=== PATIENT | male | born 1965 | race Caucasian/White ===

== ENCOUNTER 2018-02-21 21:13 | Emergency (ER) | payer MEDICAID ==
[~2018-02-21] VITALS: Ht 177.8 cm; Wt 100.0 kg
[~2018-02-21 21:13] MED LIST: ASPI-1130 PO; ATOR40TA72 PO; FOLI1TAB16 PO; HYDR-3973 PO; INSU100C10 SQ; LANTUS SQ; LISI-600 PO; MULT-1179 PO; POTA20TA19 PO; SYRI-641; THI100T PO; WEL625T PO
[2018-02-21 21:23] VITALS: BP 174/88
== END 2018-02-21 22:12 | disposition home or self-care (01) ==
LOC: ER 21:14
DX: E11.42 Type 2 diabetes mellitus with diabetic polyneuropathy (principal); I10 Essential (primary) hypertension; E78.00 Pure hypercholesterolemia, unspecified; Z86.73 Personal history of transient ischemic attack (TIA), and cerebral infarction without residual deficits; Z90.49 Acquired absence of other specified parts of digestive tract; Z98.890 Other specified postprocedural states; Z79.82 Long term (current) use of aspirin; Z79.4 Long term (current) use of insulin; Z79.899 Other long term (current) drug therapy; Z56.0 Unemployment, unspecified
CPT/HCPCS: 99283

== ENCOUNTER 2018-04-03 13:08 | Emergency (ER) | payer MEDICAID ==
[~2018-04-03] VITALS: Ht 167.6 cm; Wt 90.0 kg
[~2018-04-03 13:08] MED LIST changes: -POTA20TA19 PO
[2018-04-03 15:47] VITALS: BP 155/85
== END 2018-04-03 15:48 | disposition home or self-care (01) ==
LOC: ER 13:09
DX: S00.81XA Abrasion of other part of head, initial encounter (principal); R09.89 Other specified symptoms and signs involving the circulatory and respiratory systems; E78.00 Pure hypercholesterolemia, unspecified; I10 Essential (primary) hypertension; E11.9 Type 2 diabetes mellitus without complications; Z86.73 Personal history of transient ischemic attack (TIA), and cerebral infarction without residual deficits; Z90.49 Acquired absence of other specified parts of digestive tract; Z98.890 Other specified postprocedural states; Z59.0 Homelessness; Z56.0 Unemployment, unspecified; Z79.82 Long term (current) use of aspirin; Z79.899 Other long term (current) drug therapy; Z79.4 Long term (current) use of insulin; W01.198A Fall on same level from slipping, tripping and stumbling with subsequent striking against other object, initial encounter; Y93.89 Activity, other specified; Y92.89 Other specified places as the place of occurrence of the external cause; Y99.9 Unspecified external cause status
CPT/HCPCS: 71045; 99284

== ENCOUNTER 2018-04-19 19:44 | Emergency (ER) | payer MEDICAID ==
[~2018-04-19] VITALS: Ht 180.3 cm; Wt 100.0 kg
[2018-04-19 19:45] VITALS: BP 164/92
[2018-04-19] MEDS ORDERED: LISI-600 PO (20:52)
== END 2018-04-19 20:59 | disposition home or self-care (01) ==
LOC: ER 20:02
DX: S02.2XXA Fracture of nasal bones, initial encounter for closed fracture (principal); I10 Essential (primary) hypertension; E11.9 Type 2 diabetes mellitus without complications; E78.00 Pure hypercholesterolemia, unspecified; Z90.49 Acquired absence of other specified parts of digestive tract; Z59.0 Homelessness; Z56.0 Unemployment, unspecified; Z79.82 Long term (current) use of aspirin; Z76.0 Encounter for issue of repeat prescription; Z79.899 Other long term (current) drug therapy; Z86.73 Personal history of transient ischemic attack (TIA), and cerebral infarction without residual deficits; Y04.0XXA Assault by unarmed brawl or fight, initial encounter; Y93.89 Activity, other specified; Y99.8 Other external cause status; Y92.89 Other specified places as the place of occurrence of the external cause
CPT/HCPCS: 99283

== ENCOUNTER 2018-06-03 11:20 | Emergency (ER) | payer MEDICAID ==
[~2018-06-03] VITALS: Ht 180.3 cm; Wt 81.8 kg
[2018-06-03 11:39] VITALS: BP 153/110
[2018-06-03] MEDS ORDERED: AZIT-63 PO (15:02)
== END 2018-06-03 15:11 | disposition home or self-care (01) ==
LOC: ER 11:20
DX: J06.9 Acute upper respiratory infection, unspecified (principal); E78.00 Pure hypercholesterolemia, unspecified; I10 Essential (primary) hypertension; E11.9 Type 2 diabetes mellitus without complications; Z86.73 Personal history of transient ischemic attack (TIA), and cerebral infarction without residual deficits; Z90.49 Acquired absence of other specified parts of digestive tract; Z98.890 Other specified postprocedural states; Z79.82 Long term (current) use of aspirin; Z79.4 Long term (current) use of insulin; Z79.899 Other long term (current) drug therapy; Z59.0 Homelessness; Z56.0 Unemployment, unspecified
CPT/HCPCS: 99283

== ENCOUNTER 2018-06-20 10:39 | Inpatient (IN) | payer MEDICAID ==
[~2018-06-20] VITALS: Ht 180.3 cm; Wt 86.4 kg
[~2018-06-20 10:39] MED LIST changes: +AZIT-63 PO
[2018-06-20] MEDS ORDERED: acetaminophen 325mg tablet PO ONE (11:35)
--- NOTE | 2018-06-20 11:50 | NUR ---
CALLED AND SPOKE WITH HERIBERTO MORFIN TO COME AND EVALUATE AND ASSIST WITH DISCHARGE
--- NOTE | 2018-06-20 13:19 | NUR ---
PT IS SLEEPING LAYTING ON HIS RIGHT SIDE, RESPIRATIONS EVEN AND UNLABORED, NO DISTRESS NOTED AT THIS TIME
--- NOTE | 2018-06-20 13:20 | NUR ---
HERIBERTO CASE MANAGEMENT SAID THAT SHE DOES NOT KNOW WHAT SHE CAN DO FOR THE PT AT THIS TIME.
--- NOTE | 2018-06-20 14:19 | NUR ---
PT HAS STOOL CAKED TO HIS BACK AND RECTUM. STOOL HAS BEEN CLEANED UP AND NEW CLOTHES GIVEN TO PT. PT CALLED ME A "BITCH" AND I TOLD HIM THAT HE SHOULD BE NICER TO THE PEOPLE THAT ARE HELPING TO TAKE CARE OF HIM.
--- NOTE | 2018-06-20 15:34 | NUR ---
PT SITUATION REVIEWED WITH CHARGE NURSE NAOMI MAYEN. PT IS UN ABLE TO WALK, AND PT'S ELECTRIC WHEELCHAIR IS AT THE CT.
--- NOTE | 2018-06-20 15:35 | NUR ---
NO NEW ORDERS AT THIS TIME.
--- NOTE | 2018-06-20 15:57 | NUR ---
PT SLEEPING LAYING SUPINE, RESPIRATIONS EVEN AND UNLABORED. NO DISTRESS NOTED AT THIS TIME
[2018-06-20] MEDS ORDERED: acetaminophen 325mg tablet PO PRN (17:10)
[2018-06-20] MEDS ORDERED: mag hydrox/Alum hydrox/simeth 30ml oral suspension PO PRN (17:10)
[2018-06-20 17:23] LABS: BASOPHILS # (AUTO) 0.1 X10'3 (0-0.2); BASOPHILS % (AUTO) 0.9 % (0-1); EOSINOPHILS # (AUTO) 0.4 X10'3 (0-0.9); EOSINOPHILS % (AUTO) 3.2 % (0-6); HEMATOCRIT 38.6 % (42.0-52.0); HEMOGLOBIN 12.7 g/dl (14.0-17.9); LYMPHOCYTES # (AUTO) 2.4 X10'3 (1.1-4.8); LYMPHOCYTES % (AUTO) 19.2 % (21-51); MEAN CORPUSCULAR HEMOGLOBIN 27.2 PG (27.0-31.0); MEAN CORPUSCULAR VOLUME 82.5 FL (78-98); MEAN PLATELET VOLUME 8.4 FL (7.4-10.4); MONOCYTES # (AUTO) 0.7 X10'3 (0-0.9); MONOCYTES % (AUTO) 5.9 % (2-12); NEUTROPHILS % (AUTO) 70.8 % (42-75); PLATELET COUNT 500 X10'3 (140-440); RED BLOOD COUNT 4.68 X10'6 (4.70-6.10); RED CELL DISTRIBUTION WIDTH 13.5 % (11.5-14.5); WHITE BLOOD COUNT 12.7 X10'3 (4.5-11.0)
[2018-06-20 17:38] LABS: ALANINE AMINOTRANSFERASE 18 U/L (12-78); ALBUMIN/GLOBULIN RATIO 0.5 (1.1-1.5); ALKALINE PHOSPHATASE 152 IU/L (46-116); ANION GAP 9 (8-16); ASPARTATE AMINO TRANSFERASE 26 U/L (10-37); BILIRUBIN,TOTAL 0.3 MG/DL (0.1-1.0); BLOOD UREA NITROGEN 13 MG/DL (7-18); BUN/CREATININE RATIO 11.2 (5.4-32.0); CALCIUM 8.5 MG/DL (8.5-10.1); CHLORIDE 105 MMOL/L (99-107); CREATININE 1.16 MG/DL (0.60-1.10); GLUCOSE 139 MG/DL (70-104); POTASSIUM 3.5 MMOL/L (3.5-5.1); SODIUM 142 MMOL/L (135-145); TOTAL CARBON DIOXIDE 28.1 MMOL/L (24-32); TOTAL PROTEIN 6.3 G/DL (6.4-8.2); eGFR 66 ML/MIN
--- NOTE | 2018-06-20 17:52 | NUR ---
I PAGED DR KRISTEN THOMPSON . THE PT NEED DO BE ADMITED FOR OBSERVATIONS STATUS.
[2018-06-20] MEDS: normal saline 1000ml 1,000 ML IV SCH (19:13)
[2018-06-20] MEDS: heparin, porcine 5000 units/ml vial SQ SCH (21:14)
[2018-06-20 23:35] LABS: URINE AMPHETAMINE SCREEN NEGATIVE (Neg); URINE BARBITUATE SCREEN NEGATIVE (Neg); URINE BENZODIAZEPINES SCREEN NEGATIVE (Neg); URINE CANNABINOID SCREEN POSITIVE (Neg); URINE COCAINE SCREEN NEGATIVE (Neg); URINE METHADONE SCREEN NEGATIVE (Neg); URINE OPIATE SCREEN NEGATIVE (Neg); URINE PHENCYCLIDINE SCREEN NEGATIVE (Neg)
[2018-06-21] MEDS: normal saline 1000ml 1,000 ML IV SCH ×3 (04:01→23:59)
--- NOTE | 2018-06-21 07:06 | NUR ---
Called to give report to floor RN, charge states patient no longer has room. phlebotomy program coordinator, alistair Godwin.
[2018-06-21] MEDS ORDERED: NO HOME MEDS (07:07)
--- NOTE | 2018-06-21 08:28 | NUR ---
Patient's bedding and gown changed due to patient urinated and had BM on self. Patient mumbling and agressive toward staff.
--- NOTE | 2018-06-21 08:33 | NUR ---
Ashley GILES paged and aware of patient, will review case shortly.
[2018-06-21] MEDS: heparin, porcine 5000 units/ml vial SQ SCH ×2 (09:00→19:17)
[2018-06-21 12:13] LABS: ALBUMIN 1.6 G/DL (3.4-5.0); ANION GAP 7 (8-16); BLOOD UREA NITROGEN 9 MG/DL (7-18); BUN/CREATININE RATIO 7.7 (5.4-32.0); CHLORIDE 107 MMOL/L (99-107); CREATININE 1.17 MG/DL (0.60-1.10); GLUCOSE 130 MG/DL (70-104); POTASSIUM 3.1 MMOL/L (3.5-5.1); SODIUM 142 MMOL/L (135-145); TOTAL CARBON DIOXIDE 27.7 MMOL/L (24-32); eGFR 65 ML/MIN
--- NOTE | 2018-06-21 13:30 | NUR ---
PATIENT SITTING UP AT BEDSIDE, EATING LUNCH.
[2018-06-21] MEDS ORDERED: potassium Cl 20 mEq SR tablet PO STA (13:52)
--- NOTE | 2018-06-21 14:08 | NUR ---
DR. TANG AT BEDSIDE.
--- NOTE | 2018-06-21 15:16 | NUR ---
DIESEL TRACTOR OPERATOR CNADIDO AT BEDSIDE.
--- NOTE | 2018-06-21 17:37 | NUR ---
PT CAME TO FLOOR AT 1730
--- NOTE | 2018-06-21 18:55 | NUR ---
pt. refused to have an iv put in.
[2018-06-21] MEDS: HYDROcodone/acetaminophen 10/325mg tab PO PRN ×2 (19:24→23:16)
[2018-06-21 20:00] VITALS: BP 171/75
--- NOTE | 2018-06-21 20:39 | NUR ---
Patient in room [facility] 344. I have received report from FAHEEM Franco and had the opportunity to ask questions and assume patient care. Addendum: 06/21/18 at 2039 by Florecita Diego RN Amended: Links added.
--- NOTE | 2018-06-21 20:43 | NUR ---
pt. states he will refuse straight cath and states "don't bother me about peeing, I will pee when I'm ready". Addendum: 06/21/18 at 2043 by Florecita Diego RN Amended: Links added.
[2018-06-22 00:06] VITALS: BP 125/53
[2018-06-22] MEDS: HYDROcodone/acetaminophen 10/325mg tab PO PRN ×4 (04:23→22:13)
--- NOTE | 2018-06-22 06:28 | NUR ---
Problems reprioritized. Patient report given, questions answered & plan of care reviewed with FAHEEM Stapleton. Addendum: 06/22/18 at 0629 by Florecita Diego RN Amended: Links added.
--- NOTE | 2018-06-22 06:30 | NUR ---
Patient in room [facility]A 344. I have received report from FAHEEM CESAR and had the opportunity to ask questions and assume patient care.
[2018-06-22] MEDS ORDERED: potassium Cl 20 mEq SR tablet PO PRN (06:40)
[2018-06-22] MEDS ORDERED: potassium Cl 40MEQ/NS 500ml 500 ML IV PRN ×2 (06:40)
[2018-06-22] MEDS ORDERED: magnesium Cl slow-release 64mg tablet PO PRN (06:40)
[2018-06-22 07:00] VITALS: BP 111/65
[2018-06-22] MEDS: potassium Cl 20 mEq SR tablet PO PRN ×3 (07:39→17:49)
[2018-06-22] MEDS: heparin, porcine 5000 units/ml vial SQ SCH ×2 (07:42→19:50)
[2018-06-22 09:31] LABS: BASOPHILS # (AUTO) 0.1 X10'3 (0-0.2); BASOPHILS % (AUTO) 0.5 % (0-1); EOSINOPHILS # (AUTO) 0.3 X10'3 (0-0.9); EOSINOPHILS % (AUTO) 3.1 % (0-6); HEMATOCRIT 32.6 % (42.0-52.0); HEMOGLOBIN 10.8 g/dl (14.0-17.9); LYMPHOCYTES # (AUTO) 1.9 X10'3 (1.1-4.8); LYMPHOCYTES % (AUTO) 18.1 % (21-51); MEAN CORPUSCULAR HEMOGLOBIN 27.4 PG (27.0-31.0); MEAN CORPUSCULAR HGB CONC 33.1 % (33.0-36.5); MEAN CORPUSCULAR VOLUME 82.8 FL (78-98); MEAN PLATELET VOLUME 8.6 FL (7.4-10.4); MONOCYTES # (AUTO) 0.5 X10'3 (0-0.9); MONOCYTES % (AUTO) 5.2 % (2-12); NEUTROPHILS # (AUTO) 7.5 X10'3 (1.8-7.7); NEUTROPHILS % (AUTO) 73.1 % (42-75); PLATELET COUNT 349 X10'3 (140-440); RED BLOOD COUNT 3.93 X10'6 (4.70-6.10); RED CELL DISTRIBUTION WIDTH 13.5 % (11.5-14.5); WHITE BLOOD COUNT 10.2 X10'3 (4.5-11.0)
[2018-06-22 09:47] LABS: ALBUMIN 1.4 G/DL (3.4-5.0); ANION GAP 9 (8-16); BLOOD UREA NITROGEN 10 MG/DL (7-18); BUN/CREATININE RATIO 7.1 (5.4-32.0); CALCIUM 7.9 MG/DL (8.5-10.1); CHLORIDE 106 MMOL/L (99-107); GLUCOSE 211 MG/DL (70-104); POTASSIUM 3.4 MMOL/L (3.5-5.1); SODIUM 141 MMOL/L (135-145); TOTAL CARBON DIOXIDE 26.1 MMOL/L (24-32); eGFR 53 ML/MIN
[2018-06-22] MEDS: normal saline 1000ml 1,000 ML IV SCH ×3 (09:59→20:51)
--- NOTE | 2018-06-22 18:34 | NUR ---
Problems reprioritized. Patient report given, questions answered & plan of care reviewed with FAHEEM LEMOS.
[2018-06-22 20:00] VITALS: BP 153/64
--- NOTE | 2018-06-22 20:44 | NUR ---
Patient in room [facility]A 344. I have received report from FAHEEM Stapleton and had the opportunity to ask questions and assume patient care. Addendum: 06/22/18 at 2046 by Florecita Diego RN Amended: Links added.
[2018-06-23] VITALS: BP 139/70
[2018-06-23] MEDS: HYDROcodone/acetaminophen 10/325mg tab PO PRN ×5 (02:34→20:45)
[2018-06-23 04:45] LABS: MAGNESIUM 1.8 MG/DL (1.5-2.4)
--- NOTE | 2018-06-23 06:26 | NUR ---
Problems reprioritized. Patient report given, questions answered & plan of care reviewed with FAHEEM Cano. Addendum: 06/23/18 at 0627 by Florecita Diego RN Amended: Links added.
[2018-06-23 08:00] VITALS: BP 152/77
[2018-06-23] MEDS: heparin, porcine 5000 units/ml vial SQ SCH ×2 (08:22→20:48)
[2018-06-23] MEDS ORDERED: DOXY100C2 PO (10:18)
[2018-06-23] MEDS ORDERED: levoFLOXACIN 500mg tablet PO ONE (10:20)
[2018-06-23 12:00] VITALS: BP 156/83
--- NOTE | 2018-06-23 15:10 | NUR ---
Initial: Pt admit w/ cold s/p fall from wheelchair. Hx homeless. PO 100% regular diet meeting needs. LBM 06/22. No nutrition concerns at this time. Addendum: 06/23/18 at [address] Amended: Links added.
[2018-06-23] MEDS: normal saline 1000ml 1,000 ML IV SCH (15:59)
--- NOTE | 2018-06-23 17:09 | NUR ---
POWER CHAIR NOT FULLY CHARGED YET PER ENGINEERING. THEY WILL INSPECT IT AND IF I DO NOT HEAR FROM THEM ABOUT ANY PROBLEMS, RJ FROM ENGINEERING SAYS IT WILL BE APPROPRIATE FOR HIM TO TAKE AT THE TIME OF DISCHARGE.
--- NOTE | 2018-06-23 17:20 | NUR ---
PAGE SENT TO DR TANG REGARDING PATIENT NOT BEING ABLE TO LEAVE TONIGHT DUE TO WHEELCHAIR
--- NOTE | 2018-06-23 17:28 | NUR ---
ENGINEERING STATES POWER WHEEL CHAIR IS NOT RUNNING, LIGHT ORANGE (NOT GREEN YET). RJ FROM [employer] WILL BE HER THROUGH EVENING AND WILL TRY AGAIN TO GET IT TO RUN AFTER IT HAS CHARGED MORE.
--- NOTE | 2018-06-23 19:01 | NUR ---
Problems reprioritized. Patient report given, questions answered & plan of care reviewed with MIKIE DELUNA RN.
--- NOTE | 2018-06-23 19:02 | NUR ---
Patient in room [facility] 344. I have received report from GUSTAVO AMYEN and had the opportunity to ask questions and assume patient care.
[2018-06-23 20:00] VITALS: BP 109/74
[2018-06-24] VITALS: BP 102/68
[2018-06-24] MEDS: HYDROcodone/acetaminophen 10/325mg tab PO PRN ×6 (01:00→22:32)
[2018-06-24] MEDS: normal saline 1000ml 1,000 ML IV SCH (01:59)
[2018-06-24 04:55] LABS: MAGNESIUM 1.8 MG/DL (1.5-2.4); POTASSIUM 3.7 MMOL/L (3.5-5.1)
--- NOTE | 2018-06-24 06:31 | NUR ---
Problems reprioritized. Patient report given, questions answered & plan of care reviewed with GUSTAVO MAYEN.
[2018-06-24 07:10] VITALS: BP 159/87
[2018-06-24] MEDS: heparin, porcine 5000 units/ml vial SQ SCH ×2 (08:39→20:51)
[2018-06-24 11:17] VITALS: BP 171/84
[2018-06-24 11:25] VITALS: BP 168/98
[2018-06-24] MEDS ORDERED: cloNIDine 0.1 mg tablet PO ONE (11:40)
[2018-06-24] MEDS: levoFLOXACIN 500mg tablet PO SCH (11:47)
--- NOTE | 2018-06-24 12:12 | NUR ---
pt refuses to sign discharge, aide went down to get power chair and the chair would not work/ possibly plug issue. Aide fixed plug. will will see if it charges and still plan discharge for later today.
--- NOTE | 2018-06-24 12:15 | NUR ---
Patient also appears to be med seeking. Has asked multiple times for norco for discharge, Dr Szymanski has told him he will NOT write him a prescription for norco. Pt says he will come back to [facility] after discharged. Asks for norco often.
--- NOTE | 2018-06-24 12:16 | NUR ---
Gave pt information for [facility] to follow up for chronic pain issues and other medical issues.
[2018-06-24 14:20] VITALS: BP 133/73
--- NOTE | 2018-06-24 18:07 | NUR ---
issues with wheelchair, still not charging. Ashley, social worker aide will look into it tomorrow to see what else we can do. Unable to discharge.
--- NOTE | 2018-06-24 18:07 | NUR ---
Problems reprioritized. Patient report given, questions answered & plan of care reviewed with Kassie Fernando RN.
--- NOTE | 2018-06-24 18:30 | NUR ---
Patient in room [facility]A 344. I have received report from GUSTAVO MAYEN and had the opportunity to ask questions and assume patient care.
[2018-06-24 20:00] VITALS: BP 130/76
[2018-06-24] MEDS: lactobacillus rhamnosus 10,000 MMU CELLS/CAPSULE PO SCH (20:50)
[2018-06-25] VITALS: BP 122/74
[2018-06-25] MEDS: HYDROcodone/acetaminophen 10/325mg tab PO PRN ×4 (04:03→20:31)
[2018-06-25 05:15] LABS: MAGNESIUM 1.9 MG/DL (1.5-2.4); POTASSIUM 3.8 MMOL/L (3.5-5.1)
--- NOTE | 2018-06-25 06:30 | NUR ---
Problems reprioritized. Patient report given, questions answered & plan of care reviewed with IRMA MAYEN.
--- NOTE | 2018-06-25 06:35 | NUR ---
Patient in room [facility]A 344. I have received report from FAHEEM Yousif and had the opportunity to ask questions and assume patient care.
[2018-06-25] MEDS: lactobacillus rhamnosus 10,000 MMU CELLS/CAPSULE PO SCH ×2 (07:20→19:31)
[2018-06-25] MEDS: heparin, porcine 5000 units/ml vial SQ SCH ×2 (07:20→19:32)
[2018-06-25 08:00] VITALS: BP 144/70
[2018-06-25] MEDS: levoFLOXACIN 500mg tablet PO SCH (09:59)
[2018-06-25 11:00] VITALS: BP 140/77
[2018-06-25 18:00] VITALS: BP_SYST 115; BP_SYST 152; BP_DIAS 64; BP_DIAS 83
--- NOTE | 2018-06-25 18:30 | NUR ---
Patient in room [facility]A 344. I have received report from Peyton MAYEN and had the opportunity to ask questions and assume patient care. Pt is in room, resting on back. no s/s of distress
--- NOTE | 2018-06-25 18:32 | NUR ---
Problems reprioritized. Patient report given, questions answered & plan of care reviewed with FAHEEM Anglin.
[2018-06-25] MEDS: acetaminophen 325mg tablet PO PRN (19:31)
[2018-06-26] VITALS: BP 145/68
[2018-06-26] MEDS: HYDROcodone/acetaminophen 10/325mg tab PO PRN ×5 (03:45→22:54)
--- NOTE | 2018-06-26 06:22 | NUR ---
Patient in room [facility]A 344. I have received report from FAHEEM Anglin and had the opportunity to ask questions and assume patient care.
--- NOTE | 2018-06-26 06:38 | NUR ---
Problems reprioritized. Patient report given, questions answered & plan of care reviewed with Peyton MAYEN.
[2018-06-26 07:00] VITALS: BP 149/79
[2018-06-26] MEDS: lactobacillus rhamnosus 10,000 MMU CELLS/CAPSULE PO SCH ×2 (08:12→19:58)
[2018-06-26] MEDS: heparin, porcine 5000 units/ml vial SQ SCH ×2 (08:12→19:59)
[2018-06-26 11:27] LABS: ALANINE AMINOTRANSFERASE 15 U/L (12-78); ALBUMIN 1.7 G/DL (3.4-5.0); ALBUMIN/GLOBULIN RATIO 0.4 (1.1-1.5); ALKALINE PHOSPHATASE 110 IU/L (46-116); ANION GAP 6 (8-16); ASPARTATE AMINO TRANSFERASE 18 U/L (10-37); BILIRUBIN,TOTAL 0.1 MG/DL (0.1-1.0); BLOOD UREA NITROGEN 12 MG/DL (7-18); BUN/CREATININE RATIO 8.6 (5.4-32.0); CALCIUM 8.7 MG/DL (8.5-10.1); CHLORIDE 102 MMOL/L (99-107); CREATININE 1.39 MG/DL (0.60-1.10); GLUCOSE 193 MG/DL (70-104); POTASSIUM 4.1 MMOL/L (3.5-5.1); SODIUM 137 MMOL/L (135-145); TOTAL CARBON DIOXIDE 29.1 MMOL/L (24-32); TOTAL PROTEIN 6.4 G/DL (6.4-8.2); eGFR 53 ML/MIN
[2018-06-26] MEDS: levoFLOXACIN 500mg tablet PO SCH (11:28)
[2018-06-26 12:08] VITALS: BP 154/76
[2018-06-26] MEDS: acetaminophen 325mg tablet PO PRN (16:15)
[2018-06-26 18:00] VITALS: BP 167/92
--- NOTE | 2018-06-26 18:30 | NUR ---
Patient in room EVA 344. I have received report from Peyton MAYEN and had the opportunity to ask questions and assume patient care. Pt is in bed, no s/s of distress.
--- NOTE | 2018-06-26 18:41 | NUR ---
Problems reprioritized. Patient report given, questions answered & plan of care reviewed with FAHEEM Anglin.
[2018-06-26] MEDS: cloNIDine 0.1 mg tablet PO SCH (22:54)
[2018-06-27] VITALS: BP 157/90
[2018-06-27] MEDS: HYDROcodone/acetaminophen 10/325mg tab PO PRN ×5 (04:01→23:24)
--- NOTE | 2018-06-27 06:22 | NUR ---
Problems reprioritized. Patient report given, questions answered & plan of care reviewed with Katie MAYEN. Pt asleep in bed. No s/s of distress.
--- NOTE | 2018-06-27 06:36 | NUR ---
Patient in room [facility]A 344. I have received report from Derrek MAYEN and had the opportunity to ask questions and assume patient care. Patient in bed sleeping, appears comfortable
[2018-06-27 07:30] VITALS: BP 135/58
[2018-06-27] MEDS: heparin, porcine 5000 units/ml vial SQ SCH ×2 (08:20→19:11)
[2018-06-27] MEDS: cloNIDine 0.1 mg tablet PO SCH ×2 (08:20→19:12)
[2018-06-27] MEDS: lactobacillus rhamnosus 10,000 MMU CELLS/CAPSULE PO SCH ×2 (08:20→19:12)
[2018-06-27] MEDS: levoFLOXACIN 500mg tablet PO SCH (11:25)
[2018-06-27 12:02] VITALS: BP 143/63
--- NOTE | 2018-06-27 16:30 | NUR ---
Reassessment: Documented PO intake 75-100% on regular diet meeting nutrient needs. [facility] 06/25. Pt stable and waiting for d/c per MD notes. Will continue to follow. Recommendations: 1) Continue with regular diet 2) Wt per rx Addendum: 06/27/18 at [address] Amended: Links added.
--- NOTE | 2018-06-27 18:00 | NUR ---
PATIENT FOUND BY AID CHOKING. HE WAS ASSISTED AND COUGHED OUT THE MEAT, SUCTION STAFF AT BEDSIDE. PATIENT IS STABLE. NOC NURSE, CHARGE AWARE. WILL CONTINUE TO MONITOR
--- NOTE | 2018-06-27 18:20 | NUR ---
Problems reprioritized. Patient report given, BRI MAYEN questions answered & plan of care reviewed with . PATIENT IN BEED WATCHING TV
--- NOTE | 2018-06-27 18:24 | NUR ---
Received report from FAHEEM Wilson. Patient is awake and alert on room air, in no apparent distress. Laying supine, watching TV. Call light and items of frequent use within reach. Will continue to monitor.
[2018-06-27 20:00] VITALS: BP 143/86
[2018-06-27 23:30] VITALS: BP 123/73
[2018-06-28] MEDS: HYDROcodone/acetaminophen 10/325mg tab PO PRN ×5 (04:21→23:26)
[2018-06-28 05:13] LABS: BASOPHILS # (AUTO) 0.1 X10'3 (0-0.2); BASOPHILS % (AUTO) 1.3 % (0-1); EOSINOPHILS # (AUTO) 0.6 X10'3 (0-0.9); HEMATOCRIT 34.2 % (42.0-52.0); HEMOGLOBIN 11.3 g/dl (14.0-17.9); LYMPHOCYTES # (AUTO) 2.3 X10'3 (1.1-4.8); LYMPHOCYTES % (AUTO) 25.3 % (21-51); MEAN CORPUSCULAR HEMOGLOBIN 27.4 PG (27.0-31.0); MEAN CORPUSCULAR VOLUME 83.1 FL (78-98); MEAN PLATELET VOLUME 8.6 FL (7.4-10.4); MONOCYTES # (AUTO) 0.6 X10'3 (0-0.9); MONOCYTES % (AUTO) 6.5 % (2-12); NEUTROPHILS # (AUTO) 5.6 X10'3 (1.8-7.7); NEUTROPHILS % (AUTO) 60.9 % (42-75); PLATELET COUNT 443 X10'3 (140-440); RED BLOOD COUNT 4.11 X10'6 (4.70-6.10); WHITE BLOOD COUNT 9.3 X10'3 (4.5-11.0)
[2018-06-28 05:22] LABS: ALANINE AMINOTRANSFERASE 15 U/L (12-78); ALBUMIN 1.7 G/DL (3.4-5.0); ALBUMIN/GLOBULIN RATIO 0.4 (1.1-1.5); ALKALINE PHOSPHATASE 98 IU/L (46-116); ANION GAP 10 (8-16); ASPARTATE AMINO TRANSFERASE 19 U/L (10-37); BILIRUBIN,TOTAL 0.1 MG/DL (0.1-1.0); BLOOD UREA NITROGEN 13 MG/DL (7-18); BUN/CREATININE RATIO 8.7 (5.4-32.0); CALCIUM 8.4 MG/DL (8.5-10.1); CHLORIDE 103 MMOL/L (99-107); CREATININE 1.49 MG/DL (0.60-1.10); GLUCOSE 165 MG/DL (70-104); POTASSIUM 3.8 MMOL/L (3.5-5.1); SODIUM 138 MMOL/L (135-145); TOTAL CARBON DIOXIDE 25.1 MMOL/L (24-32); TOTAL PROTEIN 5.9 G/DL (6.4-8.2); eGFR 49 ML/MIN
--- NOTE | 2018-06-28 06:08 | NUR ---
Problems reprioritized. Patient report given, questions answered & plan of care reviewed with FAHEEM Wilson. Patient resting comfortably.
--- NOTE | 2018-06-28 06:15 | NUR ---
Patient in room [facility]A 344. I have received report from Trina MAYEN and had the opportunity to ask questions and assume patient care. Patient in bed sleeping, bed alarm on
[2018-06-28 08:08] VITALS: BP 130/58
[2018-06-28] MEDS: lactobacillus rhamnosus 10,000 MMU CELLS/CAPSULE PO SCH ×2 (09:06→19:31)
[2018-06-28] MEDS: cloNIDine 0.1 mg tablet PO SCH ×2 (09:07→19:31)
[2018-06-28] MEDS: heparin, porcine 5000 units/ml vial SQ SCH ×2 (09:07→19:32)
[2018-06-28] MEDS: levoFLOXACIN 500mg tablet PO SCH (11:13)
[2018-06-28 11:25] VITALS: BP 123/66
--- NOTE | 2018-06-28 15:28 | NUR ---
Patient request a norco 10. The RN covering my patients while I was at lunch noticed his last dose given was 9:07. I gave him a norco 10 at 1325 and it was not saved in the emar. I corrected it in the EMAR. Dose was given for a pain level of 8 but not saved in emar.
--- NOTE | 2018-06-28 18:10 | NUR ---
Problems reprioritized. Patient report given, Trina MAYEN questions answered & plan of care reviewed with . Patient in bed resting
[2018-06-28 19:00] VITALS: BP 148/73
[2018-06-28 23:30] VITALS: BP 131/71
[2018-06-29] MEDS: HYDROcodone/acetaminophen 10/325mg tab PO PRN ×4 (03:37→19:17)
--- NOTE | 2018-06-29 06:55 | NUR ---
Patient in room EVA 344. I have received report from Trina MAYEN and had the opportunity to ask questions and assume patient care.
[2018-06-29 07:14] VITALS: BP 138/82
[2018-06-29] MEDS: lactobacillus rhamnosus 10,000 MMU CELLS/CAPSULE PO SCH ×2 (08:20→19:15)
[2018-06-29] MEDS: cloNIDine 0.1 mg tablet PO SCH ×2 (08:20→19:15)
[2018-06-29] MEDS: heparin, porcine 5000 units/ml vial SQ SCH ×2 (08:22→19:16)
[2018-06-29 11:24] VITALS: BP 128/71
[2018-06-29] MEDS: levoFLOXACIN 500mg tablet PO SCH (11:38)
--- NOTE | 2018-06-29 18:05 | NUR ---
Patient in room EVA 344. I have received report from Rasheed MAYEN and had the opportunity to ask questions and assume patient care.
--- NOTE | 2018-06-29 18:49 | NUR ---
Problems reprioritized. Patient report given, questions answered & plan of care reviewed with Hiwot MAYEN.
[2018-06-29 20:00] VITALS: BP 135/77
[2018-06-29 23:00] VITALS: BP 139/74
[2018-06-30] MEDS: HYDROcodone/acetaminophen 10/325mg tab PO PRN ×6 (00:39→22:09)
[2018-06-30 05:53] LABS: ALBUMIN 1.9 G/DL (3.4-5.0); ANION GAP 9 (8-16); BLOOD UREA NITROGEN 14 MG/DL (7-18); BUN/CREATININE RATIO 9.8 (5.4-32.0); CALCIUM 8.4 MG/DL (8.5-10.1); CHLORIDE 102 MMOL/L (99-107); CREATININE 1.43 MG/DL (0.60-1.10); GLUCOSE 156 MG/DL (70-104); POTASSIUM 3.9 MMOL/L (3.5-5.1); SODIUM 137 MMOL/L (135-145); TOTAL CARBON DIOXIDE 25.8 MMOL/L (24-32); eGFR 52 ML/MIN
--- NOTE | 2018-06-30 06:14 | NUR ---
Problems reprioritized. Patient report given, questions answered & plan of care reviewed with Rasheed RN.
[2018-06-30 07:43] VITALS: BP 138/91
[2018-06-30] MEDS: lactobacillus rhamnosus 10,000 MMU CELLS/CAPSULE PO SCH ×2 (07:55→20:22)
[2018-06-30] MEDS: cloNIDine 0.1 mg tablet PO SCH ×2 (07:55→20:22)
[2018-06-30] MEDS: heparin, porcine 5000 units/ml vial SQ SCH ×2 (07:57→20:22)
[2018-06-30] MEDS: levoFLOXACIN 500mg tablet PO SCH (11:29)
[2018-06-30 12:05] VITALS: BP 110/83
--- NOTE | 2018-06-30 19:02 | NUR ---
Problems reprioritized. Patient report given, questions answered & plan of care reviewed with ARSENIO MAYEN.
[2018-06-30 20:00] VITALS: BP 132/71
[2018-07-01 00:30] VITALS: BP 159/81
[2018-07-01] MEDS: HYDROcodone/acetaminophen 10/325mg tab PO PRN ×2 (02:22→08:01)
--- NOTE | 2018-07-01 06:14 | NUR ---
Problems reprioritized. Patient report given, questions answered & plan of care reviewed with FAHEEM Iqbal. Addendum: 07/01/18 at 0614 by Florecita Diego RN Amended: Links added.
--- NOTE | 2018-07-01 06:52 | NUR ---
Patient in room EVA 360. I have received report from Florecita MAYEN and had the opportunity to ask questions and assume patient care.
[2018-07-01] MEDS: lactobacillus rhamnosus 10,000 MMU CELLS/CAPSULE PO SCH ×2 (08:00→19:28)
[2018-07-01] MEDS: cloNIDine 0.1 mg tablet PO SCH ×2 (08:00→19:28)
[2018-07-01] MEDS: heparin, porcine 5000 units/ml vial SQ SCH ×2 (08:02→19:29)
[2018-07-01 09:17] VITALS: BP 145/79
[2018-07-01] MEDS: magnesium hydroxide 30ml (MOM) UD suspension PO PRN (09:21)
[2018-07-01 11:00] VITALS: BP 126/81
[2018-07-01] MEDS: levoFLOXACIN 500mg tablet PO SCH (11:50)
[2018-07-01 18:00] VITALS: BP 135/70
--- NOTE | 2018-07-01 18:30 | NUR ---
Problems reprioritized. Patient report given, questions answered & plan of care reviewed with KOSTAS MAYEN.
--- NOTE | 2018-07-01 18:53 | NUR ---
Patient in room [facility]A 360. I have received report from Rasheed MAYEN and had the opportunity to ask questions and assume patient care. Pt laying comfortably in bed with no signs of distress. Will continue to monitor.
[2018-07-02] VITALS: BP 165/90
--- NOTE | 2018-07-02 06:36 | NUR ---
Problems reprioritized. Patient report given, questions answered & plan of care reviewed with Ariadna MAYEN.
--- NOTE | 2018-07-02 06:40 | NUR ---
Patient in room [facility]A 360. I have received report from Latasha MAYEN and had the opportunity to ask questions and assume patient care.
[2018-07-02 07:47] VITALS: BP 136/84
[2018-07-02] MEDS: lactobacillus rhamnosus 10,000 MMU CELLS/CAPSULE PO SCH ×2 (08:12→20:38)
[2018-07-02] MEDS: heparin, porcine 5000 units/ml vial SQ SCH ×2 (08:12→20:39)
[2018-07-02] MEDS: cloNIDine 0.1 mg tablet PO SCH ×2 (08:12→20:38)
[2018-07-02] MEDS: HYDROcodone/acetaminophen 10/325mg tab PO PRN ×4 (08:12→23:36)
[2018-07-02 11:29] VITALS: BP 141/77
[2018-07-02 18:00] VITALS: BP 137/71
--- NOTE | 2018-07-02 18:14 | NUR ---
Problems reprioritized. Patient report given, questions answered & plan of care reviewed with Latasha MAYEN.
--- NOTE | 2018-07-02 19:08 | NUR ---
Patient in room EVA 360. I have received report from Ariadna MAYEN and had the opportunity to ask questions and assume patient care.
[2018-07-03] VITALS: BP 165/77
[2018-07-03] MEDS: HYDROcodone/acetaminophen 10/325mg tab PO PRN ×2 (03:59→19:40)
--- NOTE | 2018-07-03 06:00 | NUR ---
Patient in room [facility]A 360. I have received report from Latasha MAYEN and had the opportunity to ask questions and assume patient care.
--- NOTE | 2018-07-03 06:14 | NUR ---
Problems reprioritized. Patient report given, questions answered & plan of care reviewed with Ariadna MAYEN. Pt was awake in bed watching tv and drinking coffee with no signs of distress.
[2018-07-03 07:08] VITALS: BP 165/82
[2018-07-03] MEDS: lactobacillus rhamnosus 10,000 MMU CELLS/CAPSULE PO SCH ×2 (08:59→21:29)
[2018-07-03] MEDS: cloNIDine 0.1 mg tablet PO SCH ×2 (08:59→21:29)
[2018-07-03] MEDS: heparin, porcine 5000 units/ml vial SQ SCH ×2 (08:59→21:30)
[2018-07-03 11:43] VITALS: BP 130/71
--- NOTE | 2018-07-03 18:07 | NUR ---
Problems reprioritized. Patient report given, questions answered & plan of care reviewed with Janette MAYEN.
--- NOTE | 2018-07-03 18:30 | NUR ---
Patient in room [facility]A 360. I have received report from SHERRON and had the opportunity to ask questions and assume patient care.
[2018-07-03 19:00] VITALS: BP 145/76
[2018-07-04] VITALS: BP 125/80
--- NOTE | 2018-07-04 | NUR ---
Patient in room EVA 360. I have received report from Janette MAYEN and had the opportunity to ask questions and assume patient care. I agree with physical assessment. Pt resting comfortably, breathing even and unlabored.
--- NOTE | 2018-07-04 00:12 | NUR ---
Problems reprioritized. Patient report given, questions answered & plan of care reviewed with EZIO.
[2018-07-04] MEDS: HYDROcodone/acetaminophen 10/325mg tab PO PRN ×3 (04:37→19:26)
--- NOTE | 2018-07-04 06:26 | NUR ---
Problems reprioritized. Patient report given, questions answered & plan of care reviewed with Antoinette MAYEN.
--- NOTE | 2018-07-04 06:53 | NUR ---
I have received report from Ana Rosa MAYEN and had the opportunity to ask questions and assume patient care.
[2018-07-04 07:11] VITALS: BP 148/74
[2018-07-04] MEDS: lactobacillus rhamnosus 10,000 MMU CELLS/CAPSULE PO SCH ×2 (09:16→19:26)
[2018-07-04] MEDS: cloNIDine 0.1 mg tablet PO SCH ×2 (09:16→19:26)
[2018-07-04] MEDS: heparin, porcine 5000 units/ml vial SQ SCH ×2 (09:17→19:26)
[2018-07-04 12:00] VITALS: BP 122/71
--- NOTE | 2018-07-04 13:22 | NUR ---
Reassessment: Documented PO intake 75-100% on regular diet meeting nutrient needs. [facility] 07/03. Pt stable and waiting for d/c per MD notes. Will continue to follow. Addendum: 07/04/18 at [address] Amended: Links added.
[2018-07-04 18:00] VITALS: BP 138/76
--- NOTE | 2018-07-04 18:17 | NUR ---
Problems reprioritized. Patient report given, questions answered & plan of care reviewed with Ana Rosa MAYEN.
--- NOTE | 2018-07-04 18:30 | NUR ---
Patient in room [facility]A 360. I have received report from Antoinette MAYEN and had the opportunity to ask questions and assume patient care.
[2018-07-05 00:28] VITALS: BP 160/80
[2018-07-05] MEDS: HYDROcodone/acetaminophen 10/325mg tab PO PRN ×5 (01:53→23:36)
--- NOTE | 2018-07-05 06:16 | NUR ---
Patient in room [facility]A 360. I have received report from FAHEEM HOLGUIN and had the opportunity to ask questions and assume patient care.
--- NOTE | 2018-07-05 06:34 | NUR ---
Problems reprioritized. Patient report given, questions answered & plan of care reviewed with Marilyn MAYEN.
[2018-07-05 07:00] VITALS: BP 160/79
--- NOTE | 2018-07-05 08:00 | NUR ---
No insulin given this am. NPO and accucheck 82.
[2018-07-05] MEDS: cloNIDine 0.1 mg tablet PO SCH ×2 (08:57→19:23)
[2018-07-05] MEDS: heparin, porcine 5000 units/ml vial SQ SCH ×2 (08:57→19:23)
[2018-07-05] MEDS: lactobacillus rhamnosus 10,000 MMU CELLS/CAPSULE PO SCH ×2 (08:57→19:23)
--- NOTE | 2018-07-05 10:30 | NUR ---
To angio for dialysis catheter change. Addendum: 07/05/18 at 1816 by Daya Huizar RN WRONG PATIENT - PLEASE DISREGARD
[2018-07-05 11:21] VITALS: BP 145/70
--- NOTE | 2018-07-05 18:16 | NUR ---
Problems reprioritized. Patient report given, questions answered & plan of care reviewed with MIKIE DELUNA RN.
--- NOTE | 2018-07-05 18:30 | NUR ---
Patient in room [facility]A 360. I have received report from LAKSHMI MAYEN and had the opportunity to ask questions and assume patient care.
[2018-07-05 20:00] VITALS: BP 152/79
[2018-07-06] VITALS: BP 161/76
[2018-07-06] MEDS: HYDROcodone/acetaminophen 10/325mg tab PO PRN ×4 (03:45→21:54)
--- NOTE | 2018-07-06 06:35 | NUR ---
Problems reprioritized. Patient report given, questions answered & plan of care reviewed with GARY MAYEN.
--- NOTE | 2018-07-06 06:40 | NUR ---
Patient in room [facility]A 360. I have received report from FAHEEM Davis and had the opportunity to ask questions and assume patient care.
[2018-07-06 07:00] VITALS: BP 155/78
[2018-07-06] MEDS: heparin, porcine 5000 units/ml vial SQ SCH ×2 (08:00→21:55)
[2018-07-06] MEDS: lactobacillus rhamnosus 10,000 MMU CELLS/CAPSULE PO SCH ×2 (08:41→21:53)
[2018-07-06] MEDS: cloNIDine 0.1 mg tablet PO SCH (08:41)
[2018-07-06 11:12] VITALS: BP 125/72
--- NOTE | 2018-07-06 11:30 | NUR ---
Patients mom came by to visit. She said that the patient had lived with her previously but not recently. She said that she can't take him home for another 2 weeks because she has to prepare. She said that she has a brain tumor and can't take him right now. I explained that we most likely can't keep him for another two weeks. Hopefully she will be back to visit when case management and social worker assistant are here.
[2018-07-06 12:16] LABS: BASOPHILS # (AUTO) 0.1 X10'3 (0-0.2); BASOPHILS % (AUTO) 0.7 % (0-1); EOSINOPHILS # (AUTO) 0.6 X10'3 (0-0.9); EOSINOPHILS % (AUTO) 5.2 % (0-6); HEMATOCRIT 36.9 % (42.0-52.0); HEMOGLOBIN 12.2 g/dl (14.0-17.9); LYMPHOCYTES # (AUTO) 2.1 X10'3 (1.1-4.8); LYMPHOCYTES % (AUTO) 18.4 % (21-51); MEAN CORPUSCULAR HEMOGLOBIN 27.4 PG (27.0-31.0); MEAN CORPUSCULAR HGB CONC 33.2 % (33.0-36.5); MEAN CORPUSCULAR VOLUME 82.7 FL (78-98); MEAN PLATELET VOLUME 8.1 FL (7.4-10.4); MONOCYTES # (AUTO) 0.6 X10'3 (0-0.9); MONOCYTES % (AUTO) 4.8 % (2-12); NEUTROPHILS # (AUTO) 8.1 X10'3 (1.8-7.7); NEUTROPHILS % (AUTO) 70.9 % (42-75); PLATELET COUNT 493 X10'3 (140-440); RED BLOOD COUNT 4.46 X10'6 (4.70-6.10); RED CELL DISTRIBUTION WIDTH 12.4 % (11.5-14.5); WHITE BLOOD COUNT 11.5 X10'3 (4.5-11.0)
[2018-07-06 12:29] LABS: ALANINE AMINOTRANSFERASE 14 U/L (12-78); ALBUMIN/GLOBULIN RATIO 0.5 (1.1-1.5); ALKALINE PHOSPHATASE 101 IU/L (46-116); ANION GAP 7 (8-16); ASPARTATE AMINO TRANSFERASE 16 U/L (10-37); BILIRUBIN,TOTAL 0.2 MG/DL (0.1-1.0); BLOOD UREA NITROGEN 15 MG/DL (7-18); BUN/CREATININE RATIO 10.8 (5.4-32.0); CALCIUM 8.1 MG/DL (8.5-10.1); CHLORIDE 101 MMOL/L (99-107); CREATININE 1.39 MG/DL (0.60-1.10); GLUCOSE 176 MG/DL (70-104); POTASSIUM 3.9 MMOL/L (3.5-5.1); SODIUM 136 MMOL/L (135-145); TOTAL CARBON DIOXIDE 28.3 MMOL/L (24-32); TOTAL PROTEIN 6.2 G/DL (6.4-8.2); eGFR 53 ML/MIN
[2018-07-06] MEDS ORDERED: amLODIPine 5mg tablet PO ONE (15:10)
--- NOTE | 2018-07-06 15:27 | NUR ---
Spoke to Dr. Clifford regarding the one time norvasc because patient had a BP of 125/72 and a HR of 58 at 1100. He said that it wasn't needed and that he could just start it tomorrow.
--- NOTE | 2018-07-06 18:14 | NUR ---
Problems reprioritized. Patient report given, questions answered & plan of care reviewed with FAHEEM Davis.
--- NOTE | 2018-07-06 18:30 | NUR ---
Patient in room [facility]A 360. I have received report from GARY MAYEN and had the opportunity to ask questions and assume patient care.
[2018-07-06 20:00] VITALS: BP 143/80
[2018-07-06] MEDS: magnesium hydroxide 30ml (MOM) UD suspension PO PRN (22:38)
--- NOTE | 2018-07-07 06:30 | NUR ---
Problems reprioritized. Patient report given, questions answered & plan of care reviewed with KERMIT MAYEN.
--- NOTE | 2018-07-07 06:55 | NUR ---
Patient in room [facility]A 360. I have received report from Kassie Fernando RN and had the opportunity to ask questions and assume patient care.
[2018-07-07 07:09] VITALS: BP 129/64
[2018-07-07] MEDS: heparin, porcine 5000 units/ml vial SQ SCH ×2 (08:00→20:21)
[2018-07-07] MEDS: lactobacillus rhamnosus 10,000 MMU CELLS/CAPSULE PO SCH ×2 (08:00→20:20)
[2018-07-07] MEDS: amLODIPine 5mg tablet PO SCH (08:00)
--- NOTE | 2018-07-07 09:50 | NUR ---
Pt. refused all of his medications this morning. Pt. stated, "I don't want any medication". Pt was educated about importance of taking each medication but pt. stated, " I don't care, I don't want them" Will continue to monitor pt.
[2018-07-07 11:00] VITALS: BP 137/69
--- NOTE | 2018-07-07 18:24 | NUR ---
Problems reprioritized. Patient report given, questions answered & plan of care reviewed with Kassie Fernando RN.
--- NOTE | 2018-07-07 18:30 | NUR ---
Patient in room [facility]A 360. I have received report from KERMIT MAYEN and had the opportunity to ask questions and assume patient care.
[2018-07-07 20:00] VITALS: BP 152/80
[2018-07-07] MEDS: HYDROcodone/acetaminophen 10/325mg tab PO PRN (20:20)
[2018-07-08] VITALS: BP 160/90
--- NOTE | 2018-07-08 06:30 | NUR ---
Patient in room [facility]A 360. I have received report from Nica MAYEN and had the opportunity to ask questions and assume patient care.
--- NOTE | 2018-07-08 06:30 | NUR ---
Problems reprioritized. Patient report given, questions answered & plan of care reviewed with COREY RN.
[2018-07-08 07:31] VITALS: BP 137/77
[2018-07-08] MEDS: lactobacillus rhamnosus 10,000 MMU CELLS/CAPSULE PO SCH ×2 (08:36→19:42)
[2018-07-08] MEDS: amLODIPine 5mg tablet PO SCH (08:37)
[2018-07-08] MEDS: heparin, porcine 5000 units/ml vial SQ SCH ×2 (08:41→19:42)
[2018-07-08 11:41] VITALS: BP 148/75
[2018-07-08] MEDS: HYDROcodone/acetaminophen 10/325mg tab PO PRN (11:46)
[2018-07-08 18:00] VITALS: BP 126/72
--- NOTE | 2018-07-08 18:30 | NUR ---
Received report from FAHEEM Iqbal. Patient is awake and alert on room air, in no apparent distress. Visitor at bedside. Call light and items of frequent use within reach. Will continue to monitor.
--- NOTE | 2018-07-08 18:55 | NUR ---
Problems reprioritized. Patient report given, questions answered & plan of care reviewed with Trina MAYEN.
[2018-07-09] VITALS: BP 171/85
--- NOTE | 2018-07-09 06:32 | NUR ---
Patient resting comfortably. Problems reprioritized. Patient report given, questions answered & plan of care reviewed with FAHEEM Iqbal.
[2018-07-09 08:00] VITALS: BP 115/95
[2018-07-09] MEDS: lactobacillus rhamnosus 10,000 MMU CELLS/CAPSULE PO SCH ×2 (08:29→19:16)
[2018-07-09] MEDS: amLODIPine 5mg tablet PO SCH (08:30)
[2018-07-09] MEDS: heparin, porcine 5000 units/ml vial SQ SCH ×2 (08:30→19:17)
[2018-07-09 11:00] VITALS: BP 153/78
[2018-07-09 18:00] VITALS: BP 164/66
--- NOTE | 2018-07-09 18:30 | NUR ---
Problems reprioritized. Patient report given, questions answered & plan of care reviewed with TIERRA MAYEN. PATIENT REQUESTED ICE CREAM AT THIS TIME.
--- NOTE | 2018-07-09 18:31 | NUR ---
Patient in room [facility]A 360. I have received report from FAHEEM Iqbal and had the opportunity to ask questions and assume patient care.
[2018-07-09] MEDS: HYDROcodone/acetaminophen 10/325mg tab PO PRN (19:17)
--- NOTE | 2018-07-09 23:00 | NUR ---
Patient asking for pain meds. He was not due until 2316, and when he heard he had to wait 20 minutes, he cursed and yelled, "then don't give me any!" He was informed again that he could get some in 20 minutes, but he insisted on not having any.
--- NOTE | 2018-07-10 | NUR ---
Patient refused midnight vitals.
--- NOTE | 2018-07-10 06:23 | NUR ---
Problems reprioritized. Patient report given, questions answered & plan of care reviewed with FAHEEM Rosenthal.
--- NOTE | 2018-07-10 06:53 | NUR ---
Patient in room [facility]A 360. I have received report from Sergei MAYEN and had the opportunity to ask questions and assume patient care.
[2018-07-10 07:29] VITALS: BP 155/77
[2018-07-10] MEDS: lactobacillus rhamnosus 10,000 MMU CELLS/CAPSULE PO SCH ×2 (08:56→19:22)
[2018-07-10] MEDS: amLODIPine 5mg tablet PO SCH (08:56)
[2018-07-10] MEDS: HYDROcodone/acetaminophen 10/325mg tab PO PRN ×2 (08:57→19:22)
[2018-07-10] MEDS: heparin, porcine 5000 units/ml vial SQ SCH ×2 (08:57→19:21)
[2018-07-10 11:29] VITALS: BP 166/88
--- NOTE | 2018-07-10 12:59 | NUR ---
DM consult: Pt with hx T2DM. Last A1c 7.8 taken 01/14/18. D/w RN to obtain new A1c. LBM 07/09. Documented PO intake continues at 100% meeting nutrient needs. Will f/u and monitor need for DM ed pending new A1c. Addendum: 07/10/18 at [address] Amended: Links added.
[2018-07-10 18:00] VITALS: BP 154/76
--- NOTE | 2018-07-10 18:32 | NUR ---
Problems reprioritized. Patient report given, questions answered & plan of care reviewed with Sergei MAYEN.
--- NOTE | 2018-07-10 18:33 | NUR ---
Patient in room [facility]A 360. I have received report from FAHEEM Rosenthal and had the opportunity to ask questions and assume patient care.
[2018-07-11 00:15] VITALS: BP 152/83
--- NOTE | 2018-07-11 06:23 | NUR ---
Problems reprioritized. Patient report given, questions answered & plan of care reviewed with FAHEEM Rosenthal.
--- NOTE | 2018-07-11 06:30 | NUR ---
Patient in room [facility]A 360. I have received report from Sergei MAYEN and had the opportunity to ask questions and assume patient care.
[2018-07-11 07:07] VITALS: BP 148/86
[2018-07-11] MEDS: lactobacillus rhamnosus 10,000 MMU CELLS/CAPSULE PO SCH ×2 (07:58→19:35)
[2018-07-11] MEDS: amLODIPine 5mg tablet PO SCH (07:58)
[2018-07-11] MEDS: heparin, porcine 5000 units/ml vial SQ SCH ×2 (07:59→19:37)
[2018-07-11 11:06] VITALS: BP 158/75
--- NOTE | 2018-07-11 18:29 | NUR ---
Problems reprioritized. Patient report given, questions answered & plan of care reviewed with Anisa MAYEN.
[2018-07-11] MEDS: HYDROcodone/acetaminophen 10/325mg tab PO PRN ×2 (19:35→23:48)
[2018-07-11 20:00] VITALS: BP 165/84
[2018-07-12] VITALS: BP 153/93
--- NOTE | 2018-07-12 06:20 | NUR ---
Patient in room [facility]A 360. I have received report from FAHEEM Lange and had the opportunity to ask questions and assume patient care.
--- NOTE | 2018-07-12 06:33 | NUR ---
Problems reprioritized. Patient report given, questions answered & plan of care reviewed with Silvia MAYEN.
[2018-07-12 07:12] VITALS: BP 145/77
[2018-07-12] MEDS: lactobacillus rhamnosus 10,000 MMU CELLS/CAPSULE PO SCH ×2 (09:01→19:44)
[2018-07-12] MEDS: amLODIPine 5mg tablet PO SCH (09:02)
[2018-07-12] MEDS: heparin, porcine 5000 units/ml vial SQ SCH ×2 (09:03→19:45)
[2018-07-12 11:12] VITALS: BP 149/88
--- NOTE | 2018-07-12 12:10 | NUR ---
DM Consult: new A1C 7.4. NURA provided pt w/ written DM ed and RD contact information; passive for additional reinforcement. Addendum: 07/12/18 at [address] Amended: Links added.
[2018-07-12] MEDS: HYDROcodone/acetaminophen 10/325mg tab PO PRN ×2 (13:05→19:26)
--- NOTE | 2018-07-12 18:22 | NUR ---
Problems reprioritized. Patient report given, questions answered & plan of care reviewed with FAHEEM Boland.
[2018-07-12 21:53] VITALS: BP 129/74
[2018-07-13] VITALS: BP 179/95
--- NOTE | 2018-07-13 06:43 | NUR ---
Problems reprioritized. Patient report given, questions answered & plan of care reviewed with KYE. Addendum: 07/13/18 at 0644 by Robert Lea RN Amended: Links added.
[2018-07-13 07:17] VITALS: BP 164/95
[2018-07-13] MEDS: heparin, porcine 5000 units/ml vial SQ SCH ×2 (08:15→21:38)
[2018-07-13] MEDS: lactobacillus rhamnosus 10,000 MMU CELLS/CAPSULE PO SCH ×2 (08:16→21:37)
[2018-07-13] MEDS: amLODIPine 5mg tablet PO SCH (08:16)
[2018-07-13] MEDS: HYDROcodone/acetaminophen 10/325mg tab PO PRN ×2 (08:18→21:43)
--- NOTE | 2018-07-13 18:13 | NUR ---
Problems reprioritized. Patient report given, questions answered & plan of care reviewed with Krystian MAYEN.
[2018-07-13 20:00] VITALS: BP 146/76
[2018-07-14] VITALS: BP 152/80
--- NOTE | 2018-07-14 06:30 | NUR ---
Rec'd report w/ chance to ask and answer questions w/ FAHEEM Boland.
--- NOTE | 2018-07-14 06:51 | NUR ---
Problems reprioritized. Patient report given, questions answered & plan of care reviewed with LYNDON. Addendum: 07/14/18 at 0652 by Robert Lea RN Amended: Links added.
--- NOTE | 2018-07-14 06:53 | NUR ---
Problems reprioritized. Patient report given, questions answered & plan of care reviewed with OLY HANEY. Addendum: 07/14/18 at 0654 by Robert Lea RN Amended: Links added.
[2018-07-14] MEDS: heparin, porcine 5000 units/ml vial SQ SCH ×2 (07:48→20:29)
[2018-07-14] MEDS: lactobacillus rhamnosus 10,000 MMU CELLS/CAPSULE PO SCH ×2 (07:48→20:29)
[2018-07-14] MEDS: amLODIPine 5mg tablet PO SCH (07:53)
[2018-07-14 08:00] VITALS: BP 149/86
--- NOTE | 2018-07-14 10:09 | NUR ---
Patient in room [facility]A 360. I have received report from Jessica MAYEN and had the opportunity to ask questions and assume patient care.
[2018-07-14 11:00] VITALS: BP 150/89
--- NOTE | 2018-07-14 18:30 | NUR ---
Received report from FAHEEM Espinosa. Patient is awake and alert on room air, in no apparent distress. Call light and items of frequent use within reach. Will continue to monitor.
--- NOTE | 2018-07-14 18:34 | NUR ---
Problems reprioritized. Patient report given, questions answered & plan of care reviewed with vikram tian.
[2018-07-14 20:00] VITALS: BP 134/77
[2018-07-14] MEDS: HYDROcodone/acetaminophen 10/325mg tab PO PRN (20:30)
[2018-07-14 23:30] VITALS: BP 133/76
[2018-07-15] MEDS: HYDROcodone/acetaminophen 10/325mg tab PO PRN ×4 (02:11→20:50)
--- NOTE | 2018-07-15 06:30 | NUR ---
Patient in room EVA 360B. I have received report from FAHEEM Mena and had the opportunity to ask questions and assume patient care.
--- NOTE | 2018-07-15 06:46 | NUR ---
Problems reprioritized. Patient report given, questions answered & plan of care reviewed with FAHEEM Lopez.
[2018-07-15 08:08] VITALS: BP 163/91
[2018-07-15] MEDS: lactobacillus rhamnosus 10,000 MMU CELLS/CAPSULE PO SCH ×2 (08:08→20:50)
[2018-07-15] MEDS: heparin, porcine 5000 units/ml vial SQ SCH ×2 (08:08→20:50)
[2018-07-15] MEDS: amLODIPine 5mg tablet PO SCH (08:08)
--- NOTE | 2018-07-15 10:16 | NUR ---
Reassessment: Pt continues with PO intake 100% on the [facility] soft CHO controlled diet meeting nutrient needs. [facility] 07/13. Will continue to follow. Recommendations: 1) Continue with the [facility] soft CHO controlled diet 2) Wt per rx Addendum: 07/15/18 at [address] Amended: Links added.
[2018-07-15 18:00] VITALS: BP 137/76
--- NOTE | 2018-07-15 18:16 | NUR ---
Patient report given, questions answered & plan of care reviewed with FAHEEM Mai.
--- NOTE | 2018-07-15 18:17 | NUR ---
Patient in room [facility]A 360. I have received report from FAHEEM Lopez and had the opportunity to ask questions and assume patient care.
--- NOTE | 2018-07-16 | NUR ---
Patient refused midnight vitals.
--- NOTE | 2018-07-16 06:34 | NUR ---
Problems reprioritized. Patient report given, questions answered & plan of care reviewed with FAHEEM Talbert.
[2018-07-16 07:00] VITALS: BP 159/89
[2018-07-16] MEDS: heparin, porcine 5000 units/ml vial SQ SCH (08:00)
[2018-07-16] MEDS: lactobacillus rhamnosus 10,000 MMU CELLS/CAPSULE PO SCH (08:23)
[2018-07-16] MEDS: amLODIPine 5mg tablet PO SCH (08:23)
[2018-07-16 12:50] VITALS: BP 144/77
[2018-07-16] MEDS ORDERED: NOR5T PO (15:14)
[2018-07-16] MEDS ORDERED: HYDR-3972 PO (15:26)
--- NOTE | 2018-07-16 16:14 | NUR ---
PT HAD ELECTRIC WHEELCHAIR DELIVERED. LEFT WITH TRANSPORT PERSONNEL. ALL BELONGINGS IN HAND. RX FOR NORCO TO BE FILLED BY [facility] WHERE PT OR SOMEONE CAN PICK IT UP. Addendum: 07/16/18 at 1635 by Kathy Ramirez RN Amended: Links added.
== END 2018-07-16 15:45 | disposition home or self-care (01) | DRG 469 ==
LOC: ER 10:39 → ED HOLD 17:08 → SUR 3N 06-21 17:17
PROVIDERS: ADMIT Hospitalist; ATTEND Internal Medicine
DX: N17.9 Acute kidney failure, unspecified (principal); E43 Unspecified severe protein-calorie malnutrition; E11.22 Type 2 diabetes mellitus with diabetic chronic kidney disease; J20.9 Acute bronchitis, unspecified; N18.3 Chronic kidney disease, stage 3 (moderate); E78.00 Pure hypercholesterolemia, unspecified; R29.6 Repeated falls; E86.0 Dehydration; E87.6 Hypokalemia; I12.9 Hypertensive chronic kidney disease with stage 1 through stage 4 chronic kidney disease, or unspecified chronic kidney disease; V00.811A Fall from moving wheelchair (powered), initial encounter; Z59.0 Homelessness; Z79.899 Other long term (current) drug therapy; Z82.49 Family history of ischemic heart disease and other diseases of the circulatory system; Z86.73 Personal history of transient ischemic attack (TIA), and cerebral infarction without residual deficits; Z99.3 Dependence on wheelchair; Z90.49 Acquired absence of other specified parts of digestive tract; Z79.82 Long term (current) use of aspirin; Z79.4 Long term (current) use of insulin; Z68.26 Body mass index [BMI] 26.0-26.9, adult; Y93.89 Activity, other specified; Y92.89 Other specified places as the place of occurrence of the external cause; Y99.8 Other external cause status
CPT/HCPCS: 36415; 71045; 80048; 80053; 80305; 82948; 83036; 83735; 84132; 85025; 87070; 97110; 97116; 97161; 97530; 97535; 97542; 99285; G0378; J1644; J7030

== ENCOUNTER 2018-07-17 20:57 | Emergency (ER) | payer MEDICAID ==
[~2018-07-17] VITALS: Ht 180.3 cm; Wt 80.0 kg
[~2018-07-17 20:57] MED LIST changes: -ASPI-1130 PO; -ATOR40TA72 PO; -AZIT-63 PO; -FOLI1TAB16 PO; +HYDR-3972 PO; -HYDR-3973 PO; -INSU100C10 SQ; -LANTUS SQ; -LISI-600 PO; -MULT-1179 PO; +NOR5T PO; -SYRI-641; -THI100T PO; -WEL625T PO
[2018-07-17 21:32] VITALS: BP 143/110
--- NOTE | 2018-07-18 01:30 | NUR ---
NO RESPONSE FROM LOBBY AFTER 3 ATTEMPTS TO ROOM PT. CALL PLACED TO NUMBER ON FILE, AUTOMATED MESSAGE RECIEVED STATING THAT THE MAIL BOX IS FULL. DR. GUERRA INFORMED.
== END 2018-07-18 01:30 | disposition left against medical advice (07) ==
LOC: ER 20:57
DX: R50.9 Fever, unspecified (principal); Z76.0 Encounter for issue of repeat prescription; Z53.21 Procedure and treatment not carried out due to patient leaving prior to being seen by health care provider
CPT/HCPCS: 82948

== ENCOUNTER 2018-09-14 08:18 | Inpatient (IN) | payer MEDICAID ==
[~2018-09-14] VITALS: Ht 180.3 cm; Wt 100.4 kg
[2018-09-14] VITALS (18 sets, daily range): BP systolic 114–142; BP diastolic 55–71
[2018-09-14] MEDS ORDERED: potassium Cl 40MEQ/NS 500ml 500 ML IV PRN (09:55)
[2018-09-14] MEDS ORDERED: magnesium 4gm in 100ml NS 100 ML IV PRN ×2 (09:55→12:05)
[2018-09-14] MEDS ORDERED: bisacodyl 10mg suppository rectal RC PRN (09:55)
[2018-09-14] MEDS ORDERED: ondansetron/PF 4mg/2ml inj IV PRN (09:55)
[2018-09-14] MEDS ORDERED: sodium phosphate inj. 30 MMOL in dextrose 5%-water 250 ML IV PRN (09:55)
[2018-09-14] MEDS ORDERED: acetaminophen 325mg tablet PO PRN ×2 (09:55)
[2018-09-14] MEDS ORDERED: magnesium 2GM in 50ml NS 50 ML IV PRN (09:55)
[2018-09-14] MEDS ORDERED: potassium Cl 20 mEq SR tablet PO PRN ×2 (09:55)
[2018-09-14] MEDS ORDERED: ipratropium/albuterol 3ml nebule NEB PRN (09:55)
[2018-09-14] MEDS ORDERED: magnesium Cl slow-release 64mg tablet PO PRN (09:55)
[2018-09-14] MEDS ORDERED: sodium phosphate inj. 15 MMOL in dextrose 5%-water 150 ML IV PRN (09:55)
[2018-09-14] MEDS ORDERED: CISatracurium besylate inj. 200 MG in dextrose 5%-water 180 ML IV SCH (10:25)
[2018-09-14] MEDS ORDERED: ATOR40TA3 PO (10:30)
[2018-09-14] MEDS ORDERED: CARV-50 PO (10:30)
[2018-09-14] MEDS ORDERED: CISatracurium **Bolus** 2 mg/ml inj IV ONE (10:31)
[2018-09-14] MEDS ORDERED: HEPARIN IV (10:33)
[2018-09-14] MEDS ORDERED: FAMO-128 PO (10:33)
[2018-09-14] MEDS ORDERED: furosemide 40mg/4ml inj IV STA (10:39)
[2018-09-14] MEDS ORDERED: furosemide 40mg/4ml inj ONE (10:41)
[2018-09-14] MEDS ORDERED: CISatracurium besylate inj. 200 MG in dextrose 5%-water 180 ML IV PRN (10:45)
[2018-09-14 11:00] LABS: BASOPHILS # (AUTO) 0.1 X10'3 (0-0.2); BASOPHILS % (AUTO) 0.7 % (0-1); EOSINOPHILS # (AUTO) 0.9 X10'3 (0-0.9); EOSINOPHILS % (AUTO) 7.7 % (0-6); MEAN CORPUSCULAR HEMOGLOBIN 28.2 PG (27.0-31.0); MEAN CORPUSCULAR HGB CONC 33.2 g/dL (33.0-36.5); MEAN PLATELET VOLUME 8.4 FL (7.4-10.4); MONOCYTES # (AUTO) 1.1 X10'3 (0-0.9); MONOCYTES % (AUTO) 9.5 % (2-12); NEUTROPHILS # (AUTO) 8.3 X10'3 (1.8-7.7); NEUTROPHILS % (AUTO) 73.1 % (42-75); PLATELET COUNT 210 X10'3 (140-440); RED BLOOD COUNT 2.15 X10'6 (4.70-6.10); RED CELL DISTRIBUTION WIDTH 17.5 % (11.5-14.5); WHITE BLOOD COUNT 11.4 X10'3 (4.5-11.0)
[2018-09-14 11:04] LABS: HEMOGLOBIN 6.1 g/dl (14.0-17.9)
[2018-09-14 11:05] LABS: HEMATOCRIT 18.3 % (42.0-52.0)
[2018-09-14 11:08] LABS: PLATELET COUNT 210 X10'3 (140-440)
[2018-09-14] MEDS ORDERED: dextrose ORAL solution 15 GM/59 ML bottle PO PRN ×2 (11:15)
[2018-09-14] MEDS ORDERED: dextrose 50%-water 50ml dispensing syringe IV PRN ×2 (11:15)
[2018-09-14] MEDS ORDERED: glucagon, human recombinant 1mg kit SUBCUT PRN (11:15)
[2018-09-14] MEDS ORDERED: MESSAGE TO PHARMACY PO ONE (11:15)
[2018-09-14] MEDS ORDERED: insulin Lispro (HumaLOG) vial - multi-dose SQ SCH (11:15)
[2018-09-14] MEDS: dexmedetomidine inj. 400 MCG in normal saline 100ml IV soln 100 ML IV PRN ×2 (11:16→18:51)
[2018-09-14] MEDS: DOBUTamine-DoBUTrex 500mg/D5W 250 ML IV SCH (11:17)
[2018-09-14 11:18] LABS: ANISOCYTOSIS 2+; LARGE PLATELETS FEW; MICROCYTOSIS 1+; PLATELET ESTIMATE NORMAL
[2018-09-14 11:19] LABS: HYPOCHROMASIA 1+; POLYCHROMASIA 1+
[2018-09-14 11:27] LABS: ALANINE AMINOTRANSFERASE 24 U/L (12-78); ALBUMIN 2.2 G/DL (3.4-5.0); ALBUMIN/GLOBULIN RATIO 0.5 (1.1-1.5); ALKALINE PHOSPHATASE 159 IU/L (46-116); AMYLASE 68 U/L (25-115); ANION GAP 8 (8-16); ASPARTATE AMINO TRANSFERASE 20 U/L (10-37); BILIRUBIN,TOTAL 0.2 MG/DL (0.1-1.0); BLOOD UREA NITROGEN 85 MG/DL (7-18); BUN/CREATININE RATIO 29.3 (5.4-32.0); CALCIUM 7.6 MG/DL (8.5-10.1); CHLORIDE 105 MMOL/L (99-107); GLUCOSE 160 MG/DL (70-104); LIPASE 396 U/L (73-393); MAGNESIUM 2.7 MG/DL (1.5-2.4); PHOSPHORUS 6.1 MG/DL (2.3-4.5); POTASSIUM 4.8 MMOL/L (3.5-5.1); SODIUM 140 MMOL/L (135-145); TOTAL CARBON DIOXIDE 27.3 MMOL/L (24-32); TOTAL PROTEIN 6.9 G/DL (6.4-8.2); eGFR 23 ML/MIN
[2018-09-14 11:51] LABS: ABG BASE EXCESS 2.1 mmol/L (-2.0-3.0); ABG HCO3 28.1 mmol/L (22.0-26.0); ABG OXYGEN SATURATION 90.2 % (95-98); ABG PCO2 (T) 51.2 mmHg (35.0-48.0); ABG PH (T) 7.355 (7.350-7.450); ABG PO2 (T) 54.7 mmHg (83-108); FCOHb 0.5 % (0.5-1.5); FMetHb 0.1 % (0.3-1.12); FO2Hb 89.7 % (94-100); PATIENT TEMPERATURE 36.6; PEEP 14 cm H2O; RESPIRATORY RATE 20 b/min; TOTAL HEMOGLOBIN 6.7 G/dl (14.0-18.0)
[2018-09-14] MEDS: FENTANYL-0.9 % NACL/PF 100 ML IV PRN (11:53)
[2018-09-14 12:02] LABS: D-DIMER 4.35 MG/L FEU (0-0.50); INR 1.2 INR; PARTIAL THROMBOPLASTIN TIME 34 SECONDS (22-32); PROTHROMBIN TIME 12.1 SECONDS (9.0-12.0)
[2018-09-14] MEDS ORDERED: heparin 10,000 units/1 ML INJ IV ONE (12:05)
[2018-09-14] MEDS ORDERED: calcium chloride inj. 1,000 MG in normal saline 100ml IV soln 100 ML IV PRN (12:05)
[2018-09-14] MEDS ORDERED: sodium phosphate inj. 30 MMOL in normal saline 250ml IV soln 250 ML IV PRN (12:05)
[2018-09-14] MEDS ORDERED: potassium Cl 20mEq/100mL bag 100 ML IV PRN (12:05)
[2018-09-14] MEDS ORDERED: NORepinephrine 8mg/ 250ml NS 250 ML IV ONE (13:33)
--- NOTE | 2018-09-14 13:38 | NUR ---
0930 - Pt arrives via EMS on [facility] accompanied by 2 access director, an RN, and an RT on portable ventilator and telemetry with no gtts infusing. Pt transferred to ICU bed and admission assessment begun. During the skin check the pt's SpO2 began to desaturate into the low 60's. Ambu-bagging begun and Nolan Wallis RN notified. Dr Souza on unit and also notified and comes to bs. Kiran, regional training manager at bs as well.
[2018-09-14] MEDS: Duosol 4K/3 Ca (w/calcium) 5,000 ML HE SCH ×3 (13:47→13:49)
--- NOTE | 2018-09-14 14:30 | NUR ---
Assumed care from FAHEEM Perry d/t pt going on CVVH. Pt unresponsive when assuming care, not moving extremities and had just started on CVVH. On blood pressure support with levo and dobutamine with precedex and fentanyl at low rates. BP's varying between 80's-100/50's-70 per femoral A line. Spoke with Dr. Avila about goals of fluid balance and verbal orders to take 50-100 mls/hour if SBP tolerates it, using levo as tolerated. Unable to lay pt flat and turn d/t desating into the low 80's and high 70's, will attempt to assess skin when pt more stable, previous RN stated sridevi still present in his back from a surgery at [facility].
[2018-09-14] MEDS: heparin 10,000 units/1 ML INJ IV PRN (14:39)
[2018-09-14] MEDS: heparin 25,000 UNIT/250ml bag 250 ML IV SCH (14:43)
[2018-09-14 16:51] LABS: BASOPHILS # (AUTO) 0.1 X10'3 (0-0.2); BASOPHILS % (AUTO) 0.7 % (0-1); EOSINOPHILS # (AUTO) 0.9 X10'3 (0-0.9); EOSINOPHILS % (AUTO) 6.8 % (0-6); HEMATOCRIT 23.4 % (42.0-52.0); HEMOGLOBIN 7.8 g/dl (14.0-17.9); LYMPHOCYTES % (AUTO) 7.9 % (21-51); MEAN CORPUSCULAR HEMOGLOBIN 28.3 PG (27.0-31.0); MEAN CORPUSCULAR HGB CONC 33.4 g/dL (33.0-36.5); MEAN CORPUSCULAR VOLUME 84.6 FL (78-98); MEAN PLATELET VOLUME 8.5 FL (7.4-10.4); MONOCYTES # (AUTO) 1.1 X10'3 (0-0.9); NEUTROPHILS # (AUTO) 9.6 X10'3 (1.8-7.7); NEUTROPHILS % (AUTO) 75.6 % (42-75); PLATELET COUNT 182 X10'3 (140-440); RED BLOOD COUNT 2.77 X10'6 (4.70-6.10); RED CELL DISTRIBUTION WIDTH 17.5 % (11.5-14.5); WHITE BLOOD COUNT 12.6 X10'3 (4.5-11.0)
[2018-09-14 17:08] LABS: ALBUMIN 2.1 G/DL (3.4-5.0); ANION GAP 8 (8-16); BLOOD UREA NITROGEN 74 MG/DL (7-18); BUN/CREATININE RATIO 28.8 (5.4-32.0); CALCIUM 7.8 MG/DL (8.5-10.1); CHLORIDE 106 MMOL/L (99-107); CREATININE 2.57 MG/DL (0.60-1.10); GLUCOSE 111 MG/DL (70-104); MAGNESIUM 2.5 MG/DL (1.5-2.4); PHOSPHORUS 4.5 MG/DL (2.3-4.5); POTASSIUM 4.5 MMOL/L (3.5-5.1); SODIUM 141 MMOL/L (135-145); TOTAL CARBON DIOXIDE 26.9 MMOL/L (24-32); eGFR 26 ML/MIN
[2018-09-14 17:16] LABS: PARTIAL THROMBOPLASTIN TIME 65 SECONDS (22-32)
[2018-09-14] MEDS: midazolam 100mg in NS 100ml 100 ML IV PRN (18:26)
--- NOTE | 2018-09-14 18:43 | NUR ---
Patient in room ICU 2041. I have received report from Micheline MAYEN and had the opportunity to ask questions and assume patient care. CVVH running, pt tolerating, Levophed off.
--- NOTE | 2018-09-14 18:48 | NUR ---
Problems reprioritized. Patient report given, questions answered & plan of care reviewed with FAHEEM Giraldo.
--- NOTE | 2018-09-14 19:48 | NUR ---
Suad here, updated on patient including current ABG results. Orders received. Pt tolerating CVVH, Levophed remains off. Titrating Dobutamine.
[2018-09-14 20:00] LABS: ABG BASE EXCESS 0.1 mmol/L (-2.0-3.0); ABG HCO3 25.6 mmol/L (22.0-26.0); ABG OXYGEN SATURATION 91.6 % (95-98); ABG PCO2 (T) 42.2 mmHg (35.0-48.0); ABG PH (T) 7.393 (7.350-7.450); ABG PO2 (T) 57.4 mmHg (83-108); FCOHb 0.3 % (0.5-1.5); FMetHb 0.2 % (0.3-1.12); FO2Hb 91.1 % (94-100); MINUTE VOLUME 11 L/min; PATIENT TEMPERATURE 35.3; PEEP 14 cm H2O; RESPIRATORY RATE 20 b/min; RESPIRATORY RATE (OBSERVED) 20 b/min; TOTAL HEMOGLOBIN 8.8 G/dl (14.0-18.0)
[2018-09-14] MEDS ORDERED: heparin, porcine 5000 units/ml vial SQ SCH (20:00)
[2018-09-14] MEDS: docusate sod 100mg capsule PO SCH (20:00)
--- NOTE | 2018-09-14 20:00 | NUR ---
Dialysis catheter and arterial line in Collette kailee. Reverse Trendelenberg Addendum: 09/15/18 at 0225 by Kristal Barba RN Amended: Links added.
[2018-09-14] MEDS: insulin glargine (Lantus) pen - multi-dose SQ SCH (20:42)
[2018-09-14 21:50] LABS: OXYGEN SATURATION (MIXED VEN) 65.5 % (60-80); PO2 MIXED VENOUS (TEMP COR) 27.4 mmHg (35-46)
[2018-09-14 22:33] LABS: ANION GAP 6 (8-16); BLOOD UREA NITROGEN 65 MG/DL (7-18); BUN/CREATININE RATIO 29.1 (5.4-32.0); CALCIUM 8.2 MG/DL (8.5-10.1); CHLORIDE 105 MMOL/L (99-107); CREATININE 2.23 MG/DL (0.60-1.10); GLUCOSE 103 MG/DL (70-104); PHOSPHORUS 3.5 MG/DL (2.3-4.5); POTASSIUM 4.4 MMOL/L (3.5-5.1); SODIUM 139 MMOL/L (135-145); eGFR 31 ML/MIN
[2018-09-14 22:34] LABS: ALBUMIN 2.1 G/DL (3.4-5.0); MAGNESIUM 2.3 MG/DL (1.5-2.4)
[2018-09-14 22:36] LABS: PARTIAL THROMBOPLASTIN TIME 48 SECONDS (22-32)
[2018-09-14 22:53] LABS: BASOPHILS # (AUTO) 0.1 X10'3 (0-0.2); BASOPHILS % (AUTO) 0.6 % (0-1); EOSINOPHILS # (AUTO) 0.9 X10'3 (0-0.9); EOSINOPHILS % (AUTO) 7.9 % (0-6); HEMATOCRIT 23.2 % (42.0-52.0); HEMOGLOBIN 7.8 g/dl (14.0-17.9); LYMPHOCYTES # (AUTO) 0.9 X10'3 (1.1-4.8); MEAN CORPUSCULAR HEMOGLOBIN 28.5 PG (27.0-31.0); MEAN CORPUSCULAR HGB CONC 33.8 g/dL (33.0-36.5); MEAN CORPUSCULAR VOLUME 84.4 FL (78-98); MEAN PLATELET VOLUME 8.4 FL (7.4-10.4); MONOCYTES # (AUTO) 0.8 X10'3 (0-0.9); MONOCYTES % (AUTO) 7.3 % (2-12); NEUTROPHILS # (AUTO) 8.4 X10'3 (1.8-7.7); NEUTROPHILS % (AUTO) 76.2 % (42-75); PLATELET COUNT 158 X10'3 (140-440); RED BLOOD COUNT 2.75 X10'6 (4.70-6.10)
[2018-09-15] VITALS (24 sets, daily range): BP systolic 104–148; BP diastolic 44–69
[2018-09-15] MEDS: FENTANYL-0.9 % NACL/PF 100 ML IV PRN ×2 (00:43→12:57)
[2018-09-15] MEDS: Duosol 4K/3 Ca (w/calcium) 5,000 ML HE SCH ×2 (00:44→22:54)
[2018-09-15] MEDS: DOBUTamine-DoBUTrex 500mg/D5W 250 ML IV SCH ×2 (01:59→16:04)
--- NOTE | 2018-09-15 03:22 | NUR ---
Current ABG result called to Suad. Orders received to follow ARDS protocol. Pt hypothermic, victoria gallardo in use. CVVH running.
[2018-09-15 03:25] LABS: ABG OXYGEN SATURATION 88.5 % (95-98); ABG PH (T) 7.457 (7.350-7.450); ABG PO2 (T) 46.2 mmHg (83-108); FCOHb 0.4 % (0.5-1.5); FMetHb 0.2 % (0.3-1.12); MINUTE VOLUME 11 L/min; PATIENT TEMPERATURE 34.5; PEEP 14 cm H2O; RESPIRATORY RATE 20 b/min; RESPIRATORY RATE (OBSERVED) 20 b/min; TOTAL HEMOGLOBIN 8.4 G/dl (14.0-18.0)
[2018-09-15 04:31] LABS: BASOPHILS # (AUTO) 0.1 X10'3 (0-0.2); BASOPHILS % (AUTO) 0.7 % (0-1); EOSINOPHILS # (AUTO) 0.9 X10'3 (0-0.9); EOSINOPHILS % (AUTO) 10.4 % (0-6); HEMATOCRIT 22.6 % (42.0-52.0); HEMOGLOBIN 7.5 g/dl (14.0-17.9); LYMPHOCYTES # (AUTO) 0.9 X10'3 (1.1-4.8); LYMPHOCYTES % (AUTO) 9.9 % (21-51); MEAN CORPUSCULAR HEMOGLOBIN 28.2 PG (27.0-31.0); MEAN CORPUSCULAR HGB CONC 33.3 g/dL (33.0-36.5); MEAN CORPUSCULAR VOLUME 84.6 FL (78-98); MEAN PLATELET VOLUME 8.4 FL (7.4-10.4); MONOCYTES # (AUTO) 0.7 X10'3 (0-0.9); MONOCYTES % (AUTO) 7.3 % (2-12); NEUTROPHILS # (AUTO) 6.5 X10'3 (1.8-7.7); NEUTROPHILS % (AUTO) 71.7 % (42-75); PLATELET COUNT 154 X10'3 (140-440); RED BLOOD COUNT 2.67 X10'6 (4.70-6.10); RED CELL DISTRIBUTION WIDTH 16.9 % (11.5-14.5); WHITE BLOOD COUNT 9.1 X10'3 (4.5-11.0)
[2018-09-15 04:32] LABS: PARTIAL THROMBOPLASTIN TIME 49 SECONDS (22-32)
[2018-09-15 04:41] LABS: ABG BASE EXCESS 1.6 mmol/L (-2.0-3.0); ABG HCO3 27.5 mmol/L (22.0-26.0); ABG OXYGEN SATURATION 93.7 % (95-98); ABG PCO2 (T) 45.3 mmHg (35.0-48.0); ABG PO2 (T) 63.4 mmHg (83-108); FCOHb 0.3 % (0.5-1.5); FO2Hb 93.4 % (94-100); MINUTE VOLUME 9 L/min; PATIENT TEMPERATURE 34.7; PEEP 18 cm H2O; RESPIRATORY RATE 24 b/min; RESPIRATORY RATE (OBSERVED) 24 b/min; TOTAL HEMOGLOBIN 8.4 G/dl (14.0-18.0)
[2018-09-15 04:43] LABS: ALANINE AMINOTRANSFERASE 23 U/L (12-78); ALBUMIN/GLOBULIN RATIO 0.5 (1.1-1.5); ALKALINE PHOSPHATASE 150 IU/L (46-116); ANION GAP 6 (8-16); ASPARTATE AMINO TRANSFERASE 24 U/L (10-37); BILIRUBIN,TOTAL 0.5 MG/DL (0.1-1.0); BLOOD UREA NITROGEN 54 MG/DL (7-18); BUN/CREATININE RATIO 27.8 (5.4-32.0); CALCIUM 8.1 MG/DL (8.5-10.1); CHLORIDE 106 MMOL/L (99-107); CREATININE 1.94 MG/DL (0.60-1.10); GLUCOSE 80 MG/DL (70-104); MAGNESIUM 2.2 MG/DL (1.5-2.4); PHOSPHORUS 2.9 MG/DL (2.3-4.5); POTASSIUM 4.2 MMOL/L (3.5-5.1); SODIUM 140 MMOL/L (135-145); TOTAL CARBON DIOXIDE 27.8 MMOL/L (24-32); TOTAL PROTEIN 6.2 G/DL (6.4-8.2); eGFR 36 ML/MIN
[2018-09-15 05:38] LABS: CLARITY,URINE CLOUDY (Clear); COLOR,URINE YELLOW (Yellow); GLUCOSE, URINE NEGATIVE (Neg); KETONES,URINE TRACE mg/dl (Neg); LEUKOCYTE ESTERASE ,URINE TRACE (Neg); NITRITES, URINE NEGATIVE (Neg); OCCULT BLOOD,URINE LARGE (Neg); PROTEIN,URINE >=300 mg/dl (Neg); UROBILINOGEN,URINE 0.2 E.U/dL (0.2-1.0)
[2018-09-15 05:44] LABS: UA COLLECTION TYPE FOLEY CATH
[2018-09-15 05:45] LABS: WBC,URINE 0-4 /HPF (0-4)
[2018-09-15 05:46] LABS: AMORPHOUS URATES 1+; BACTERIA,URINE 1+ /HPF (Neg); HYALINE CASTS 0-3 /LPF (NEGATIVE); SQUAMOUS EPITHELIAL CELL,UR FEW /LPF (FEW)
[2018-09-15] MEDS ORDERED: epiNEPHrine 0.1mg/ml 10ml syringe ONE (06:00)
--- NOTE | 2018-09-15 06:30 | NUR ---
Patient in room ICU 2041. I have received report from FAHEEM Giraldo and had the opportunity to ask questions and assume patient care.
--- NOTE | 2018-09-15 06:31 | NUR ---
Problems reprioritized. Patient report given, questions answered & plan of care reviewed with Virginia MAYEN.
--- NOTE | 2018-09-15 07:55 | NUR ---
Dr Souza at bedside requesting update, discussed the changes over night to increase pt to PEEP of 18 under the ARDs protocol. Discussed worsening appearance to x-ray, possible need for steroids, and that no antibiotics are ordered plus patient's med rec needs to be addressed. He gave orders for ABX, SM and reconciled meds.
[2018-09-15] MEDS: pantoprazole 40 MG vial IV SCH (07:59)
[2018-09-15] MEDS ORDERED: piperacillin/tazo 3.375gm/50ml 50 ML IV SCH (08:00)
[2018-09-15] MEDS: docusate sod 100mg capsule PO SCH ×2 (08:00→20:00)
[2018-09-15] MEDS: linezolid 600mg/300ml PREMIX 300 ML IV SCH ×3 (08:45→20:28)
[2018-09-15] MEDS: methylPREDNISolone sod succ/PF 40mg inj. IV SCH ×3 (08:45→20:27)
[2018-09-15 10:15] LABS: OXYGEN SATURATION (MIXED VEN) 75.7 % (60-80); PO2 MIXED VENOUS (TEMP COR) 41.8 mmHg (35-46)
--- NOTE | 2018-09-15 10:15 | NUR ---
Critical care rounds: discussed patient status, talked about start patient on nutritional feeds, updated on respiratory status, made MD aware that there's an incision on back with multiple sridevi that need to be removed but pt cannot tolerate being all the way on his side for long enough to deal with wound. He states okay to just monitor for now. We discussed doing mixed VBG q6hr in conjunction with dobutamine drip.
[2018-09-15 10:56] LABS: BASOPHILS # (AUTO) 0.1 X10'3 (0-0.2); BASOPHILS % (AUTO) 0.7 % (0-1); EOSINOPHILS # (AUTO) 0.9 X10'3 (0-0.9); HEMATOCRIT 22.7 % (42.0-52.0); HEMOGLOBIN 7.6 g/dl (14.0-17.9); LYMPHOCYTES # (AUTO) 0.7 X10'3 (1.1-4.8); LYMPHOCYTES % (AUTO) 7.5 % (21-51); MEAN CORPUSCULAR HEMOGLOBIN 28.2 PG (27.0-31.0); MEAN CORPUSCULAR HGB CONC 33.5 g/dL (33.0-36.5); MEAN CORPUSCULAR VOLUME 84.3 FL (78-98); MEAN PLATELET VOLUME 8.3 FL (7.4-10.4); MONOCYTES # (AUTO) 0.7 X10'3 (0-0.9); MONOCYTES % (AUTO) 7.4 % (2-12); NEUTROPHILS # (AUTO) 7.1 X10'3 (1.8-7.7); NEUTROPHILS % (AUTO) 74.4 % (42-75); PLATELET COUNT 144 X10'3 (140-440); RED CELL DISTRIBUTION WIDTH 17.3 % (11.5-14.5); WHITE BLOOD COUNT 9.5 X10'3 (4.5-11.0)
[2018-09-15 11:14] LABS: ALBUMIN 1.9 G/DL (3.4-5.0); ANION GAP 2 (8-16); BLOOD UREA NITROGEN 45 MG/DL (7-18); BUN/CREATININE RATIO 26.5 (5.4-32.0); CALCIUM 8.1 MG/DL (8.5-10.1); CHLORIDE 105 MMOL/L (99-107); GLUCOSE 112 MG/DL (70-104); PHOSPHORUS 2.8 MG/DL (2.3-4.5); POTASSIUM 4.5 MMOL/L (3.5-5.1); SODIUM 137 MMOL/L (135-145); TOTAL CARBON DIOXIDE 29.6 MMOL/L (24-32); eGFR 42 ML/MIN
[2018-09-15 11:17] LABS: PARTIAL THROMBOPLASTIN TIME 46 SECONDS (22-32)
--- NOTE | 2018-09-15 12:10 | NUR ---
Tube consult. Patient is intubated and sedated, on ARDS protocol and receiving CVVH. He is s/p trach and PEG. Has increased protein needs related to intubation, ARDS, and CVVH. Pt also presents with fluid overload, will provide water flushes per MD. Recommend: 1. Continuous tube feedings using Vital High Protein starting at 20 ml/hr and advance by 20 ml q 8 hours to goal rate of 85 ml/hr will provide total volume of 2040 ml, 2040 cals, 179 gm protein, and 1705 ml water. 2. Any additional water flush per MD 3. Prealbumin q / Addendum: 09/15/18 at [address] Amended: Links added.
[2018-09-15] MEDS: NORepinephrine 8mg/ 250ml NS 250 ML IV SCH (12:27)
[2018-09-15] MEDS: heparin 25,000 UNIT/250ml bag 250 ML IV SCH ×2 (13:04→15:01)
[2018-09-15] MEDS: midazolam 100mg in NS 100ml 100 ML IV PRN (13:11)
[2018-09-15] MEDS: mineral oil/petrolatum ophthal oint EACHEYE SCH ×2 (14:48→21:03)
[2018-09-15 16:06] LABS: BASOPHILS % (AUTO) 0.5 % (0-1); EOSINOPHILS # (AUTO) 0.2 X10'3 (0-0.9); EOSINOPHILS % (AUTO) 1.8 % (0-6); LYMPHOCYTES # (AUTO) 0.5 X10'3 (1.1-4.8); LYMPHOCYTES % (AUTO) 5.4 % (21-51); MEAN CORPUSCULAR HEMOGLOBIN 28.2 PG (27.0-31.0); MEAN CORPUSCULAR HGB CONC 33.2 g/dL (33.0-36.5); MEAN CORPUSCULAR VOLUME 85.2 FL (78-98); MEAN PLATELET VOLUME 8.5 FL (7.4-10.4); MONOCYTES # (AUTO) 0.2 X10'3 (0-0.9); MONOCYTES % (AUTO) 2.1 % (2-12); NEUTROPHILS % (AUTO) 90.2 % (42-75); PLATELET COUNT 148 X10'3 (140-440); RED BLOOD COUNT 2.82 X10'6 (4.70-6.10); RED CELL DISTRIBUTION WIDTH 17.4 % (11.5-14.5); WHITE BLOOD COUNT 9.9 X10'3 (4.5-11.0)
[2018-09-15] MEDS: piperacillin/tazo 3.375gm/50ml 50 ML IV SCH (16:15)
[2018-09-15 16:17] LABS: ANION GAP 8 (8-16); BLOOD UREA NITROGEN 40 MG/DL (7-18); BUN/CREATININE RATIO 24.7 (5.4-32.0); CALCIUM 8.2 MG/DL (8.5-10.1); CHLORIDE 103 MMOL/L (99-107); CREATININE 1.62 MG/DL (0.60-1.10); GLUCOSE 139 MG/DL (70-104); MAGNESIUM 2.1 MG/DL (1.5-2.4); PHOSPHORUS 3.5 MG/DL (2.3-4.5); POTASSIUM 5.3 MMOL/L (3.5-5.1); SODIUM 138 MMOL/L (135-145); TOTAL CARBON DIOXIDE 27.2 MMOL/L (24-32); eGFR 45 ML/MIN
[2018-09-15 16:25] LABS: OXYGEN SATURATION (MIXED VEN) 80.7 % (60-80); PO2 MIXED VENOUS (TEMP COR) 42.6 mmHg (35-46)
--- NOTE | 2018-09-15 16:34 | NUR ---
Dr Souza was shown the the most recent VBG and states not necessary to continue based on the trends.
[2018-09-15 17:00] LABS: PARTIAL THROMBOPLASTIN TIME 46 SECONDS (22-32)
--- NOTE | 2018-09-15 17:14 | NUR ---
Informed Dr freeman that BP is rising, SBP in 140s and MAP 80s to 90s, the levophed has been off for many hours. He states okay to continue taking off fluid at the same rates but not to go too fast despite the BP improving.
--- NOTE | 2018-09-15 18:27 | NUR ---
Problems reprioritized. Patient report given, questions answered & plan of care reviewed with FAHEEM Giraldo.
--- NOTE | 2018-09-15 18:30 | NUR ---
Patient in room ICU 2041. I have received report from Virginia MAYEN and had the opportunity to ask questions and assume patient care.
[2018-09-15] MEDS ORDERED: HYDROmorphone/NS 1 mg/ml CADD 50 ML IV SCH (19:55)
--- NOTE | 2018-09-15 20:00 | NUR ---
Dialysis catheter and arterial line in keith Aparicio. CVVH running. Addendum: 09/15/18 at 2124 by Kristal Barba RN Amended: Links added.
[2018-09-15] MEDS: atorvastatin 20mg tablet PO SCH (20:28)
[2018-09-15] MEDS: insulin glargine (Lantus) pen - multi-dose SQ SCH (21:00)
[2018-09-15 21:59] LABS: BASOPHILS # (AUTO) 0.1 X10'3 (0-0.2); BASOPHILS % (AUTO) 0.5 % (0-1); EOSINOPHILS % (AUTO) 0.4 % (0-6); HEMATOCRIT 23.8 % (42.0-52.0); HEMOGLOBIN 7.8 g/dl (14.0-17.9); LYMPHOCYTES # (AUTO) 0.7 X10'3 (1.1-4.8); LYMPHOCYTES % (AUTO) 6.8 % (21-51); MEAN CORPUSCULAR HGB CONC 32.8 g/dL (33.0-36.5); MEAN CORPUSCULAR VOLUME 85.3 FL (78-98); MEAN PLATELET VOLUME 8.8 FL (7.4-10.4); MONOCYTES # (AUTO) 0.2 X10'3 (0-0.9); MONOCYTES % (AUTO) 1.6 % (2-12); NEUTROPHILS # (AUTO) 9.6 X10'3 (1.8-7.7); NEUTROPHILS % (AUTO) 90.7 % (42-75); PLATELET COUNT 151 X10'3 (140-440); RED BLOOD COUNT 2.79 X10'6 (4.70-6.10); RED CELL DISTRIBUTION WIDTH 17.3 % (11.5-14.5); WHITE BLOOD COUNT 10.6 X10'3 (4.5-11.0)
[2018-09-15 22:07] LABS: ANION GAP 4 (8-16); BLOOD UREA NITROGEN 38 MG/DL (7-18); BUN/CREATININE RATIO 23.3 (5.4-32.0); CALCIUM 8.1 MG/DL (8.5-10.1); CHLORIDE 103 MMOL/L (99-107); CREATININE 1.63 MG/DL (0.60-1.10); GLUCOSE 189 MG/DL (70-104); MAGNESIUM 1.9 MG/DL (1.5-2.4); PHOSPHORUS 3.6 MG/DL (2.3-4.5); POTASSIUM 5.4 MMOL/L (3.5-5.1); SODIUM 135 MMOL/L (135-145); TOTAL CARBON DIOXIDE 28.5 MMOL/L (24-32); eGFR 44 ML/MIN
[2018-09-15 22:16] LABS: PARTIAL THROMBOPLASTIN TIME 46 SECONDS (22-32)
[2018-09-16] VITALS (24 sets, daily range): BP systolic 104–155; BP diastolic 49–78
[2018-09-16] MEDS: piperacillin/tazo 3.375gm/50ml 50 ML IV SCH ×3 (00:22→16:01)
[2018-09-16] MEDS: methylPREDNISolone sod succ/PF 40mg inj. IV SCH ×4 (02:18→20:25)
[2018-09-16] MEDS: mineral oil/petrolatum ophthal oint EACHEYE SCH ×4 (02:18→20:21)
--- NOTE | 2018-09-16 03:25 | NUR ---
Transferred pt to [facility] with RT assist. Pt's sats recovering slowly w/ transfer. CVVH running.
[2018-09-16 04:20] LABS: ABG BASE EXCESS 2.5 mmol/L (-2.0-3.0); ABG HCO3 29.4 mmol/L (22.0-26.0); ABG OXYGEN SATURATION 95.6 % (95-98); ABG PCO2 (T) 54.1 mmHg (35.0-48.0); ABG PH (T) 7.342 (7.350-7.450); ABG PO2 (T) 72.5 mmHg (83-108); FCOHb 0.1 % (0.5-1.5); FMetHb 0.1 % (0.3-1.12); FO2Hb 95.4 % (94-100); MINUTE VOLUME 8 L/min; PATIENT TEMPERATURE 34.8; PEEP 18 cm H2O; RESPIRATORY RATE 12 b/min; RESPIRATORY RATE (OBSERVED) 24 b/min; TOTAL HEMOGLOBIN 8.8 G/dl (14.0-18.0)
[2018-09-16] MEDS ORDERED: insulin regular, human vial - multi-dose SQ SCH (05:00)
[2018-09-16 05:17] LABS: BASOPHILS % (AUTO) 0.4 % (0-1); EOSINOPHILS % (AUTO) 0.3 % (0-6); HEMATOCRIT 24.1 % (42.0-52.0); LYMPHOCYTES # (AUTO) 0.9 X10'3 (1.1-4.8); LYMPHOCYTES % (AUTO) 8.6 % (21-51); MEAN CORPUSCULAR HEMOGLOBIN 28.3 PG (27.0-31.0); MEAN CORPUSCULAR HGB CONC 33.1 g/dL (33.0-36.5); MEAN CORPUSCULAR VOLUME 85.6 FL (78-98); MEAN PLATELET VOLUME 9.4 FL (7.4-10.4); MONOCYTES # (AUTO) 0.3 X10'3 (0-0.9); MONOCYTES % (AUTO) 2.6 % (2-12); NEUTROPHILS # (AUTO) 8.9 X10'3 (1.8-7.7); NEUTROPHILS % (AUTO) 88.1 % (42-75); PLATELET COUNT 160 X10'3 (140-440); RED BLOOD COUNT 2.82 X10'6 (4.70-6.10); RED CELL DISTRIBUTION WIDTH 17.6 % (11.5-14.5); WHITE BLOOD COUNT 10.1 X10'3 (4.5-11.0)
[2018-09-16 05:23] LABS: ALANINE AMINOTRANSFERASE 27 U/L (12-78); ALBUMIN 2.1 G/DL (3.4-5.0); ALBUMIN/GLOBULIN RATIO 0.4 (1.1-1.5); ALKALINE PHOSPHATASE 168 IU/L (46-116); ANION GAP 6 (8-16); ASPARTATE AMINO TRANSFERASE 25 U/L (10-37); BILIRUBIN,TOTAL 0.3 MG/DL (0.1-1.0); BLOOD UREA NITROGEN 34 MG/DL (7-18); BUN/CREATININE RATIO 22.4 (5.4-32.0); CALCIUM 8.3 MG/DL (8.5-10.1); CHLORIDE 102 MMOL/L (99-107); CREATININE 1.52 MG/DL (0.60-1.10); GLUCOSE 173 MG/DL (70-104); PHOSPHORUS 3.3 MG/DL (2.3-4.5); POTASSIUM 5.2 MMOL/L (3.5-5.1); PREALBUMIN 11.6 MG/DL (19-36); SODIUM 136 MMOL/L (135-145); TOTAL CARBON DIOXIDE 27.9 MMOL/L (24-32); eGFR 48 ML/MIN
[2018-09-16] MEDS: Duosol 4K/3 Ca (w/calcium) 5,000 ML HE SCH ×4 (05:26→22:09)
[2018-09-16 05:44] LABS: PARTIAL THROMBOPLASTIN TIME 48 SECONDS (22-32)
--- NOTE | 2018-09-16 06:30 | NUR ---
Patient in room ICU 2041. I have received report from PARI and had the opportunity to ask questions and assume patient care.
[2018-09-16] MEDS: docusate sodium 100mg/10ml UD cup PO SCH ×2 (08:00→20:21)
[2018-09-16] MEDS: pantoprazole 40 MG vial IV SCH (08:00)
[2018-09-16] MEDS: linezolid 600mg/300ml PREMIX 300 ML IV SCH ×2 (09:00→21:43)
[2018-09-16] MEDS ORDERED: bisacodyl 10mg suppository rectal RC PRN (09:55)
--- NOTE | 2018-09-16 10:00 | NUR ---
update to dr millie alba to continue 150 to 200 cc/hr off cvvh as sbp 140's. fio2 to 90% and peep to 16- tolerating well.
[2018-09-16 11:14] LABS: BASOPHILS % (AUTO) 0.3 % (0-1); EOSINOPHILS % (AUTO) 0.3 % (0-6); HEMATOCRIT 23.9 % (42.0-52.0); HEMOGLOBIN 7.8 g/dl (14.0-17.9); LYMPHOCYTES # (AUTO) 0.9 X10'3 (1.1-4.8); LYMPHOCYTES % (AUTO) 8.9 % (21-51); MEAN CORPUSCULAR HGB CONC 32.6 g/dL (33.0-36.5); MEAN CORPUSCULAR VOLUME 85.9 FL (78-98); MEAN PLATELET VOLUME 9.1 FL (7.4-10.4); MONOCYTES # (AUTO) 0.3 X10'3 (0-0.9); MONOCYTES % (AUTO) 3.1 % (2-12); NEUTROPHILS % (AUTO) 87.4 % (42-75); PLATELET COUNT 172 X10'3 (140-440); RED BLOOD COUNT 2.79 X10'6 (4.70-6.10); RED CELL DISTRIBUTION WIDTH 17.3 % (11.5-14.5); WHITE BLOOD COUNT 10.3 X10'3 (4.5-11.0)
[2018-09-16 11:24] LABS: ALBUMIN 2.1 G/DL (3.4-5.0); ANION GAP 5 (8-16); BLOOD UREA NITROGEN 33 MG/DL (7-18); BUN/CREATININE RATIO 24.1 (5.4-32.0); CALCIUM 8.3 MG/DL (8.5-10.1); CHLORIDE 101 MMOL/L (99-107); CREATININE 1.37 MG/DL (0.60-1.10); GLUCOSE 227 MG/DL (70-104); MAGNESIUM 1.9 MG/DL (1.5-2.4); PHOSPHORUS 2.8 MG/DL (2.3-4.5); POTASSIUM 4.8 MMOL/L (3.5-5.1); SODIUM 135 MMOL/L (135-145); TOTAL CARBON DIOXIDE 28.7 MMOL/L (24-32); eGFR 54 ML/MIN
[2018-09-16 11:28] LABS: PARTIAL THROMBOPLASTIN TIME 46 SECONDS (22-32)
[2018-09-16] MEDS: midazolam 100mg in NS 100ml 100 ML IV PRN (11:48)
--- NOTE | 2018-09-16 14:00 | NUR ---
contact isolation dcd early in the day by id- no recent mrsa. now a call from [facility] with lab dated 09/13/18- sputum mrsa also our prlim sputum now back- gm pos cocci. abgs wnl- fio2 to 79%
--- NOTE | 2018-09-16 15:00 | NUR ---
decreasing dobutamine down- sbp to 120's, hr to 54- doputamine off then on- will observe. theo s/s here- call to niyoana- updated also by nursing. numbers taken. tolerated
[2018-09-16] MEDS: insulin regular, human vial - multi-dose SQ SCH ×2 (15:56→20:48)
[2018-09-16 16:13] LABS: BASOPHILS % (AUTO) 0.4 % (0-1); EOSINOPHILS % (AUTO) 0.2 % (0-6); HEMOGLOBIN 7.5 g/dl (14.0-17.9); LYMPHOCYTES # (AUTO) 0.8 X10'3 (1.1-4.8); MEAN CORPUSCULAR HEMOGLOBIN 27.9 PG (27.0-31.0); MEAN CORPUSCULAR HGB CONC 32.7 g/dL (33.0-36.5); MEAN CORPUSCULAR VOLUME 85.3 FL (78-98); MEAN PLATELET VOLUME 9.5 FL (7.4-10.4); MONOCYTES # (AUTO) 0.6 X10'3 (0-0.9); MONOCYTES % (AUTO) 5.6 % (2-12); NEUTROPHILS # (AUTO) 8.4 X10'3 (1.8-7.7); NEUTROPHILS % (AUTO) 85.8 % (42-75); PLATELET COUNT 173 X10'3 (140-440); RED BLOOD COUNT 2.69 X10'6 (4.70-6.10); RED CELL DISTRIBUTION WIDTH 17.6 % (11.5-14.5); WHITE BLOOD COUNT 9.8 X10'3 (4.5-11.0)
[2018-09-16 16:30] LABS: ALBUMIN 2.1 G/DL (3.4-5.0); ANION GAP 10 (8-16); BLOOD UREA NITROGEN 33 MG/DL (7-18); BUN/CREATININE RATIO 22.8 (5.4-32.0); CALCIUM 8.4 MG/DL (8.5-10.1); CHLORIDE 101 MMOL/L (99-107); CREATININE 1.45 MG/DL (0.60-1.10); GLUCOSE 220 MG/DL (70-104); PHOSPHORUS 2.6 MG/DL (2.3-4.5); POTASSIUM 5.1 MMOL/L (3.5-5.1); SODIUM 138 MMOL/L (135-145); TOTAL CARBON DIOXIDE 27.4 MMOL/L (24-32); eGFR 51 ML/MIN
[2018-09-16 16:33] LABS: PARTIAL THROMBOPLASTIN TIME 39 SECONDS (22-32)
[2018-09-16] MEDS: heparin 10,000 units/1 ML INJ IV PRN (17:02)
[2018-09-16] MEDS: heparin 25,000 UNIT/250ml bag 250 ML IV SCH ×2 (17:03→23:59)
[2018-09-16 17:11] LABS: ABG BASE EXCESS 3.3 mmol/L (-2.0-3.0); ABG HCO3 28.3 mmol/L (22.0-26.0); ABG OXYGEN SATURATION 99.1 % (95-98); ABG PCO2 (T) 45.5 mmHg (35.0-48.0); ABG PH (T) 7.411 (7.350-7.450); ABG PO2 (T) 151.1 mmHg (83-108); FCOHb 0.1 % (0.5-1.5); FLOW 40 L/min; FMetHb 0.3 % (0.3-1.12); FO2Hb 98.7 % (94-100); MINUTE VOLUME 10 L/min; PEEP 14 cm H2O; RESPIRATORY RATE 24 b/min; RESPIRATORY RATE (OBSERVED) 24 b/min; TOTAL HEMOGLOBIN 8.1 G/dl (14.0-18.0)
--- NOTE | 2018-09-16 18:25 | NUR ---
Patient in room ICU 2041. I have received report from FAHEEM Odell and had the opportunity to ask questions and assume patient care with preceptor FAHEEM Giraldo. Patient is on rotorest bed, with CVVH is currently on the ventilator with FiO2 70% and PEEP of 14.
--- NOTE | 2018-09-16 18:30 | NUR ---
Patient in room ICU 2041. I have received report from Cass MAYEN and had the opportunity to ask questions and assume patient care. Pt rotating on Rotorest. CVVH running via [employer]. Dobutamine off, pt bradycardic in the high 50's, all other vital signs stable.
[2018-09-16] MEDS: lactobacillus rhamnosus 10,000 MMU CELLS/CAPSULE PO SCH (20:21)
[2018-09-16] MEDS: atorvastatin 20mg tablet PO SCH (20:21)
--- NOTE | 2018-09-16 20:35 | NUR ---
Pt rotating on Rotorest bed. Addendum: 09/16/18 at 2036 by Kristal Barba RN Amended: Links added.
[2018-09-16] MEDS: insulin glargine (Lantus) pen - multi-dose SQ SCH (22:01)
[2018-09-16 22:28] LABS: BASOPHILS % (AUTO) 0.3 % (0-1); EOSINOPHILS % (AUTO) 0.2 % (0-6); HEMOGLOBIN 7.4 g/dl (14.0-17.9); LYMPHOCYTES # (AUTO) 0.8 X10'3 (1.1-4.8); LYMPHOCYTES % (AUTO) 8.4 % (21-51); MEAN CORPUSCULAR HGB CONC 32.4 g/dL (33.0-36.5); MEAN CORPUSCULAR VOLUME 86.6 FL (78-98); MEAN PLATELET VOLUME 9.5 FL (7.4-10.4); MONOCYTES # (AUTO) 0.4 X10'3 (0-0.9); MONOCYTES % (AUTO) 4.9 % (2-12); NEUTROPHILS # (AUTO) 7.8 X10'3 (1.8-7.7); NEUTROPHILS % (AUTO) 86.2 % (42-75); PLATELET COUNT 152 X10'3 (140-440); RED BLOOD COUNT 2.66 X10'6 (4.70-6.10); RED CELL DISTRIBUTION WIDTH 17.6 % (11.5-14.5); WHITE BLOOD COUNT 9.1 X10'3 (4.5-11.0)
[2018-09-16 22:36] LABS: ALBUMIN 2.1 G/DL (3.4-5.0); ANION GAP 9 (8-16); BLOOD UREA NITROGEN 33 MG/DL (7-18); BUN/CREATININE RATIO 23.9 (5.4-32.0); CALCIUM 8.4 MG/DL (8.5-10.1); CHLORIDE 102 MMOL/L (99-107); CREATININE 1.38 MG/DL (0.60-1.10); GLUCOSE 237 MG/DL (70-104); MAGNESIUM 1.9 MG/DL (1.5-2.4); PHOSPHORUS 1.9 MG/DL (2.3-4.5); POTASSIUM 4.7 MMOL/L (3.5-5.1); SODIUM 138 MMOL/L (135-145); TOTAL CARBON DIOXIDE 27.2 MMOL/L (24-32); eGFR 54 ML/MIN
[2018-09-16 23:41] LABS: PARTIAL THROMBOPLASTIN TIME 65 SECONDS (22-32)
[2018-09-17] VITALS (23 sets, daily range): BP systolic 125–160; BP diastolic 58–82
[2018-09-17] MEDS: NORepinephrine 8mg/ 250ml NS 250 ML IV SCH (00:01)
[2018-09-17] MEDS: piperacillin/tazo 3.375gm/50ml 50 ML IV SCH ×3 (00:15→16:10)
[2018-09-17] MEDS: mineral oil/petrolatum ophthal oint EACHEYE SCH ×4 (02:31→20:41)
[2018-09-17] MEDS: methylPREDNISolone sod succ/PF 40mg inj. IV SCH ×4 (02:32→20:39)
--- NOTE | 2018-09-17 02:33 | NUR ---
Pt opens eyes spontaneously occasionally with sedation reduced. Not following commands. CVVH running.
[2018-09-17] MEDS: insulin regular, human vial - multi-dose SQ SCH ×4 (02:46→21:51)
[2018-09-17 03:46] LABS: ABG BASE EXCESS 2.2 mmol/L (-2.0-3.0); ABG HCO3 26.8 mmol/L (22.0-26.0); ABG OXYGEN SATURATION 98.5 % (95-98); ABG PH (T) 7.449 (7.350-7.450); ABG PO2 (T) 114.4 mmHg (83-108); FCOHb 0.5 % (0.5-1.5); FMetHb 0.3 % (0.3-1.12); FO2Hb 97.7 % (94-100); MINUTE VOLUME 10 L/min; PATIENT TEMPERATURE 35.5; PEEP 14 cm H2O; RESPIRATORY RATE 24 b/min; RESPIRATORY RATE (OBSERVED) 24 b/min; TOTAL HEMOGLOBIN 8.4 G/dl (14.0-18.0)
[2018-09-17] MEDS: Duosol 4K/3 Ca (w/calcium) 5,000 ML HE SCH ×5 (04:32→18:16)
[2018-09-17 04:45] LABS: BASOPHILS % (AUTO) 0.3 % (0-1); EOSINOPHILS % (AUTO) 0.1 % (0-6); HEMATOCRIT 23.7 % (42.0-52.0); HEMOGLOBIN 7.7 g/dl (14.0-17.9); LYMPHOCYTES # (AUTO) 0.7 X10'3 (1.1-4.8); LYMPHOCYTES % (AUTO) 8.3 % (21-51); MEAN CORPUSCULAR HEMOGLOBIN 28.1 PG (27.0-31.0); MEAN CORPUSCULAR HGB CONC 32.4 g/dL (33.0-36.5); MEAN CORPUSCULAR VOLUME 86.7 FL (78-98); MEAN PLATELET VOLUME 9.7 FL (7.4-10.4); MONOCYTES # (AUTO) 0.5 X10'3 (0-0.9); MONOCYTES % (AUTO) 5.3 % (2-12); NEUTROPHILS # (AUTO) 7.7 X10'3 (1.8-7.7); PLATELET COUNT 162 X10'3 (140-440); RED BLOOD COUNT 2.74 X10'6 (4.70-6.10); RED CELL DISTRIBUTION WIDTH 17.5 % (11.5-14.5); WHITE BLOOD COUNT 8.9 X10'3 (4.5-11.0)
[2018-09-17 04:59] LABS: ALANINE AMINOTRANSFERASE 22 U/L (12-78); ALBUMIN 2.2 G/DL (3.4-5.0); ALBUMIN/GLOBULIN RATIO 0.5 (1.1-1.5); ALKALINE PHOSPHATASE 154 IU/L (46-116); ANION GAP 6 (8-16); ASPARTATE AMINO TRANSFERASE 17 U/L (10-37); BILIRUBIN,TOTAL 0.2 MG/DL (0.1-1.0); BLOOD UREA NITROGEN 33 MG/DL (7-18); BUN/CREATININE RATIO 23.4 (5.4-32.0); CALCIUM 8.3 MG/DL (8.5-10.1); CHLORIDE 102 MMOL/L (99-107); CREATININE 1.41 MG/DL (0.60-1.10); GLUCOSE 218 MG/DL (70-104); MAGNESIUM 1.8 MG/DL (1.5-2.4); PHOSPHORUS 1.5 MG/DL (2.3-4.5); POTASSIUM 4.6 MMOL/L (3.5-5.1); SODIUM 137 MMOL/L (135-145); TOTAL CARBON DIOXIDE 28.7 MMOL/L (24-32); eGFR 52 ML/MIN
[2018-09-17 05:02] LABS: PARTIAL THROMBOPLASTIN TIME 46 SECONDS (22-32)
--- NOTE | 2018-09-17 06:02 | NUR ---
Dionne notified of pt's AM Phos level:1.5. No new orders at this time, follow up with in the am.
--- NOTE | 2018-09-17 06:30 | NUR ---
Patient in room ICU 2041. I have received report from Kristal Lewis RN and had the opportunity to ask questions and assume patient care. Patient bradycardic 59beats per minute. On rotorest. 70% FiO2 with PEEP 12. Saturations 93%. Needs ABG after ventilator adjustment. CVVH goal to remove 150-200ml/hr. Neuro status is questionable.
--- NOTE | 2018-09-17 06:33 | NUR ---
Orientee documentation: I have reviewed and agree with all interventions, assessments performed and documented by Kaela MAYEN . [employer] Medication Administration: For this medication-pass time frame, all medication were reviewed, dispensed, administered and documented per hospital policy by Kaela MAYEN . Problems reprioritized. Patient report given, questions answered & plan of care reviewed with Ariadna MAYEN.
[2018-09-17] MEDS: docusate sodium 100mg/10ml UD cup PO SCH ×2 (07:45→20:39)
[2018-09-17] MEDS: DOBUTamine-DoBUTrex 500mg/D5W 250 ML IV SCH (07:45)
[2018-09-17] MEDS: lactobacillus rhamnosus 10,000 MMU CELLS/CAPSULE PO SCH ×2 (07:45→20:39)
[2018-09-17] MEDS: pantoprazole 40 MG vial IV SCH (07:45)
[2018-09-17] MEDS: linezolid 600mg/300ml PREMIX 300 ML IV SCH ×2 (08:16→20:40)
[2018-09-17 10:35] LABS: ABG HCO3 27.8 mmol/L (22.0-26.0); ABG OXYGEN SATURATION 93.3 % (95-98); ABG PCO2 (T) 50.5 mmHg (35.0-48.0); ABG PH (T) 7.359 (7.350-7.450); ABG PO2 (T) 68.1 mmHg (83-108); FCOHb 0.2 % (0.5-1.5); FO2Hb 93.1 % (94-100); MINUTE VOLUME 11 L/min; PEEP 12 cm H2O; RESPIRATORY RATE 20 b/min; RESPIRATORY RATE (OBSERVED) 20 b/min
--- NOTE | 2018-09-17 10:50 | NUR ---
ABG drawn after patient settings changed from rate 25, FIo2 70% and 14peep, to 20rate, 70% and 12peep. Muey RT adjusted rate to 22, due to CO2 rising to 50.5.
[2018-09-17 11:00] LABS: OXYGEN SATURATION (MIXED VEN) 72.6 % (60-80); PO2 MIXED VENOUS (TEMP COR) 38.7 mmHg (35-46)
[2018-09-17 11:06] LABS: BASOPHILS % (AUTO) 0.2 % (0-1); EOSINOPHILS % (AUTO) 0.1 % (0-6); HEMATOCRIT 23.4 % (42.0-52.0); HEMOGLOBIN 7.6 g/dl (14.0-17.9); LYMPHOCYTES # (AUTO) 0.8 X10'3 (1.1-4.8); LYMPHOCYTES % (AUTO) 8.4 % (21-51); MEAN CORPUSCULAR HEMOGLOBIN 28.2 PG (27.0-31.0); MEAN CORPUSCULAR HGB CONC 32.3 g/dL (33.0-36.5); MEAN CORPUSCULAR VOLUME 87.1 FL (78-98); MEAN PLATELET VOLUME 9.5 FL (7.4-10.4); MONOCYTES # (AUTO) 0.4 X10'3 (0-0.9); NEUTROPHILS # (AUTO) 8.1 X10'3 (1.8-7.7); NEUTROPHILS % (AUTO) 87.3 % (42-75); PLATELET COUNT 161 X10'3 (140-440); RED BLOOD COUNT 2.69 X10'6 (4.70-6.10); RED CELL DISTRIBUTION WIDTH 17.6 % (11.5-14.5); WHITE BLOOD COUNT 9.3 X10'3 (4.5-11.0)
[2018-09-17 11:15] LABS: ANION GAP 6 (8-16); BLOOD UREA NITROGEN 31 MG/DL (7-18); BUN/CREATININE RATIO 21.8 (5.4-32.0); CALCIUM 8.1 MG/DL (8.5-10.1); CHLORIDE 100 MMOL/L (99-107); CREATININE 1.42 MG/DL (0.60-1.10); GLUCOSE 311 MG/DL (70-104); MAGNESIUM 1.7 MG/DL (1.5-2.4); PHOSPHORUS 1.3 MG/DL (2.3-4.5); POTASSIUM 4.2 MMOL/L (3.5-5.1); SODIUM 135 MMOL/L (135-145); TOTAL CARBON DIOXIDE 29.1 MMOL/L (24-32); eGFR 52 ML/MIN
[2018-09-17] MEDS: methylnaltrexone br 12mg/0.6ml inj***SubQ only SQ SCH (11:48)
[2018-09-17] MEDS: heparin 10,000 units/1 ML INJ IV PRN (12:51)
[2018-09-17] MEDS: heparin 25,000 UNIT/250ml bag 250 ML IV SCH ×2 (13:06→18:45)
[2018-09-17] MEDS ORDERED: sodium phosphate inj. 15 MMOL in dextrose 5%-water 150 ML IV PRN (13:15)
[2018-09-17] MEDS ORDERED: sodium phosphate inj. 30 MMOL in dextrose 5%-water 250 ML IV PRN (13:15)
[2018-09-17] MEDS ORDERED: potassium phosphate inj 30 MMOL in normal saline 500ml IV soln 490 ML IV PRN (13:20)
[2018-09-17] MEDS: midazolam 100mg in NS 100ml 100 ML IV PRN (13:57)
--- NOTE | 2018-09-17 15:44 | NUR ---
Cony with PICC services is at bedside, will be placing a double lumen PICC in Left upper in order to replace PICC on right upper from July.
--- NOTE | 2018-09-17 16:23 | NUR ---
Extended PIV inserted to the right upper extremity cephalic vein x 1 attempt using ultrasound. Jyotsna well Addendum: 09/17/18 at 1625 by Lalita Villanueva RN Amended: Links added.
[2018-09-17 17:31] LABS: BASOPHILS % (AUTO) 0.1 % (0-1); EOSINOPHILS % (AUTO) 0 % (0-6); LYMPHOCYTES # (AUTO) 0.7 X10'3 (1.1-4.8); LYMPHOCYTES % (AUTO) 8.1 % (21-51); MEAN CORPUSCULAR HEMOGLOBIN 28.3 PG (27.0-31.0); MEAN CORPUSCULAR HGB CONC 32.7 g/dL (33.0-36.5); MEAN CORPUSCULAR VOLUME 86.3 FL (78-98); MEAN PLATELET VOLUME 8.9 FL (7.4-10.4); MONOCYTES # (AUTO) 0.5 X10'3 (0-0.9); MONOCYTES % (AUTO) 5.6 % (2-12); NEUTROPHILS # (AUTO) 7.4 X10'3 (1.8-7.7); NEUTROPHILS % (AUTO) 86.2 % (42-75); PLATELET COUNT 160 X10'3 (140-440); RED BLOOD COUNT 2.43 X10'6 (4.70-6.10); RED CELL DISTRIBUTION WIDTH 17.9 % (11.5-14.5); WHITE BLOOD COUNT 8.5 X10'3 (4.5-11.0)
[2018-09-17 17:34] LABS: HEMATOCRIT 20.9 % (42.0-52.0); HEMOGLOBIN 6.9 g/dl (14.0-17.9)
[2018-09-17 18:17] LABS: BASOPHILS % (AUTO) 0.2 % (0-1); EOSINOPHILS % (AUTO) 0.1 % (0-6); HEMATOCRIT 23.4 % (42.0-52.0); HEMOGLOBIN 7.8 g/dl (14.0-17.9); LYMPHOCYTES # (AUTO) 0.8 X10'3 (1.1-4.8); LYMPHOCYTES % (AUTO) 7.8 % (21-51); MEAN CORPUSCULAR HEMOGLOBIN 28.5 PG (27.0-31.0); MEAN CORPUSCULAR HGB CONC 33.3 g/dL (33.0-36.5); MEAN CORPUSCULAR VOLUME 85.6 FL (78-98); MEAN PLATELET VOLUME 9.2 FL (7.4-10.4); MONOCYTES # (AUTO) 0.6 X10'3 (0-0.9); MONOCYTES % (AUTO) 5.8 % (2-12); NEUTROPHILS # (AUTO) 8.4 X10'3 (1.8-7.7); NEUTROPHILS % (AUTO) 86.1 % (42-75); PLATELET COUNT 177 X10'3 (140-440); RED BLOOD COUNT 2.73 X10'6 (4.70-6.10); WHITE BLOOD COUNT 9.8 X10'3 (4.5-11.0)
[2018-09-17 18:27] LABS: ALBUMIN 2.1 G/DL (3.4-5.0); ANION GAP 5 (8-16); BLOOD UREA NITROGEN 33 MG/DL (7-18); BUN/CREATININE RATIO 25.8 (5.4-32.0); CALCIUM 8.2 MG/DL (8.5-10.1); CHLORIDE 104 MMOL/L (99-107); CREATININE 1.28 MG/DL (0.60-1.10); GLUCOSE 173 MG/DL (70-104); MAGNESIUM 1.6 MG/DL (1.5-2.4); PHOSPHORUS 1.8 MG/DL (2.3-4.5); POTASSIUM 4.6 MMOL/L (3.5-5.1); SODIUM 138 MMOL/L (135-145); TOTAL CARBON DIOXIDE 29.1 MMOL/L (24-32); eGFR 59 ML/MIN
--- NOTE | 2018-09-17 18:30 | NUR ---
Patient in room ICU 2041. I have received report from Ariadna Mathis RN, and had the opportunity to ask questions and assume patient care.
[2018-09-17 18:33] LABS: PARTIAL THROMBOPLASTIN TIME 53 SECONDS (22-32)
--- NOTE | 2018-09-17 18:45 | NUR ---
Problems reprioritized. Patient report given, questions answered & plan of care reviewed with Terrence Dowd RN. Patient needing new Dilaudid CADD.
--- NOTE | 2018-09-17 19:30 | NUR ---
PT on Rotorest bed, tolerating well. PT is trached and mechanically vented, tolerating vent settings well, O2 sat >95%. VSS. All lines are secured to bed and free from snags/pulling. Will continue to monitor.
[2018-09-17] MEDS: atorvastatin 20mg tablet PO SCH (20:40)
[2018-09-17] MEDS: insulin glargine (Lantus) pen - multi-dose SQ SCH (21:46)
[2018-09-17] MEDS: HYDROmorphone/NS 1 mg/ml CADD 50 ML IV SCH (23:00)
--- NOTE | 2018-09-17 23:00 | NUR ---
PT continues to tolerate Rotorest bed. No s/s of distress noted at this time. VSS. Will continue to monitor
[2018-09-18] VITALS (24 sets, daily range): BP systolic 110–175; BP diastolic 50–87
[2018-09-18] MEDS: piperacillin/tazo 3.375gm/50ml 50 ML IV SCH ×3 (00:30→16:25)
[2018-09-18 00:41] LABS: ANION GAP 7 (8-16); BLOOD UREA NITROGEN 33 MG/DL (7-18); CHLORIDE 103 MMOL/L (99-107); CREATININE 1.27 MG/DL (0.60-1.10); GLUCOSE 196 MG/DL (70-104); POTASSIUM 4.4 MMOL/L (3.5-5.1); SODIUM 138 MMOL/L (135-145); TOTAL CARBON DIOXIDE 28.3 MMOL/L (24-32); eGFR 59 ML/MIN
[2018-09-18 00:42] LABS: ALBUMIN 2.2 G/DL (3.4-5.0); MAGNESIUM 1.6 MG/DL (1.5-2.4); PHOSPHORUS 1.4 MG/DL (2.3-4.5)
[2018-09-18 00:46] LABS: PARTIAL THROMBOPLASTIN TIME 45 SECONDS (22-32)
[2018-09-18] MEDS: HYDROmorphone/NS 1 mg/ml CADD 50 ML IV SCH ×12 (01:00→23:00)
[2018-09-18] MEDS: mineral oil/petrolatum ophthal oint EACHEYE SCH ×4 (02:09→20:46)
[2018-09-18] MEDS: methylPREDNISolone sod succ/PF 40mg inj. IV SCH ×4 (02:09→20:46)
[2018-09-18] MEDS: Duosol 4K/3 Ca (w/calcium) 5,000 ML HE SCH ×10 (02:11→21:26)
[2018-09-18] MEDS: insulin regular, human vial - multi-dose SQ SCH ×4 (02:25→20:50)
[2018-09-18 02:54] LABS: BASOPHILS % (AUTO) 0.1 % (0-1); EOSINOPHILS % (AUTO) 0.1 % (0-6); HEMATOCRIT 23.7 % (42.0-52.0); HEMOGLOBIN 7.9 g/dl (14.0-17.9); LYMPHOCYTES # (AUTO) 0.9 X10'3 (1.1-4.8); LYMPHOCYTES % (AUTO) 9.3 % (21-51); MEAN CORPUSCULAR HEMOGLOBIN 28.3 PG (27.0-31.0); MEAN CORPUSCULAR HGB CONC 33.2 g/dL (33.0-36.5); MEAN CORPUSCULAR VOLUME 85.2 FL (78-98); MEAN PLATELET VOLUME 9.4 FL (7.4-10.4); MONOCYTES # (AUTO) 0.7 X10'3 (0-0.9); MONOCYTES % (AUTO) 6.9 % (2-12); NEUTROPHILS # (AUTO) 8.5 X10'3 (1.8-7.7); NEUTROPHILS % (AUTO) 83.6 % (42-75); PLATELET COUNT 182 X10'3 (140-440); RED BLOOD COUNT 2.78 X10'6 (4.70-6.10); RED CELL DISTRIBUTION WIDTH 17.9 % (11.5-14.5); WHITE BLOOD COUNT 10.1 X10'3 (4.5-11.0)
[2018-09-18 03:13] LABS: ALANINE AMINOTRANSFERASE 19 U/L (12-78); ALBUMIN 2.2 G/DL (3.4-5.0); ALBUMIN/GLOBULIN RATIO 0.5 (1.1-1.5); ALKALINE PHOSPHATASE 139 IU/L (46-116); ANION GAP 7 (8-16); ASPARTATE AMINO TRANSFERASE 15 U/L (10-37); BILIRUBIN,TOTAL 0.2 MG/DL (0.1-1.0); BLOOD UREA NITROGEN 33 MG/DL (7-18); CALCIUM 8.3 MG/DL (8.5-10.1); CHLORIDE 103 MMOL/L (99-107); CREATININE 1.22 MG/DL (0.60-1.10); GLUCOSE 171 MG/DL (70-104); MAGNESIUM 1.8 MG/DL (1.5-2.4); PHOSPHORUS 1.4 MG/DL (2.3-4.5); POTASSIUM 4.5 MMOL/L (3.5-5.1); SODIUM 138 MMOL/L (135-145); TOTAL CARBON DIOXIDE 27.8 MMOL/L (24-32); TOTAL PROTEIN 6.8 G/DL (6.4-8.2); eGFR 62 ML/MIN
[2018-09-18 04:16] LABS: ABG BASE EXCESS 0.8 mmol/L (-2.0-3.0); ABG HCO3 25.1 mmol/L (22.0-26.0); ABG OXYGEN SATURATION 98.2 % (95-98); ABG PCO2 (T) 38.5 mmHg (35.0-48.0); ABG PH (T) 7.431 (7.350-7.450); ABG PO2 (T) 115.9 mmHg (83-108); FCOHb 0.6 % (0.5-1.5); FMetHb 0.3 % (0.3-1.12); FO2Hb 97.3 % (94-100); PATIENT TEMPERATURE 36.9; PEEP 12 cm H2O; RESPIRATORY RATE 22 b/min; RESPIRATORY RATE (OBSERVED) 21 b/min; TOTAL HEMOGLOBIN 8.7 G/dl (14.0-18.0)
[2018-09-18] MEDS: CADD PCA waste documentation MC SCH (05:08)
--- NOTE | 2018-09-18 05:38 | NUR ---
Bed stopped and broken down. Personal hygiene and linen change performed. PT had large BM. PT tolerated turning. Bed put back together, PT strapped in and secure. PICC drsg changed using sterile technique d/t being soiled, blood was noted under drsg. Bed turned back on rotation. Observed for 2 full turns to assure no snags or pulling of lines. Will continue to monitor.
--- NOTE | 2018-09-18 06:40 | NUR ---
Patient in room ICU 2041. I have received report from Terrence Dowd RN and had the opportunity to ask questions and assume patient care. HR 60, 95% with FiO2 70% PEEP 10 rate 22. BP 159/66.
--- NOTE | 2018-09-18 06:43 | NUR ---
Problems reprioritized. Patient report given, questions answered & plan of care reviewed with Ariadna MAYEN.
[2018-09-18 07:11] LABS: ALBUMIN 2.2 G/DL (3.4-5.0); ANION GAP 6 (8-16); BLOOD UREA NITROGEN 35 MG/DL (7-18); BUN/CREATININE RATIO 28.2 (5.4-32.0); CHLORIDE 104 MMOL/L (99-107); CREATININE 1.24 MG/DL (0.60-1.10); GLUCOSE 139 MG/DL (70-104); MAGNESIUM 1.8 MG/DL (1.5-2.4); PHOSPHORUS 1.3 MG/DL (2.3-4.5); POTASSIUM 4.4 MMOL/L (3.5-5.1); SODIUM 138 MMOL/L (135-145); TOTAL CARBON DIOXIDE 28.4 MMOL/L (24-32); eGFR 61 ML/MIN
[2018-09-18 07:13] LABS: PARTIAL THROMBOPLASTIN TIME 42 SECONDS (22-32)
[2018-09-18] MEDS: pantoprazole 40 MG vial IV SCH (07:31)
[2018-09-18] MEDS: lactobacillus rhamnosus 10,000 MMU CELLS/CAPSULE PO SCH ×2 (07:31→20:47)
[2018-09-18] MEDS: docusate sodium 100mg/10ml UD cup PO SCH ×2 (07:31→20:47)
[2018-09-18] MEDS: Neutra Phos packet PO PRN ×3 (07:31→20:48)
[2018-09-18] MEDS: heparin 10,000 units/1 ML INJ IV PRN (07:35)
[2018-09-18] MEDS: heparin 25,000 UNIT/250ml bag 250 ML IV SCH ×4 (07:37→23:08)
--- NOTE | 2018-09-18 08:50 | NUR ---
Bed broken down, XLG bowel movement cleaned up, IV line dressings to left groin and right upper arm changed. New hydrophyllic and paste placed.
[2018-09-18] MEDS ORDERED: potassium phosphate inj 30 MMOL in normal saline 500ml IV soln 490 ML IV ONE (09:10)
--- NOTE | 2018-09-18 09:10 | NUR ---
CVVH machine filter due to be changed, Diane from Dialysis is at bedside.
[2018-09-18] MEDS: linezolid 600mg/300ml PREMIX 300 ML IV SCH ×2 (09:49→20:48)
[2018-09-18] MEDS ORDERED: hydrALAZINE 20mg/ml inj. IV PRN (10:10)
--- NOTE | 2018-09-18 10:27 | NUR ---
Reassessment: Pt continue with CVVH, ARDS protocol and rotorest bed per MD progress notes. Pt tolerating TF at goal with residuals 0-150 mL. Noted that patient's wt is down 13.2 kg since admit, likely r/t changes in fluid status as pt is being diuresed with negative fluid balance since admit. LBM 09/14, pt with routine Colace and started on routine Relistor 09/17. Will continue to follow. Recommend: 1. Continuous tube feedings using Vital High Protein starting at 20 ml/hr and advance by 20 ml q 8 hours to goal rate of 85 ml/hr will provide total volume of 2040 ml, 2040 cals, 179 gm protein, and 1705 ml water. 2. Any additional water flush per MD 3. Prealbumin q 4. Monitor need for additonal bowel care 5. Daily wt Addendum: 09/18/18 at [address] Amended: Links added.
--- NOTE | 2018-09-18 12:30 | NUR ---
Patient is having a difficult time maintaining saturations, sats as low as 84% on 70% FiO2. Patient breathing in 30's. Chest xray shows moderate to large pleural effusion to right. CVVH machine is not tolerating the patient being turned to his left on Rotorest bed. Decreased degrees for turn to left. Labs being sent. Will continue to monitor.
[2018-09-18] MEDS: midazolam 100mg in NS 100ml 100 ML IV PRN (12:37)
--- NOTE | 2018-09-18 13:18 | NUR ---
Patient saturations within range, 90% on 90FiO2 PEEP 10. RR 23. Bed turning, CVVH running. WIll continue to monitor.
[2018-09-18 13:28] LABS: ALBUMIN 2.2 G/DL (3.4-5.0); ANION GAP 11 (8-16); BLOOD UREA NITROGEN 36 MG/DL (7-18); BUN/CREATININE RATIO 27.5 (5.4-32.0); CHLORIDE 101 MMOL/L (99-107); CREATININE 1.31 MG/DL (0.60-1.10); GLUCOSE 199 MG/DL (70-104); MAGNESIUM 1.7 MG/DL (1.5-2.4); PHOSPHORUS 1.4 MG/DL (2.3-4.5); POTASSIUM 4.4 MMOL/L (3.5-5.1); SODIUM 138 MMOL/L (135-145); TOTAL CARBON DIOXIDE 26.2 MMOL/L (24-32); eGFR 57 ML/MIN
[2018-09-18 18:07] LABS: ALBUMIN 2.2 G/DL (3.4-5.0); ANION GAP 8 (8-16); BLOOD UREA NITROGEN 35 MG/DL (7-18); BUN/CREATININE RATIO 27.8 (5.4-32.0); CHLORIDE 103 MMOL/L (99-107); CREATININE 1.26 MG/DL (0.60-1.10); GLUCOSE 187 MG/DL (70-104); MAGNESIUM 1.6 MG/DL (1.5-2.4); PHOSPHORUS 2.7 MG/DL (2.3-4.5); POTASSIUM 4.8 MMOL/L (3.5-5.1); SODIUM 138 MMOL/L (135-145); eGFR 60 ML/MIN
--- NOTE | 2018-09-18 18:30 | NUR ---
Problems reprioritized. Patient report given, questions answered & plan of care reviewed with Madeline Kapadia RN. Needs another dose of phos oral.
--- NOTE | 2018-09-18 18:30 | NUR ---
Patient in room ICU 2041. I have received report from Ariadna Mata and had the opportunity to ask questions and assume patient care.
[2018-09-18] MEDS: atorvastatin 20mg tablet PO SCH (20:47)
[2018-09-18] MEDS: insulin glargine (Lantus) pen - multi-dose SQ SCH (20:51)
[2018-09-18 23:37] LABS: BASOPHILS % (AUTO) 0.2 % (0-1); EOSINOPHILS % (AUTO) 0.4 % (0-6); HEMATOCRIT 25.3 % (42.0-52.0); HEMOGLOBIN 8.2 g/dl (14.0-17.9); LYMPHOCYTES # (AUTO) 1.2 X10'3 (1.1-4.8); LYMPHOCYTES % (AUTO) 10.1 % (21-51); MEAN CORPUSCULAR HEMOGLOBIN 27.7 PG (27.0-31.0); MEAN CORPUSCULAR HGB CONC 32.2 g/dL (33.0-36.5); MEAN PLATELET VOLUME 9.1 FL (7.4-10.4); MONOCYTES # (AUTO) 0.8 X10'3 (0-0.9); MONOCYTES % (AUTO) 6.7 % (2-12); NEUTROPHILS # (AUTO) 9.6 X10'3 (1.8-7.7); NEUTROPHILS % (AUTO) 82.6 % (42-75); PLATELET COUNT 139 X10'3 (140-440); RED BLOOD COUNT 2.94 X10'6 (4.70-6.10); RED CELL DISTRIBUTION WIDTH 18.6 % (11.5-14.5); WHITE BLOOD COUNT 11.6 X10'3 (4.5-11.0)
[2018-09-18 23:47] LABS: ALBUMIN 2.2 G/DL (3.4-5.0); ANION GAP 8 (8-16); BLOOD UREA NITROGEN 36 MG/DL (7-18); BUN/CREATININE RATIO 30.3 (5.4-32.0); CHLORIDE 103 MMOL/L (99-107); CREATININE 1.19 MG/DL (0.60-1.10); GLUCOSE 208 MG/DL (70-104); MAGNESIUM 1.6 MG/DL (1.5-2.4); PHOSPHORUS 2.2 MG/DL (2.3-4.5); POTASSIUM 4.6 MMOL/L (3.5-5.1); SODIUM 137 MMOL/L (135-145); TOTAL CARBON DIOXIDE 26.1 MMOL/L (24-32); eGFR 64 ML/MIN
[2018-09-19] VITALS (24 sets, daily range): BP systolic 102–149; BP diastolic 48–71
[2018-09-19] MEDS: piperacillin/tazo 3.375gm/50ml 50 ML IV SCH ×4 (00:12→23:56)
[2018-09-19] MEDS: HYDROmorphone/NS 1 mg/ml CADD 50 ML IV SCH ×12 (01:00→21:52)
[2018-09-19] MEDS: midazolam 100mg in NS 100ml 100 ML IV PRN ×2 (01:04→15:00)
[2018-09-19] MEDS: insulin regular, human vial - multi-dose SQ SCH ×4 (02:13→20:26)
[2018-09-19] MEDS: mineral oil/petrolatum ophthal oint EACHEYE SCH ×4 (02:13→20:17)
[2018-09-19] MEDS: methylPREDNISolone sod succ/PF 40mg inj. IV SCH ×4 (02:14→20:18)
[2018-09-19] MEDS: Neutra Phos packet PO PRN ×3 (02:14→20:20)
[2018-09-19] MEDS: Duosol 4K/3 Ca (w/calcium) 5,000 ML HE SCH ×7 (04:19→22:40)
[2018-09-19 04:51] LABS: ABG BASE EXCESS 3.3 mmol/L (-2.0-3.0); ABG HCO3 27.8 mmol/L (22.0-26.0); ABG OXYGEN SATURATION 95.2 % (95-98); ABG PCO2 (T) 40.1 mmHg (35.0-48.0); ABG PH (T) 7.454 (7.350-7.450); ABG PO2 (T) 71.8 mmHg (83-108); FMetHb 0.2 % (0.3-1.12); MINUTE VOLUME 12 L/min; PATIENT TEMPERATURE 36.1; PEEP 10 cm H2O; RESPIRATORY RATE 22 b/min; RESPIRATORY RATE (OBSERVED) 22 b/min; TOTAL HEMOGLOBIN 9.1 G/dl (14.0-18.0)
[2018-09-19 06:14] LABS: BASOPHILS % (AUTO) 0.1 % (0-1); EOSINOPHILS # (AUTO) 0.1 X10'3 (0-0.9); EOSINOPHILS % (AUTO) 0.6 % (0-6); HEMATOCRIT 25.8 % (42.0-52.0); HEMOGLOBIN 8.3 g/dl (14.0-17.9); LYMPHOCYTES # (AUTO) 1.4 X10'3 (1.1-4.8); LYMPHOCYTES % (AUTO) 10.4 % (21-51); MEAN CORPUSCULAR HEMOGLOBIN 27.9 PG (27.0-31.0); MEAN CORPUSCULAR HGB CONC 32.2 g/dL (33.0-36.5); MEAN CORPUSCULAR VOLUME 86.6 FL (78-98); MEAN PLATELET VOLUME 9.2 FL (7.4-10.4); MONOCYTES # (AUTO) 0.9 X10'3 (0-0.9); MONOCYTES % (AUTO) 6.4 % (2-12); NEUTROPHILS # (AUTO) 11.4 X10'3 (1.8-7.7); NEUTROPHILS % (AUTO) 82.5 % (42-75); PLATELET COUNT 143 X10'3 (140-440); RED BLOOD COUNT 2.98 X10'6 (4.70-6.10); RED CELL DISTRIBUTION WIDTH 18.9 % (11.5-14.5); WHITE BLOOD COUNT 13.9 X10'3 (4.5-11.0)
--- NOTE | 2018-09-19 06:21 | NUR ---
Problems reprioritized. Patient report given, questions answered & plan of care reviewed with Jose MAYEN.
[2018-09-19 06:22] LABS: ALANINE AMINOTRANSFERASE 24 U/L (12-78); ALBUMIN 2.3 G/DL (3.4-5.0); ALBUMIN/GLOBULIN RATIO 0.5 (1.1-1.5); ALKALINE PHOSPHATASE 134 IU/L (46-116); ANION GAP 7 (8-16); ASPARTATE AMINO TRANSFERASE 18 U/L (10-37); BILIRUBIN,TOTAL 0.4 MG/DL (0.1-1.0); BLOOD UREA NITROGEN 34 MG/DL (7-18); BUN/CREATININE RATIO 28.8 (5.4-32.0); CALCIUM 8.2 MG/DL (8.5-10.1); CHLORIDE 103 MMOL/L (99-107); CREATININE 1.18 MG/DL (0.60-1.10); GLUCOSE 182 MG/DL (70-104); MAGNESIUM 2.4 MG/DL (1.5-2.4); PHOSPHORUS 2.3 MG/DL (2.3-4.5); POTASSIUM 4.4 MMOL/L (3.5-5.1); SODIUM 137 MMOL/L (135-145); TOTAL CARBON DIOXIDE 27.3 MMOL/L (24-32); TOTAL PROTEIN 6.9 G/DL (6.4-8.2); eGFR 64 ML/MIN
[2018-09-19] MEDS: methylnaltrexone br 12mg/0.6ml inj***SubQ only SQ SCH (06:46)
[2018-09-19] MEDS: lactobacillus rhamnosus 10,000 MMU CELLS/CAPSULE PO SCH ×2 (07:33→20:19)
[2018-09-19] MEDS: pantoprazole 40 MG vial IV SCH (07:33)
[2018-09-19] MEDS: docusate sodium 100mg/10ml UD cup PO SCH ×2 (07:33→20:19)
[2018-09-19 07:51] LABS: ANISOCYTOSIS 2+; LARGE PLATELETS FEW; PLATELET ESTIMATE NORMAL; POIKILOCYTOSIS FEW
[2018-09-19] MEDS ORDERED: methylnaltrexone br 12mg/0.6ml inj***SubQ only SQ SCH (08:00)
[2018-09-19] MEDS: linezolid 600mg/300ml PREMIX 300 ML IV SCH ×2 (08:59→20:20)
[2018-09-19 11:46] LABS: BASOPHILS % (AUTO) 0.1 % (0-1); EOSINOPHILS # (AUTO) 0.1 X10'3 (0-0.9); EOSINOPHILS % (AUTO) 0.7 % (0-6); HEMATOCRIT 25.3 % (42.0-52.0); HEMOGLOBIN 8.2 g/dl (14.0-17.9); LYMPHOCYTES # (AUTO) 1.6 X10'3 (1.1-4.8); LYMPHOCYTES % (AUTO) 12.4 % (21-51); MEAN CORPUSCULAR HEMOGLOBIN 27.8 PG (27.0-31.0); MEAN CORPUSCULAR HGB CONC 32.3 g/dL (33.0-36.5); MEAN CORPUSCULAR VOLUME 86.1 FL (78-98); MONOCYTES # (AUTO) 0.7 X10'3 (0-0.9); MONOCYTES % (AUTO) 5.5 % (2-12); NEUTROPHILS # (AUTO) 10.3 X10'3 (1.8-7.7); NEUTROPHILS % (AUTO) 81.3 % (42-75); PLATELET COUNT 139 X10'3 (140-440); RED BLOOD COUNT 2.94 X10'6 (4.70-6.10); RED CELL DISTRIBUTION WIDTH 18.4 % (11.5-14.5); WHITE BLOOD COUNT 12.7 X10'3 (4.5-11.0)
--- NOTE | 2018-09-19 11:46 | NUR ---
PICC line While performing a dressing change the PICC line was displaced 4cm back from original insertion placement. Dr. Freitas notified and a X-ray was ordered that showed the PICC was still able to be used per Dr. Freitas.
[2018-09-19 11:54] LABS: ALBUMIN 2.3 G/DL (3.4-5.0); ANION GAP 7 (8-16); BLOOD UREA NITROGEN 36 MG/DL (7-18); BUN/CREATININE RATIO 31.9 (5.4-32.0); CHLORIDE 103 MMOL/L (99-107); CREATININE 1.13 MG/DL (0.60-1.10); GLUCOSE 195 MG/DL (70-104); MAGNESIUM 2.1 MG/DL (1.5-2.4); PHOSPHORUS 2.1 MG/DL (2.3-4.5); POTASSIUM 4.3 MMOL/L (3.5-5.1); SODIUM 137 MMOL/L (135-145); TOTAL CARBON DIOXIDE 27.3 MMOL/L (24-32); eGFR 68 ML/MIN
[2018-09-19] MEDS: heparin 25,000 UNIT/250ml bag 250 ML IV SCH (13:03)
[2018-09-19 17:19] LABS: BASOPHILS % (AUTO) 0.1 % (0-1); EOSINOPHILS # (AUTO) 0.1 X10'3 (0-0.9); EOSINOPHILS % (AUTO) 0.7 % (0-6); HEMATOCRIT 25.2 % (42.0-52.0); HEMOGLOBIN 8.1 g/dl (14.0-17.9); LYMPHOCYTES # (AUTO) 1.6 X10'3 (1.1-4.8); LYMPHOCYTES % (AUTO) 11.4 % (21-51); MEAN CORPUSCULAR HEMOGLOBIN 27.7 PG (27.0-31.0); MEAN CORPUSCULAR VOLUME 86.5 FL (78-98); MEAN PLATELET VOLUME 8.7 FL (7.4-10.4); MONOCYTES % (AUTO) 7.1 % (2-12); NEUTROPHILS # (AUTO) 11.1 X10'3 (1.8-7.7); NEUTROPHILS % (AUTO) 80.7 % (42-75); PLATELET COUNT 125 X10'3 (140-440); RED BLOOD COUNT 2.91 X10'6 (4.70-6.10); RED CELL DISTRIBUTION WIDTH 18.8 % (11.5-14.5); WHITE BLOOD COUNT 13.8 X10'3 (4.5-11.0)
[2018-09-19 17:29] LABS: ALBUMIN 2.3 G/DL (3.4-5.0); ANION GAP 7 (8-16); BLOOD UREA NITROGEN 36 MG/DL (7-18); BUN/CREATININE RATIO 32.4 (5.4-32.0); CHLORIDE 104 MMOL/L (99-107); CREATININE 1.11 MG/DL (0.60-1.10); GLUCOSE 169 MG/DL (70-104); PHOSPHORUS 2.2 MG/DL (2.3-4.5); POTASSIUM 4.4 MMOL/L (3.5-5.1); SODIUM 139 MMOL/L (135-145); TOTAL CARBON DIOXIDE 28.1 MMOL/L (24-32); eGFR 69 ML/MIN
--- NOTE | 2018-09-19 18:30 | NUR ---
Patient in room ICU 2041. I have received report from Jose/Arturo MAYEN and had the opportunity to ask questions and assume patient care.
[2018-09-19] MEDS: atorvastatin 20mg tablet PO SCH (20:19)
[2018-09-19] MEDS: insulin glargine (Lantus) pen - multi-dose SQ SCH (20:25)
--- NOTE | 2018-09-19 21:16 | NUR ---
With sedation off pt moving arms more. Shook his head no to pain and was able to hold his eyes closed when asked to. Was unable to wiggle his toes or chartered wealth manager my hand to command. He does not attempt to mouth words. When awake his eyes do not to track or focus. Unsure of name pronunciation but he does not seem to try to make eye contact when name said or when speaking to him. Versed restarted at low dose for pt comfort as he remains in rotorest bed, continuous turn therapy.
[2018-09-19] MEDS: CADD PCA waste documentation MC SCH (21:54)
[2018-09-19 23:55] LABS: ALBUMIN 2.3 G/DL (3.4-5.0); ANION GAP 11 (8-16); BLOOD UREA NITROGEN 35 MG/DL (7-18); BUN/CREATININE RATIO 32.1 (5.4-32.0); CHLORIDE 101 MMOL/L (99-107); CREATININE 1.09 MG/DL (0.60-1.10); GLUCOSE 218 MG/DL (70-104); MAGNESIUM 1.9 MG/DL (1.5-2.4); PHOSPHORUS 2.5 MG/DL (2.3-4.5); POTASSIUM 4.6 MMOL/L (3.5-5.1); SODIUM 138 MMOL/L (135-145); TOTAL CARBON DIOXIDE 26.4 MMOL/L (24-32); eGFR 70 ML/MIN
[2018-09-20] VITALS (25 sets, daily range): BP systolic 79–162; BP diastolic 41–79
[2018-09-20] LABS: BASOPHILS % (AUTO) 0.1 % (0-1); EOSINOPHILS # (AUTO) 0.1 X10'3 (0-0.9); EOSINOPHILS % (AUTO) 0.6 % (0-6); HEMATOCRIT 25.5 % (42.0-52.0); HEMOGLOBIN 8.2 g/dl (14.0-17.9); LYMPHOCYTES # (AUTO) 1.6 X10'3 (1.1-4.8); LYMPHOCYTES % (AUTO) 10.3 % (21-51); MEAN CORPUSCULAR HEMOGLOBIN 27.9 PG (27.0-31.0); MEAN CORPUSCULAR HGB CONC 32.3 g/dL (33.0-36.5); MEAN CORPUSCULAR VOLUME 86.3 FL (78-98); MEAN PLATELET VOLUME 9.3 FL (7.4-10.4); MONOCYTES # (AUTO) 0.8 X10'3 (0-0.9); MONOCYTES % (AUTO) 5.2 % (2-12); NEUTROPHILS # (AUTO) 13.2 X10'3 (1.8-7.7); NEUTROPHILS % (AUTO) 83.8 % (42-75); PLATELET COUNT 139 X10'3 (140-440); RED BLOOD COUNT 2.95 X10'6 (4.70-6.10); RED CELL DISTRIBUTION WIDTH 19.1 % (11.5-14.5); WHITE BLOOD COUNT 15.7 X10'3 (4.5-11.0)
[2018-09-20] MEDS: HYDROmorphone/NS 1 mg/ml CADD 50 ML IV SCH ×7 (00:54→13:00)
[2018-09-20] MEDS: methylPREDNISolone sod succ/PF 40mg inj. IV SCH ×2 (02:10→07:01)
[2018-09-20] MEDS: mineral oil/petrolatum ophthal oint EACHEYE SCH ×4 (02:11→19:54)
[2018-09-20] MEDS: insulin regular, human vial - multi-dose SQ SCH ×4 (02:13→20:09)
[2018-09-20] MEDS: Duosol 4K/3 Ca (w/calcium) 5,000 ML HE SCH ×3 (03:09→08:46)
--- NOTE | 2018-09-20 03:47 | NUR ---
CVVH filter clotted off and machine went down suddenly, unable to return blood to pt. Emily RN set up new filter and CVVH restarted at 0340. Pt's BP dropped with restart. Decreased UF rate to keep even. Versed turned off. 150ml fluid bolus. Pt BP slowly improving.
--- NOTE | 2018-09-20 04:38 | NUR ---
Pt BP back to his normal trend. Versed restarted for pt comfort.
[2018-09-20 04:56] LABS: ABG BASE EXCESS 2.3 mmol/L (-2.0-3.0); ABG HCO3 26.4 mmol/L (22.0-26.0); ABG OXYGEN SATURATION 95.4 % (95-98); ABG PH (T) 7.466 (7.350-7.450); ABG PO2 (T) 72.1 mmHg (83-108); FCOHb 0.6 % (0.5-1.5); FMetHb 0.1 % (0.3-1.12); FO2Hb 94.7 % (94-100); MINUTE VOLUME 13 L/min; PEEP 8 cm H2O; RESPIRATORY RATE 22 b/min; RESPIRATORY RATE (OBSERVED) 22 b/min; TOTAL HEMOGLOBIN 8.4 G/dl (14.0-18.0)
[2018-09-20 06:08] LABS: BASOPHILS % (AUTO) 0.1 % (0-1); EOSINOPHILS # (AUTO) 0.1 X10'3 (0-0.9); EOSINOPHILS % (AUTO) 0.6 % (0-6); HEMATOCRIT 23.8 % (42.0-52.0); HEMOGLOBIN 7.7 g/dl (14.0-17.9); LYMPHOCYTES # (AUTO) 1.7 X10'3 (1.1-4.8); LYMPHOCYTES % (AUTO) 9.6 % (21-51); MEAN CORPUSCULAR HEMOGLOBIN 27.9 PG (27.0-31.0); MEAN CORPUSCULAR HGB CONC 32.4 g/dL (33.0-36.5); MEAN CORPUSCULAR VOLUME 86.1 FL (78-98); MEAN PLATELET VOLUME 9.5 FL (7.4-10.4); MONOCYTES # (AUTO) 1.5 X10'3 (0-0.9); MONOCYTES % (AUTO) 8.4 % (2-12); NEUTROPHILS # (AUTO) 14.6 X10'3 (1.8-7.7); NEUTROPHILS % (AUTO) 81.3 % (42-75); PLATELET COUNT 134 X10'3 (140-440); RED BLOOD COUNT 2.76 X10'6 (4.70-6.10); RED CELL DISTRIBUTION WIDTH 19.5 % (11.5-14.5)
--- NOTE | 2018-09-20 06:17 | NUR ---
Problems reprioritized. Patient report given, questions answered & plan of care reviewed with Jose MAYEN.
[2018-09-20 06:23] LABS: ALANINE AMINOTRANSFERASE 21 U/L (12-78); ALBUMIN 2.2 G/DL (3.4-5.0); ALBUMIN/GLOBULIN RATIO 0.5 (1.1-1.5); ALKALINE PHOSPHATASE 116 IU/L (46-116); ANION GAP 7 (8-16); ASPARTATE AMINO TRANSFERASE 14 U/L (10-37); BILIRUBIN,TOTAL 0.3 MG/DL (0.1-1.0); BLOOD UREA NITROGEN 40 MG/DL (7-18); BUN/CREATININE RATIO 33.1 (5.4-32.0); CALCIUM 7.7 MG/DL (8.5-10.1); CHLORIDE 104 MMOL/L (99-107); CREATININE 1.21 MG/DL (0.60-1.10); GLUCOSE 194 MG/DL (70-104); MAGNESIUM 1.8 MG/DL (1.5-2.4); PHOSPHORUS 2.4 MG/DL (2.3-4.5); POTASSIUM 4.5 MMOL/L (3.5-5.1); PREALBUMIN 22.7 MG/DL (19-36); SODIUM 138 MMOL/L (135-145); TOTAL CARBON DIOXIDE 26.6 MMOL/L (24-32); TOTAL PROTEIN 6.3 G/DL (6.4-8.2); eGFR 62 ML/MIN
--- NOTE | 2018-09-20 06:30 | NUR ---
Patient in room ICU 2041. I have received report from FAHEEM Correa and had the opportunity to ask questions and assume patient care.
[2018-09-20 06:50] LABS: ANISOCYTOSIS 2+; HYPOCHROMASIA 1+; PLATELET ESTIMATE DECREASED; TOTAL CELLS COUNTED 100
[2018-09-20] MEDS: docusate sodium 100mg/10ml UD cup PO SCH ×2 (06:54→19:54)
[2018-09-20] MEDS: piperacillin/tazo 3.375gm/50ml 50 ML IV SCH (07:00)
[2018-09-20] MEDS: lactobacillus rhamnosus 10,000 MMU CELLS/CAPSULE PO SCH ×2 (07:01→19:52)
[2018-09-20] MEDS: pantoprazole 40 MG vial IV SCH (07:01)
[2018-09-20 07:47] LABS: ANISOCYTOSIS 2+; PLATELET ESTIMATE DECREASED; TOTAL CELLS COUNTED 100
[2018-09-20] MEDS: linezolid 600mg/300ml PREMIX 300 ML IV SCH ×2 (08:00→21:38)
--- NOTE | 2018-09-20 11:20 | NUR ---
CPAP vent setting Versed placed on Hold and CPAP setting attempted by respiratory. Patient has tolerated change well.
[2018-09-20] MEDS: heparin 25,000 UNIT/250ml bag 250 ML IV SCH (11:45)
--- NOTE | 2018-09-20 11:50 | NUR ---
D/C Art line and Overton D/C Art line held pressure at site for approx 5 mins dressed site with sterile gauze and Tegaderm dressing. Patient tolerated procedure well. D/C overton per doctors order patient handled procedure well.
[2018-09-20 11:57] LABS: ALBUMIN 2.1 G/DL (3.4-5.0); ANION GAP 8 (8-16); BASOPHILS % (AUTO) 0.2 % (0-1); BLOOD UREA NITROGEN 39 MG/DL (7-18); BUN/CREATININE RATIO 36.1 (5.4-32.0); CALCIUM 7.6 MG/DL (8.5-10.1); CHLORIDE 104 MMOL/L (99-107); CREATININE 1.08 MG/DL (0.60-1.10); EOSINOPHILS # (AUTO) 0.1 X10'3 (0-0.9); EOSINOPHILS % (AUTO) 0.7 % (0-6); GLUCOSE 173 MG/DL (70-104); HEMATOCRIT 22.7 % (42.0-52.0); HEMOGLOBIN 7.2 g/dl (14.0-17.9); LYMPHOCYTES # (AUTO) 2.2 X10'3 (1.1-4.8); LYMPHOCYTES % (AUTO) 11.9 % (21-51); MAGNESIUM 1.7 MG/DL (1.5-2.4); MEAN CORPUSCULAR HEMOGLOBIN 27.8 PG (27.0-31.0); MEAN CORPUSCULAR VOLUME 86.9 FL (78-98); MEAN PLATELET VOLUME 9.5 FL (7.4-10.4); MONOCYTES # (AUTO) 1.1 X10'3 (0-0.9); MONOCYTES % (AUTO) 5.8 % (2-12); NEUTROPHILS # (AUTO) 14.9 X10'3 (1.8-7.7); NEUTROPHILS % (AUTO) 81.4 % (42-75); PHOSPHORUS 2.5 MG/DL (2.3-4.5); PLATELET COUNT 137 X10'3 (140-440); POTASSIUM 4.2 MMOL/L (3.5-5.1); RED BLOOD COUNT 2.61 X10'6 (4.70-6.10); RED CELL DISTRIBUTION WIDTH 19.9 % (11.5-14.5); SODIUM 139 MMOL/L (135-145); TOTAL CARBON DIOXIDE 26.6 MMOL/L (24-32); WHITE BLOOD COUNT 18.3 X10'3 (4.5-11.0); eGFR 71 ML/MIN
[2018-09-20] MEDS ORDERED: HYDROmorphone 2mg/ml vial IV PRN ×2 (13:55)
[2018-09-20] MEDS ORDERED: HYDROmorphone 1 mg/ml syringe IV PRN (14:02)
[2018-09-20] MEDS ORDERED: HYDROmorphone inj. 0.5 MG/0.5 ML DISP.SYRIN IV PRN (14:02)
--- NOTE | 2018-09-20 14:55 | NUR ---
PICC line discontinued
[2018-09-20] MEDS ORDERED: heparin 1,000 units/ml 10ml inj HE ONE ×2 (15:25)
--- NOTE | 2018-09-20 18:21 | NUR ---
Problems reprioritized. Patient report given, questions answered & plan of care reviewed with FAHEEM Ocampo.
--- NOTE | 2018-09-20 18:30 | NUR ---
Patient in room ICU 2041. I have received report from Jg MAYEN, and had the opportunity to ask questions and assume patient care.
--- NOTE | 2018-09-20 19:30 | NUR ---
PT is resting with no s/s of distress noted at this time. VSS. PT has trach and is mechanically vented, tolerating settings well, O2 sat >94%. PT has TF running to PEG, tolerating well at goal rate. Bed is locked and low. Call light within reach. Will continue to monitor.
[2018-09-20] MEDS: methylPREDNISolone sod succ 125mg/2ml vial IV SCH (19:52)
[2018-09-20] MEDS: heparin, porcine 5000 units/ml vial SQ SCH (19:53)
[2018-09-20] MEDS: HYDROcodone/acetaminophen 10/325mg tab PO PRN (19:55)
[2018-09-20] MEDS: insulin glargine (Lantus) pen - multi-dose SQ SCH (20:10)
[2018-09-20] MEDS: atorvastatin 20mg tablet PO SCH (22:55)
[2018-09-20] MEDS: midazolam 100mg in NS 100ml 100 ML IV PRN (22:59)
[2018-09-21] VITALS (31 sets, daily range): BP systolic 92–156; BP diastolic 52–76
--- NOTE | 2018-09-21 | NUR ---
PT resting with no s/s of distress noted at this time. VSS. Bed is locked and low. Call light is within reach. Will continue to monitor.
[2018-09-21] MEDS: HYDROcodone/acetaminophen 10/325mg tab PO PRN ×2 (00:29→12:12)
[2018-09-21] MEDS: mineral oil/petrolatum ophthal oint EACHEYE SCH ×4 (02:00→19:58)
[2018-09-21] MEDS: insulin regular, human vial - multi-dose SQ SCH ×4 (02:28→20:18)
[2018-09-21 03:03] LABS: BASOPHILS % (AUTO) 0.1 % (0-1); EOSINOPHILS # (AUTO) 0.1 X10'3 (0-0.9); EOSINOPHILS % (AUTO) 0.3 % (0-6); LYMPHOCYTES # (AUTO) 2.2 X10'3 (1.1-4.8); LYMPHOCYTES % (AUTO) 11.6 % (21-51); MEAN CORPUSCULAR HEMOGLOBIN 28.1 PG (27.0-31.0); MEAN CORPUSCULAR HGB CONC 31.8 g/dL (33.0-36.5); MEAN CORPUSCULAR VOLUME 88.1 FL (78-98); MEAN PLATELET VOLUME 8.9 FL (7.4-10.4); MONOCYTES # (AUTO) 1.4 X10'3 (0-0.9); MONOCYTES % (AUTO) 7.5 % (2-12); NEUTROPHILS # (AUTO) 15.2 X10'3 (1.8-7.7); NEUTROPHILS % (AUTO) 80.5 % (42-75); PLATELET COUNT 170 X10'3 (140-440); RED BLOOD COUNT 2.11 X10'6 (4.70-6.10); RED CELL DISTRIBUTION WIDTH 20.2 % (11.5-14.5); WHITE BLOOD COUNT 18.9 X10'3 (4.5-11.0)
[2018-09-21 03:15] LABS: ALANINE AMINOTRANSFERASE 22 U/L (12-78); ALBUMIN 2.1 G/DL (3.4-5.0); ALBUMIN/GLOBULIN RATIO 0.6 (1.1-1.5); ALKALINE PHOSPHATASE 95 IU/L (46-116); ANION GAP 7 (8-16); ASPARTATE AMINO TRANSFERASE 18 U/L (10-37); BILIRUBIN,TOTAL 0.3 MG/DL (0.1-1.0); BLOOD UREA NITROGEN 60 MG/DL (7-18); BUN/CREATININE RATIO 33.1 (5.4-32.0); CALCIUM 7.3 MG/DL (8.5-10.1); CHLORIDE 104 MMOL/L (99-107); CREATININE 1.81 MG/DL (0.60-1.10); GLUCOSE 126 MG/DL (70-104); MAGNESIUM 1.6 MG/DL (1.5-2.4); PHOSPHORUS 2.6 MG/DL (2.3-4.5); POTASSIUM 4.8 MMOL/L (3.5-5.1); SODIUM 138 MMOL/L (135-145); TOTAL CARBON DIOXIDE 26.8 MMOL/L (24-32); TOTAL PROTEIN 5.6 G/DL (6.4-8.2); eGFR 39 ML/MIN
[2018-09-21 03:20] LABS: HEMATOCRIT 18.6 % (42.0-52.0); HEMOGLOBIN 5.9 g/dl (14.0-17.9)
[2018-09-21 03:54] LABS: BASOPHILS % (AUTO) 0.2 % (0-1); EOSINOPHILS # (AUTO) 0.1 X10'3 (0-0.9); EOSINOPHILS % (AUTO) 0.3 % (0-6); LYMPHOCYTES # (AUTO) 2.2 X10'3 (1.1-4.8); LYMPHOCYTES % (AUTO) 12.4 % (21-51); MEAN CORPUSCULAR HGB CONC 32.2 g/dL (33.0-36.5); MEAN CORPUSCULAR VOLUME 87.2 FL (78-98); MEAN PLATELET VOLUME 8.8 FL (7.4-10.4); MONOCYTES # (AUTO) 1.1 X10'3 (0-0.9); MONOCYTES % (AUTO) 6.3 % (2-12); NEUTROPHILS # (AUTO) 14.1 X10'3 (1.8-7.7); NEUTROPHILS % (AUTO) 80.8 % (42-75); PLATELET COUNT 166 X10'3 (140-440); RED BLOOD COUNT 2.15 X10'6 (4.70-6.10); RED CELL DISTRIBUTION WIDTH 20.4 % (11.5-14.5); WHITE BLOOD COUNT 17.5 X10'3 (4.5-11.0)
[2018-09-21 03:59] LABS: HEMATOCRIT 18.8 % (42.0-52.0)
[2018-09-21 04:06] LABS: ACANTHOCYTES FEW; ANISOCYTOSIS 3+; ELLIPTOCYTES FEW; PLATELET ESTIMATE NORMAL; POLYCHROMASIA FEW; TOTAL CELLS COUNTED 100
[2018-09-21 04:10] LABS: ABG BASE EXCESS 1.9 mmol/L (-2.0-3.0); ABG HCO3 24.8 mmol/L (22.0-26.0); ABG OXYGEN SATURATION 94.3 % (95-98); ABG PCO2 (T) 31.6 mmHg (35.0-48.0); ABG PH (T) 7.515 (7.350-7.450); FCOHb 0.2 % (0.5-1.5); FMetHb 0.2 % (0.3-1.12); FO2Hb 93.9 % (94-100); PATIENT TEMPERATURE 37.6; PEEP 5 cm H2O; RESPIRATORY RATE 22 b/min; RESPIRATORY RATE (OBSERVED) 32 b/min; TOTAL HEMOGLOBIN 6.5 G/dl (14.0-18.0)
--- NOTE | 2018-09-21 04:30 | NUR ---
Received critical H&H. HUSSAIN Reyes notified. Order received to get a type and screen and cross match 2 units PRBC's. Pt's VSS. Will continue to monitor.
--- NOTE | 2018-09-21 06:23 | NUR ---
Problems reprioritized. Patient report given, questions answered & plan of care reviewed with Jg MAYEN.
--- NOTE | 2018-09-21 06:30 | NUR ---
Patient in room ICU 2041. I have received report from FAHEEM Ocampo and had the opportunity to ask questions and assume patient care.
[2018-09-21] MEDS: methylnaltrexone br 12mg/0.6ml inj***SubQ only SQ SCH (06:41)
[2018-09-21] MEDS: docusate sodium 100mg/10ml UD cup PO SCH ×2 (06:41→19:59)
[2018-09-21] MEDS: methylPREDNISolone sod succ 125mg/2ml vial IV SCH (07:12)
[2018-09-21] MEDS: pantoprazole 40 MG vial IV SCH (07:12)
[2018-09-21] MEDS: lactobacillus rhamnosus 10,000 MMU CELLS/CAPSULE PO SCH ×2 (07:12→19:58)
[2018-09-21] MEDS: heparin, porcine 5000 units/ml vial SQ SCH ×2 (07:14→19:59)
[2018-09-21] MEDS: linezolid 600mg/300ml PREMIX 300 ML IV SCH ×2 (09:28→21:22)
[2018-09-21 10:38] LABS: MEAN CORPUSCULAR HGB CONC 31.9 g/dL (33.0-36.5); MEAN PLATELET VOLUME 8.5 FL (7.4-10.4); PLATELET COUNT 162 X10'3 (140-440); RED BLOOD COUNT 2.39 X10'6 (4.70-6.10); RED CELL DISTRIBUTION WIDTH 18.3 % (11.5-14.5); WHITE BLOOD COUNT 16.9 X10'3 (4.5-11.0)
[2018-09-21 10:45] LABS: HEMOGLOBIN 6.7 g/dl (14.0-17.9)
--- NOTE | 2018-09-21 11:00 | NUR ---
Removing sridevi During rounds Dr. Freitas wanted us to pull every other staple from the wound. Once the patient was turned I noticed that the bottom part of the wound was not as well approximated as days prior. After removing 9 sridevi on the upper half of the wound Dr. Freitas had me remove 8 more sridevi for a totoal Addendum: 09/21/18 at 1158 by Theo Ferguson RN total of 17 sridevi. Island dressing secured patient tolerated procedure well.
--- NOTE | 2018-09-21 15:33 | NUR ---
Reassessment: Pt off roto-rest and CVVH. Remains intubated. He is tolerating TF at goal with low gastric residual volume. Pt now has rectal tube d/t copious amounts of stool. Pt stopped receiving colace on 09/19 and was receiving antibiotics, which may associated with diarrhea. Will continue to follow. Recommend: 1. Continuous tube feedings using Vital High Protein at goal rate of 85 ml/hr will provide total volume of 2040 ml, 2040 cals, 179 gm protein, and 1705 ml water. 2. Any additional water flush per MD 3. Prealbumin q / 4. Monitor need for additional bowel care- hold bowel care with diarrhea 5. Daily wt Addendum: 09/21/18 at [address] Amended: Links added.
--- NOTE | 2018-09-21 17:16 | NUR ---
Pt vomited past trach. Approximately 200 mL tube feed colored emesis. Trach suctioning clear sputum. Unable to aspirate additional gastric residual. Lung sounds clear to auscultation, tidal volumes in 500 mL range, SpO2 98% on 40% FIO2. Obtained CXR and requested RT to assess trach and cuff. Tube feed restarted.
[2018-09-21 17:29] LABS: HEMATOCRIT 24.2 % (42.0-52.0); HEMOGLOBIN 7.8 g/dl (14.0-17.9); MEAN CORPUSCULAR HGB CONC 32.2 g/dL (33.0-36.5); MEAN CORPUSCULAR VOLUME 87.1 FL (78-98); MEAN PLATELET VOLUME 8.6 FL (7.4-10.4); PLATELET COUNT 180 X10'3 (140-440); RED BLOOD COUNT 2.78 X10'6 (4.70-6.10); RED CELL DISTRIBUTION WIDTH 18.5 % (11.5-14.5); WHITE BLOOD COUNT 21.3 X10'3 (4.5-11.0)
--- NOTE | 2018-09-21 18:33 | NUR ---
Patient in room ICU 2041. I have received report from Liang RN's, and had the opportunity to ask questions and assume patient care.
--- NOTE | 2018-09-21 19:15 | NUR ---
PT is resting with no s/s of distress noted at this time. VSS. PT has trach and is mechanically vented, tolerating settings well, O2 sat >96%. PT is more awake and alert than previous noc shift. PT nodding head yes/no more clearing and responding faster to questions. PT has TF running to PEG, tolerating well at goal rate, denies and nausea. Rectal tube in place, free from kinks and twists, draining to gravity. Bed is locked and low. Call light within reach. Will continue to monitor.
[2018-09-21] MEDS: methylPREDNISolone sod succ/PF 40mg inj. IV SCH (19:58)
[2018-09-21] MEDS: famotidine/PF 10 mg/ml inj IV SCH (19:58)
[2018-09-21] MEDS: insulin glargine (Lantus) pen - multi-dose SQ SCH (20:19)
[2018-09-21] MEDS: atorvastatin 20mg tablet PO SCH (21:23)
--- NOTE | 2018-09-21 22:00 | NUR ---
PT is resting with no s/s of distress noted at this time. VSS. Bed is locked and low. Will continue to monitor.
[2018-09-22] VITALS (27 sets, daily range): BP systolic 108–146; BP diastolic 55–76
[2018-09-22] MEDS: mineral oil/petrolatum ophthal oint EACHEYE SCH ×4 (02:38→20:00)
[2018-09-22] MEDS: insulin regular, human vial - multi-dose SQ SCH ×4 (02:41→21:07)
[2018-09-22 03:12] LABS: BASOPHILS % (AUTO) 0 % (0-1); EOSINOPHILS # (AUTO) 0.1 X10'3 (0-0.9); EOSINOPHILS % (AUTO) 0.4 % (0-6); LYMPHOCYTES # (AUTO) 1.7 X10'3 (1.1-4.8); LYMPHOCYTES % (AUTO) 11.1 % (21-51); MEAN CORPUSCULAR HEMOGLOBIN 28.1 PG (27.0-31.0); MEAN CORPUSCULAR HGB CONC 32.1 g/dL (33.0-36.5); MEAN CORPUSCULAR VOLUME 87.3 FL (78-98); MEAN PLATELET VOLUME 8.4 FL (7.4-10.4); MONOCYTES # (AUTO) 0.8 X10'3 (0-0.9); MONOCYTES % (AUTO) 5.6 % (2-12); NEUTROPHILS # (AUTO) 12.4 X10'3 (1.8-7.7); NEUTROPHILS % (AUTO) 82.9 % (42-75); PLATELET COUNT 154 X10'3 (140-440); RED BLOOD COUNT 2.41 X10'6 (4.70-6.10); RED CELL DISTRIBUTION WIDTH 18.6 % (11.5-14.5); WHITE BLOOD COUNT 14.9 X10'3 (4.5-11.0)
[2018-09-22 03:24] LABS: ALANINE AMINOTRANSFERASE 30 U/L (12-78); ALBUMIN 2.2 G/DL (3.4-5.0); ALBUMIN/GLOBULIN RATIO 0.6 (1.1-1.5); ALKALINE PHOSPHATASE 88 IU/L (46-116); ANION GAP 11 (8-16); ASPARTATE AMINO TRANSFERASE 29 U/L (10-37); BILIRUBIN,TOTAL 0.3 MG/DL (0.1-1.0); BLOOD UREA NITROGEN 101 MG/DL (7-18); BUN/CREATININE RATIO 35.6 (5.4-32.0); CHLORIDE 102 MMOL/L (99-107); CREATININE 2.84 MG/DL (0.60-1.10); GLUCOSE 145 MG/DL (70-104); MAGNESIUM 1.7 MG/DL (1.5-2.4); PHOSPHORUS 4.1 MG/DL (2.3-4.5); SODIUM 136 MMOL/L (135-145); TOTAL CARBON DIOXIDE 23.4 MMOL/L (24-32); TOTAL PROTEIN 5.7 G/DL (6.4-8.2); eGFR 23 ML/MIN
[2018-09-22 03:27] LABS: HEMOGLOBIN 6.8 g/dl (14.0-17.9)
--- NOTE | 2018-09-22 04:00 | NUR ---
Received critical H&H, HUSSAIN Reyes notified. Order received to crossmatch 1unit PRBC to be transfused with dialysis today. PT is asymptomatic, VSS. Will continue to monitor.
[2018-09-22 04:13] LABS: PLATELET ESTIMATE NORMAL
[2018-09-22 04:14] LABS: ANISOCYTOSIS 2+; POIKILOCYTOSIS FEW; POLYCHROMASIA FEW
[2018-09-22 04:16] LABS: ABG BASE EXCESS -1.9 mmol/L (-2.0-3.0); ABG HCO3 20.7 mmol/L (22.0-26.0); ABG OXYGEN SATURATION 97.9 % (95-98); ABG PCO2 (T) 27.1 mmHg (35.0-48.0); ABG PH (T) 7.502 (7.350-7.450); ABG PO2 (T) 118.2 mmHg (83-108); FCOHb 0.3 % (0.5-1.5); FMetHb 0.4 % (0.3-1.12); FO2Hb 97.2 % (94-100); MINUTE VOLUME 16 L/min; PATIENT TEMPERATURE 37.4; PEEP 5 cm H2O; RESPIRATORY RATE (OBSERVED) 29 b/min; TIDAL VOLUME 477 mL; TOTAL HEMOGLOBIN 7.6 G/dl (14.0-18.0)
[2018-09-22 04:27] LABS: TOTAL CELLS COUNTED 100
--- NOTE | 2018-09-22 06:29 | NUR ---
Problems reprioritized. Patient report given, questions answered & plan of care reviewed with Preston MAYEN.
[2018-09-22] MEDS: docusate sodium 100mg/10ml UD cup PO SCH ×2 (07:15→20:00)
[2018-09-22] MEDS: methylPREDNISolone sod succ/PF 40mg inj. IV SCH (07:38)
[2018-09-22] MEDS: heparin, porcine 5000 units/ml vial SQ SCH ×2 (07:39→20:02)
[2018-09-22] MEDS: lactobacillus rhamnosus 10,000 MMU CELLS/CAPSULE PO SCH ×2 (07:39→20:01)
[2018-09-22] MEDS: famotidine/PF 10 mg/ml inj IV SCH ×2 (07:39→20:01)
[2018-09-22] MEDS: linezolid 600mg/300ml PREMIX 300 ML IV SCH ×2 (07:57→21:08)
[2018-09-22] MEDS ORDERED: heparin 1,000unit/ml 10ml vial 10 ML IV ONE (08:00)
[2018-09-22] MEDS ORDERED: epoetin 20,000 units/ml inj IV ONE (08:00)
[2018-09-22] MEDS ORDERED: normal saline 1000ml 250 ML IV PRN (08:00)
[2018-09-22 08:29] LABS: HBSAG SCREEN Negative (Negative)
[2018-09-22] MEDS: heparin 1,000 units/ml 10ml inj HE ONE ×4 (12:08→13:22)
[2018-09-22 14:29] LABS: HEMOGLOBIN 8.4 g/dl (14.0-17.9); MEAN CORPUSCULAR HEMOGLOBIN 28.7 PG (27.0-31.0); MEAN CORPUSCULAR HGB CONC 32.5 g/dL (33.0-36.5); MEAN CORPUSCULAR VOLUME 88.4 FL (78-98); MEAN PLATELET VOLUME 8.3 FL (7.4-10.4); PLATELET COUNT 172 X10'3 (140-440); RED BLOOD COUNT 2.94 X10'6 (4.70-6.10); RED CELL DISTRIBUTION WIDTH 18.2 % (11.5-14.5); WHITE BLOOD COUNT 20.4 X10'3 (4.5-11.0)
--- NOTE | 2018-09-22 18:16 | NUR ---
Problems reprioritized. Patient report given, questions answered & plan of care reviewed with Terrence MAYEN.
--- NOTE | 2018-09-22 18:21 | NUR ---
Patient in room ICU 2041. I have received report from Preston MAYEN, and had the opportunity to ask questions and assume patient care.
--- NOTE | 2018-09-22 19:30 | NUR ---
PT is resting with no s/s of distress noted at this time. VSS. PT has trach and on T-Mist @ 45%, tolerating well, O2 sat >94%. PT is more awake and alert, nodding head yes/no. PT has TF running to PEG, tolerating well at goal rate, denies and nausea. Rectal tube in place, free from kinks and twists, draining to gravity. Bed is locked and low. Call light within reach. Will continue to monitor.
[2018-09-22] MEDS: insulin glargine (Lantus) pen - multi-dose SQ SCH (21:08)
[2018-09-22] MEDS: atorvastatin 20mg tablet PO SCH (21:20)
--- NOTE | 2018-09-22 23:00 | NUR ---
PT is resting with no s/s of distress noted at this time. VSS. Bed is locked and low. Will continue to monitor.
[2018-09-23] VITALS (29 sets, daily range): BP systolic 124–165; BP diastolic 57–92
[2018-09-23] MEDS: mineral oil/petrolatum ophthal oint EACHEYE SCH ×4 (01:29→20:00)
--- NOTE | 2018-09-23 02:00 | NUR ---
PT is resting with no s/s of distress noted at this time. VSS. Bed is locked and low. Will continue to monitor.
[2018-09-23] MEDS: insulin regular, human vial - multi-dose SQ SCH ×4 (03:19→21:02)
[2018-09-23 03:30] LABS: BASOPHILS % (AUTO) 0.2 % (0-1); EOSINOPHILS # (AUTO) 0.3 X10'3 (0-0.9); EOSINOPHILS % (AUTO) 1.6 % (0-6); HEMATOCRIT 22.9 % (42.0-52.0); HEMOGLOBIN 7.4 g/dl (14.0-17.9); LYMPHOCYTES # (AUTO) 3.4 X10'3 (1.1-4.8); LYMPHOCYTES % (AUTO) 17.7 % (21-51); MEAN CORPUSCULAR HEMOGLOBIN 28.3 PG (27.0-31.0); MEAN CORPUSCULAR HGB CONC 32.1 g/dL (33.0-36.5); MEAN CORPUSCULAR VOLUME 88.2 FL (78-98); MEAN PLATELET VOLUME 8.2 FL (7.4-10.4); MONOCYTES # (AUTO) 1.8 X10'3 (0-0.9); MONOCYTES % (AUTO) 9.3 % (2-12); NEUTROPHILS # (AUTO) 13.5 X10'3 (1.8-7.7); NEUTROPHILS % (AUTO) 71.2 % (42-75); PLATELET COUNT 179 X10'3 (140-440); RED CELL DISTRIBUTION WIDTH 18.6 % (11.5-14.5)
[2018-09-23 03:37] LABS: ALANINE AMINOTRANSFERASE 30 U/L (12-78); ALBUMIN 2.2 G/DL (3.4-5.0); ALBUMIN/GLOBULIN RATIO 0.6 (1.1-1.5); ALKALINE PHOSPHATASE 87 IU/L (46-116); ANION GAP 12 (8-16); ASPARTATE AMINO TRANSFERASE 29 U/L (10-37); BILIRUBIN,TOTAL 0.4 MG/DL (0.1-1.0); BLOOD UREA NITROGEN 81 MG/DL (7-18); BUN/CREATININE RATIO 33.8 (5.4-32.0); CALCIUM 7.1 MG/DL (8.5-10.1); CHLORIDE 101 MMOL/L (99-107); GLUCOSE 96 MG/DL (70-104); MAGNESIUM 1.6 MG/DL (1.5-2.4); PHOSPHORUS 3.9 MG/DL (2.3-4.5); POTASSIUM 3.8 MMOL/L (3.5-5.1); SODIUM 138 MMOL/L (135-145); TOTAL CARBON DIOXIDE 24.7 MMOL/L (24-32); TOTAL PROTEIN 5.9 G/DL (6.4-8.2); eGFR 28 ML/MIN
[2018-09-23 04:49] LABS: NUCLEATED RED BLOOD CELLS 2 /100WBC (0-0); TOTAL CELLS COUNTED 100
[2018-09-23 04:50] LABS: ANISOCYTOSIS 2+; PLATELET ESTIMATE NORMAL; POLYCHROMASIA FEW
[2018-09-23 04:51] LABS: TARGET CELLS FEW
[2018-09-23 04:52] LABS: LARGE PLATELETS FEW; POIKILOCYTOSIS FEW
--- NOTE | 2018-09-23 06:37 | NUR ---
Problems reprioritized. Patient report given, questions answered & plan of care reviewed with Preston MAYEN.
[2018-09-23] MEDS: methylnaltrexone br 12mg/0.6ml inj***SubQ only SQ SCH (07:07)
[2018-09-23] MEDS: docusate sodium 100mg/10ml UD cup PO SCH ×2 (07:07→20:00)
[2018-09-23] MEDS: linezolid 600mg/300ml PREMIX 300 ML IV SCH ×2 (07:26→20:47)
[2018-09-23] MEDS: heparin, porcine 5000 units/ml vial SQ SCH ×2 (07:27→20:47)
[2018-09-23] MEDS: lactobacillus rhamnosus 10,000 MMU CELLS/CAPSULE PO SCH ×2 (07:27→20:46)
[2018-09-23] MEDS: famotidine/PF 10 mg/ml inj IV SCH ×2 (07:27→20:46)
[2018-09-23] MEDS ORDERED: methylPREDNISolone sod succ/PF 40mg inj. IV SCH (08:00)
--- NOTE | 2018-09-23 11:18 | NUR ---
Reassessment: Pt would benefit from change in tube feeding formula and rate d/t no longer mechanically ventilated, receiving trach mist. Recommend Nepro at 65 ml/hr, discussed with bedside RN. Pt with rectal tube, 950 ml out yesterday. Pt stopped receiving colace on 09/19 and was receiving antibiotics, which may associated with diarrhea. Will continue to follow. Recommend: 1. Change tube feeding formula and rate to Nepro at 65 ml/hr to provide total volume of 1560 ml, 2808 cals, 126 gm protein, and 1134 ml free water. 2. Any additional water flush per MD 3. Prealbumin q / 4. Monitor need for additional bowel care- hold bowel care with diarrhea 5. Daily wt Addendum: 09/23/18 at [address] Amended: Links added.
--- NOTE | 2018-09-23 15:32 | NUR ---
Pt to IR for TDC placement
[2018-09-23] MEDS ORDERED: LIDOcaine 1%/PF 5ML 10 MG/ML VIAL ONE (15:34)
[2018-09-23] MEDS ORDERED: fentaNYL/PF 50MCG/1 ML 2ML syringe ONE (15:39)
[2018-09-23] MEDS ORDERED: heparin 1,000unit/ml 10ml vial 10 ML ONE (15:44)
--- NOTE | 2018-09-23 18:20 | NUR ---
Patient in room ICU 2041. I have received report and had the opportunity to ask questions and assume patient care.
--- NOTE | 2018-09-23 18:28 | NUR ---
Problems reprioritized. Patient report given, questions answered & plan of care reviewed with Nikki MAYEN.
[2018-09-23] MEDS: atorvastatin 20mg tablet PO SCH (20:46)
[2018-09-23] MEDS: insulin glargine (Lantus) pen - multi-dose SQ SCH (21:03)
[2018-09-24] VITALS (24 sets, daily range): BP systolic 96–144; BP diastolic 52–76
[2018-09-24] MEDS: mineral oil/petrolatum ophthal oint EACHEYE SCH ×4 (02:00→20:00)
[2018-09-24] MEDS: insulin regular, human vial - multi-dose SQ SCH ×3 (03:01→19:47)
[2018-09-24 03:44] LABS: BASOPHILS % (AUTO) 0.1 % (0-1); EOSINOPHILS # (AUTO) 0.4 X10'3 (0-0.9); HEMOGLOBIN 7.3 g/dl (14.0-17.9); LYMPHOCYTES # (AUTO) 2.3 X10'3 (1.1-4.8); LYMPHOCYTES % (AUTO) 12.8 % (21-51); MEAN CORPUSCULAR HEMOGLOBIN 29.3 PG (27.0-31.0); MEAN CORPUSCULAR VOLUME 88.9 FL (78-98); MEAN PLATELET VOLUME 8.1 FL (7.4-10.4); MONOCYTES # (AUTO) 1.4 X10'3 (0-0.9); MONOCYTES % (AUTO) 7.8 % (2-12); NEUTROPHILS # (AUTO) 13.7 X10'3 (1.8-7.7); NEUTROPHILS % (AUTO) 77.3 % (42-75); PLATELET COUNT 197 X10'3 (140-440); RED BLOOD COUNT 2.48 X10'6 (4.70-6.10); RED CELL DISTRIBUTION WIDTH 19.3 % (11.5-14.5); WHITE BLOOD COUNT 17.8 X10'3 (4.5-11.0)
[2018-09-24 04:23] LABS: ALANINE AMINOTRANSFERASE 34 U/L (12-78); ALBUMIN 2.2 G/DL (3.4-5.0); ALBUMIN/GLOBULIN RATIO 0.6 (1.1-1.5); ALKALINE PHOSPHATASE 94 IU/L (46-116); ANION GAP 16 (8-16); ASPARTATE AMINO TRANSFERASE 32 U/L (10-37); BILIRUBIN,TOTAL 0.4 MG/DL (0.1-1.0); BLOOD UREA NITROGEN 110 MG/DL (7-18); BUN/CREATININE RATIO 35.3 (5.4-32.0); CALCIUM 6.5 MG/DL (8.5-10.1); CHLORIDE 99 MMOL/L (99-107); CREATININE 3.12 MG/DL (0.60-1.10); GLUCOSE 106 MG/DL (70-104); MAGNESIUM 1.7 MG/DL (1.5-2.4); PHOSPHORUS 5.6 MG/DL (2.3-4.5); SODIUM 137 MMOL/L (135-145); TOTAL CARBON DIOXIDE 22.5 MMOL/L (24-32); TOTAL PROTEIN 5.7 G/DL (6.4-8.2); eGFR 21 ML/MIN
[2018-09-24 05:27] LABS: ANISOCYTOSIS 2+; PLATELET ESTIMATE NORMAL
[2018-09-24 05:28] LABS: POIKILOCYTOSIS FEW
--- NOTE | 2018-09-24 06:39 | NUR ---
Patient in room ICU 2041. I have received report from Nikki and had the opportunity to ask questions and assume patient care.
[2018-09-24] MEDS ORDERED: methylPREDNISolone sod succ/PF 40mg inj. IV SCH (08:00)
[2018-09-24] MEDS ORDERED: normal saline 1000ml 250 ML IV PRN (08:00)
[2018-09-24] MEDS ORDERED: heparin 1,000unit/ml 10ml vial 10 ML IV ONE (08:00)
[2018-09-24] MEDS: docusate sodium 100mg/10ml UD cup PO SCH ×2 (08:00→20:00)
[2018-09-24] MEDS ORDERED: heparin 1,000 units/ml 10ml inj HE ONE ×2 (08:00)
[2018-09-24] MEDS ORDERED: epoetin 20,000 units/ml inj IV ONE (08:00)
[2018-09-24] MEDS: linezolid 600mg/300ml PREMIX 300 ML IV SCH ×2 (08:45→20:01)
[2018-09-24] MEDS: lactobacillus rhamnosus 10,000 MMU CELLS/CAPSULE PO SCH ×2 (08:46→19:59)
[2018-09-24] MEDS: heparin, porcine 5000 units/ml vial SQ SCH ×2 (08:46→19:55)
[2018-09-24] MEDS: famotidine/PF 10 mg/ml inj IV SCH ×2 (08:46→20:01)
--- NOTE | 2018-09-24 09:23 | NUR ---
0845 BGL 67, administered 15gm of carb via dex 4, 15 minute glucose 90, per protocol drop to a level 4 and cover with 10units of humulin. Held dose as patient running low, minimal response to the 15 gm of carb and patient being non communicative with me this am. will continue to monitor
[2018-09-24 11:29] LABS: HEMATOCRIT 23.7 % (42.0-52.0); HEMOGLOBIN 7.8 g/dl (14.0-17.9); MEAN CORPUSCULAR HEMOGLOBIN 29.4 PG (27.0-31.0); MEAN CORPUSCULAR VOLUME 89.2 FL (78-98); MEAN PLATELET VOLUME 8.1 FL (7.4-10.4); PLATELET COUNT 213 X10'3 (140-440); RED BLOOD COUNT 2.65 X10'6 (4.70-6.10); RED CELL DISTRIBUTION WIDTH 19.4 % (11.5-14.5); WHITE BLOOD COUNT 18.5 X10'3 (4.5-11.0)
--- NOTE | 2018-09-24 18:00 | NUR ---
Patient in room ICU 2041. I have received report from Haroon MAYEN and had the opportunity to ask questions and assume patient care.
[2018-09-24] MEDS: insulin glargine (Lantus) pen - multi-dose SQ SCH (19:50)
[2018-09-24] MEDS: atorvastatin 20mg tablet PO SCH (19:58)
[2018-09-25] VITALS (23 sets, daily range): BP systolic 112–138; BP diastolic 54–74
[2018-09-25] MEDS: mineral oil/petrolatum ophthal oint EACHEYE SCH ×4 (02:00→20:00)
[2018-09-25] MEDS: insulin regular, human vial - multi-dose SQ SCH ×4 (03:20→20:56)
[2018-09-25] MEDS ORDERED: oxyCODONE IR 5mg (immed. release) tablet PO PRN (06:35)
[2018-09-25] MEDS: methylnaltrexone br 12mg/0.6ml inj***SubQ only SQ SCH (06:50)
[2018-09-25] MEDS: linezolid 600mg/300ml PREMIX 300 ML IV SCH (07:18)
[2018-09-25] MEDS: lactobacillus rhamnosus 10,000 MMU CELLS/CAPSULE PO SCH ×2 (07:26→20:44)
[2018-09-25] MEDS: famotidine/PF 10 mg/ml inj IV SCH ×2 (07:26→20:50)
[2018-09-25] MEDS: heparin, porcine 5000 units/ml vial SQ SCH ×2 (07:27→20:48)
[2018-09-25 07:58] LABS: BASOPHILS % (AUTO) 0.2 % (0-1); EOSINOPHILS # (AUTO) 0.7 X10'3 (0-0.9); EOSINOPHILS % (AUTO) 4.3 % (0-6); HEMATOCRIT 22.8 % (42.0-52.0); HEMOGLOBIN 7.4 g/dl (14.0-17.9); LYMPHOCYTES % (AUTO) 13.5 % (21-51); MEAN CORPUSCULAR HEMOGLOBIN 29.4 PG (27.0-31.0); MEAN CORPUSCULAR HGB CONC 32.3 g/dL (33.0-36.5); MEAN PLATELET VOLUME 8.2 FL (7.4-10.4); MONOCYTES # (AUTO) 1.4 X10'3 (0-0.9); MONOCYTES % (AUTO) 9.4 % (2-12); NEUTROPHILS % (AUTO) 72.6 % (42-75); PLATELET COUNT 219 X10'3 (140-440); RED CELL DISTRIBUTION WIDTH 21.1 % (11.5-14.5); WHITE BLOOD COUNT 15.2 X10'3 (4.5-11.0)
[2018-09-25] MEDS: docusate sodium 100mg/10ml UD cup PO SCH ×2 (08:00→20:00)
[2018-09-25 08:38] LABS: ALANINE AMINOTRANSFERASE 50 U/L (12-78); ALBUMIN 2.1 G/DL (3.4-5.0); ALBUMIN/GLOBULIN RATIO 0.6 (1.1-1.5); ALKALINE PHOSPHATASE 100 IU/L (46-116); ANION GAP 12 (8-16); ASPARTATE AMINO TRANSFERASE 42 U/L (10-37); BILIRUBIN,TOTAL 0.4 MG/DL (0.1-1.0); BLOOD UREA NITROGEN 74 MG/DL (7-18); BUN/CREATININE RATIO 28.9 (5.4-32.0); CALCIUM 6.8 MG/DL (8.5-10.1); CHLORIDE 100 MMOL/L (99-107); CREATININE 2.56 MG/DL (0.60-1.10); GLUCOSE 99 MG/DL (70-104); MAGNESIUM 1.6 MG/DL (1.5-2.4); PHOSPHORUS 3.8 MG/DL (2.3-4.5); POTASSIUM 3.7 MMOL/L (3.5-5.1); SODIUM 138 MMOL/L (135-145); TOTAL CARBON DIOXIDE 25.8 MMOL/L (24-32); TOTAL PROTEIN 5.7 G/DL (6.4-8.2); eGFR 26 ML/MIN
--- NOTE | 2018-09-25 08:42 | NUR ---
Steroids D/C'd per Dr. Meraz; dropped to level 2 on hyperglycemic protocol
[2018-09-25 10:30] LABS: PLATELET ESTIMATE NORMAL
[2018-09-25 10:31] LABS: ANISOCYTOSIS 3+; HYPOCHROMASIA 1+; POLYCHROMASIA 2+; TEAR DROP CELLS 1+
--- NOTE | 2018-09-25 18:24 | NUR ---
Problems reprioritized. Patient report given, questions answered & plan of care reviewed with Jesus MAYEN.
--- NOTE | 2018-09-25 19:00 | NUR ---
Patient in room ICU 2041. I have received report from Preston MAYEN and had the opportunity to ask questions and assume patient care.
[2018-09-25] MEDS: atorvastatin 20mg tablet PO SCH (20:44)
[2018-09-25] MEDS: insulin glargine (Lantus) pen - multi-dose SQ SCH (20:58)
[2018-09-26] VITALS (24 sets, daily range): BP systolic 108–137; BP diastolic 57–78
[2018-09-26] MEDS: mineral oil/petrolatum ophthal oint EACHEYE SCH ×4 (02:00→19:18)
[2018-09-26 06:16] LABS: BASOPHILS % (AUTO) 0.1 % (0-1); EOSINOPHILS # (AUTO) 0.6 X10'3 (0-0.9); EOSINOPHILS % (AUTO) 4.2 % (0-6); HEMATOCRIT 22.5 % (42.0-52.0); HEMOGLOBIN 7.5 g/dl (14.0-17.9); LYMPHOCYTES # (AUTO) 1.3 X10'3 (1.1-4.8); LYMPHOCYTES % (AUTO) 8.9 % (21-51); MEAN CORPUSCULAR HEMOGLOBIN 30.4 PG (27.0-31.0); MEAN CORPUSCULAR HGB CONC 33.2 g/dL (33.0-36.5); MEAN CORPUSCULAR VOLUME 91.4 FL (78-98); MEAN PLATELET VOLUME 7.9 FL (7.4-10.4); MONOCYTES # (AUTO) 1.1 X10'3 (0-0.9); MONOCYTES % (AUTO) 7.9 % (2-12); NEUTROPHILS # (AUTO) 11.4 X10'3 (1.8-7.7); NEUTROPHILS % (AUTO) 78.9 % (42-75); PLATELET COUNT 275 X10'3 (140-440); RED BLOOD COUNT 2.46 X10'6 (4.70-6.10); RED CELL DISTRIBUTION WIDTH 22.7 % (11.5-14.5); WHITE BLOOD COUNT 14.5 X10'3 (4.5-11.0)
--- NOTE | 2018-09-26 06:30 | NUR ---
Patient in room ICU 2041. I have received report from FAHEEM Lee and had the opportunity to ask questions and assume patient care.
[2018-09-26 06:32] LABS: ALANINE AMINOTRANSFERASE 57 U/L (12-78); ALBUMIN 2.2 G/DL (3.4-5.0); ALBUMIN/GLOBULIN RATIO 0.6 (1.1-1.5); ALKALINE PHOSPHATASE 104 IU/L (46-116); ANION GAP 11 (8-16); ASPARTATE AMINO TRANSFERASE 38 U/L (10-37); BILIRUBIN,TOTAL 0.6 MG/DL (0.1-1.0); BLOOD UREA NITROGEN 87 MG/DL (7-18); CALCIUM 6.7 MG/DL (8.5-10.1); CHLORIDE 100 MMOL/L (99-107); CREATININE 3.11 MG/DL (0.60-1.10); GLUCOSE 77 MG/DL (70-104); MAGNESIUM 1.8 MG/DL (1.5-2.4); PHOSPHORUS 4.7 MG/DL (2.3-4.5); POTASSIUM 3.7 MMOL/L (3.5-5.1); SODIUM 139 MMOL/L (135-145); TOTAL CARBON DIOXIDE 27.9 MMOL/L (24-32); TOTAL PROTEIN 5.9 G/DL (6.4-8.2); eGFR 21 ML/MIN
[2018-09-26 07:34] LABS: ANISOCYTOSIS 3+; PLATELET ESTIMATE NORMAL
[2018-09-26 07:35] LABS: ELLIPTOCYTES FEW; POLYCHROMASIA FEW; TEAR DROP CELLS FEW
[2018-09-26] MEDS: docusate sodium 100mg/10ml UD cup PO SCH ×2 (07:35→19:21)
[2018-09-26] MEDS: famotidine/PF 10 mg/ml inj IV SCH ×2 (08:31→19:19)
[2018-09-26] MEDS: lactobacillus rhamnosus 10,000 MMU CELLS/CAPSULE PO SCH ×2 (08:31→19:21)
[2018-09-26] MEDS: heparin, porcine 5000 units/ml vial SQ SCH ×2 (08:31→19:19)
--- NOTE | 2018-09-26 15:00 | NUR ---
Discontinued rectal tube.
--- NOTE | 2018-09-26 16:08 | NUR ---
Reassessment: Pt would benefit from change in tube feeding formula and rate d/t no longer mechanically ventilated, receiving trach mist. Recommend Nepro at 65 ml/hr, discussed with bedside RN. Pt with rectal tube, 950 ml out yesterday. Pt stopped receiving colace on 09/19 and was receiving antibiotics, which may associated with diarrhea. Will continue to follow. Recommend: 1. Change tube feeding formula and rate to Nepro at 65 ml/hr to provide total volume of 1560 ml, 2808 cals, 126 gm protein, and 1134 ml free water. 2. Any additional water flush per MD 3. Prealbumin q / 4. Monitor need for additional bowel care- hold bowel care with diarrhea 5. Daily wt Addendum: 09/26/18 at [address] Amended: Links added.
--- NOTE | 2018-09-26 18:30 | NUR ---
Patient in room ICU 2041. I have received report from FAHEEM Gregorio, and had the opportunity to ask questions and assume patient care.
--- NOTE | 2018-09-26 18:35 | NUR ---
Problems reprioritized. Patient report given, questions answered & plan of care reviewed with FAHEEM Lange.
[2018-09-26] MEDS: insulin glargine (Lantus) pen - multi-dose SQ SCH (21:00)
[2018-09-26] MEDS: atorvastatin 20mg tablet PO SCH (22:21)
[2018-09-27] VITALS (19 sets, daily range): BP systolic 90–139; BP diastolic 49–65
[2018-09-27] MEDS: mineral oil/petrolatum ophthal oint EACHEYE SCH ×3 (01:35→14:00)
[2018-09-27 02:45] LABS: BASOPHILS % (AUTO) 0.2 % (0-1); EOSINOPHILS # (AUTO) 0.6 X10'3 (0-0.9); EOSINOPHILS % (AUTO) 3.7 % (0-6); HEMOGLOBIN 7.1 g/dl (14.0-17.9); LYMPHOCYTES % (AUTO) 6.6 % (21-51); MEAN CORPUSCULAR HEMOGLOBIN 30.1 PG (27.0-31.0); MEAN CORPUSCULAR HGB CONC 33.4 g/dL (33.0-36.5); MEAN CORPUSCULAR VOLUME 90.2 FL (78-98); MEAN PLATELET VOLUME 8.2 FL (7.4-10.4); MONOCYTES # (AUTO) 1.2 X10'3 (0-0.9); MONOCYTES % (AUTO) 7.5 % (2-12); NEUTROPHILS # (AUTO) 12.6 X10'3 (1.8-7.7); PLATELET COUNT 261 X10'3 (140-440); RED BLOOD COUNT 2.37 X10'6 (4.70-6.10); RED CELL DISTRIBUTION WIDTH 21.7 % (11.5-14.5); WHITE BLOOD COUNT 15.4 X10'3 (4.5-11.0)
[2018-09-27 02:51] LABS: HEMATOCRIT 21.4 % (42.0-52.0)
[2018-09-27 03:14] LABS: ALANINE AMINOTRANSFERASE 71 U/L (12-78); ALBUMIN/GLOBULIN RATIO 0.5 (1.1-1.5); ALKALINE PHOSPHATASE 111 IU/L (46-116); ANION GAP 11 (8-16); ASPARTATE AMINO TRANSFERASE 49 U/L (10-37); BILIRUBIN,TOTAL 0.5 MG/DL (0.1-1.0); BLOOD UREA NITROGEN 97 MG/DL (7-18); CALCIUM 6.5 MG/DL (8.5-10.1); CHLORIDE 101 MMOL/L (99-107); CREATININE 3.35 MG/DL (0.60-1.10); GLUCOSE 143 MG/DL (70-104); MAGNESIUM 1.7 MG/DL (1.5-2.4); PHOSPHORUS 4.6 MG/DL (2.3-4.5); POTASSIUM 3.4 MMOL/L (3.5-5.1); PREALBUMIN 23.5 MG/DL (19-36); SODIUM 138 MMOL/L (135-145); TOTAL PROTEIN 5.8 G/DL (6.4-8.2); eGFR 19 ML/MIN
--- NOTE | 2018-09-27 06:11 | NUR ---
Problems reprioritized. Patient report given, questions answered & plan of care reviewed with FAHEEM Gregorio.
--- NOTE | 2018-09-27 06:30 | NUR ---
Patient in room ICU 2041. I have received report from FAHEEM Lange and had the opportunity to ask questions and assume patient care.
[2018-09-27] MEDS: docusate sodium 100mg/10ml UD cup PO SCH (08:00)
[2018-09-27] MEDS: methylnaltrexone br 12mg/0.6ml inj***SubQ only SQ SCH (08:00)
[2018-09-27] MEDS ORDERED: normal saline 1000ml 250 ML IV PRN (08:00)
[2018-09-27] MEDS ORDERED: heparin 1,000 units/ml 10ml inj HE ONE ×2 (08:00)
[2018-09-27] MEDS ORDERED: heparin 1,000unit/ml 10ml vial 10 ML IV ONE (08:00)
[2018-09-27] MEDS ORDERED: epoetin 20,000 units/ml inj IV ONE (08:00)
[2018-09-27] MEDS: lactobacillus rhamnosus 10,000 MMU CELLS/CAPSULE PO SCH (08:02)
[2018-09-27] MEDS: famotidine/PF 10 mg/ml inj IV SCH (08:02)
[2018-09-27] MEDS: heparin, porcine 5000 units/ml vial SQ SCH (08:03)
--- NOTE | 2018-09-27 09:30 | NUR ---
HD run started.
--- NOTE | 2018-09-27 13:00 | NUR ---
HD run complete 1.7 L off.
--- NOTE | 2018-09-27 14:53 | NUR ---
Report given to [facility] nurse FAHEEM Huizar
--- NOTE | 2018-09-27 15:17 | NUR ---
EMS transport arrived to transfer [facility].
== END 2018-09-27 15:58 | DRG 130 ==
LOC: ICU 2S 09:45
PROVIDERS: ADMIT Internal Medicine Critical Care Medicine
PROC: 30233N1 Transfusion of Nonautologous Red Blood Cells into Peripheral Vein, Percutaneous Approach (ICD-10-PCS; principal; 2018-09-14)
PROC: 5A1955Z Respiratory Ventilation, Greater than 96 Consecutive Hours (ICD-10-PCS; 2018-09-14)
PROC: 5A1D90Z Performance of Urinary Filtration, Continuous, Greater than 18 hours Per Day (ICD-10-PCS; 2018-09-14)
PROC: 02HV33Z Insertion of Infusion Device into Superior Vena Cava, Percutaneous Approach (ICD-10-PCS; 2018-09-14)
PROC: 04HY32Z Insertion of Monitoring Device into Lower Artery, Percutaneous Approach (ICD-10-PCS; 2018-09-14)
PROC: 4A133B1 Monitoring of Arterial Pressure, Peripheral, Percutaneous Approach (ICD-10-PCS; 2018-09-14)
PROC: 4A133J1 Monitoring of Arterial Pulse, Peripheral, Percutaneous Approach (ICD-10-PCS; 2018-09-14)
PROC: 5A1D90Z Performance of Urinary Filtration, Continuous, Greater than 18 hours Per Day (ICD-10-PCS; 2018-09-16)
PROC: 02HV33Z Insertion of Infusion Device into Superior Vena Cava, Percutaneous Approach (ICD-10-PCS; 2018-09-17)
PROC: 4A02X4A Measurement of Cardiac Electrical Activity, Guidance, External Approach (ICD-10-PCS; 2018-09-17)
PROC: B548ZZA Ultrasonography of Superior Vena Cava, Guidance (ICD-10-PCS; 2018-09-17)
PROC: 5A1D90Z Performance of Urinary Filtration, Continuous, Greater than 18 hours Per Day (ICD-10-PCS; 2018-09-18)
PROC: 5A1D90Z Performance of Urinary Filtration, Continuous, Greater than 18 hours Per Day (ICD-10-PCS; 2018-09-20)
PROC: 30233N1 Transfusion of Nonautologous Red Blood Cells into Peripheral Vein, Percutaneous Approach (ICD-10-PCS; 2018-09-21)
PROC: 30233N1 Transfusion of Nonautologous Red Blood Cells into Peripheral Vein, Percutaneous Approach (ICD-10-PCS; 2018-09-22)
PROC: 5A1D70Z Performance of Urinary Filtration, Intermittent, Less than 6 Hours Per Day (ICD-10-PCS; 2018-09-22)
PROC: 0JH63XZ Insertion of Tunneled Vascular Access Device into Chest Subcutaneous Tissue and Fascia, Percutaneous Approach (ICD-10-PCS; 2018-09-23)
PROC: 02HV33Z Insertion of Infusion Device into Superior Vena Cava, Percutaneous Approach (ICD-10-PCS; 2018-09-23)
PROC: B5181ZA Fluoroscopy of Superior Vena Cava using Low Osmolar Contrast, Guidance (ICD-10-PCS; 2018-09-23)
PROC: B548ZZA Ultrasonography of Superior Vena Cava, Guidance (ICD-10-PCS; 2018-09-23)
PROC: 5A1D70Z Performance of Urinary Filtration, Intermittent, Less than 6 Hours Per Day (ICD-10-PCS; 2018-09-24)
PROC: 30233N1 Transfusion of Nonautologous Red Blood Cells into Peripheral Vein, Percutaneous Approach (ICD-10-PCS; 2018-09-27)
PROC: 5A1D70Z Performance of Urinary Filtration, Intermittent, Less than 6 Hours Per Day (ICD-10-PCS; 2018-09-27)
DX: J96.01 Acute respiratory failure with hypoxia (principal); J15.212 Pneumonia due to Methicillin resistant Staphylococcus aureus; N17.9 Acute kidney failure, unspecified; J81.1 Chronic pulmonary edema; E11.22 Type 2 diabetes mellitus with diabetic chronic kidney disease; Z93.0 Tracheostomy status; F20.9 Schizophrenia, unspecified; I50.30 Unspecified diastolic (congestive) heart failure; I13.0 Hypertensive heart and chronic kidney disease with heart failure and stage 1 through stage 4 chronic kidney disease, or unspecified chronic kidney disease; E78.00 Pure hypercholesterolemia, unspecified; N18.9 Chronic kidney disease, unspecified; Z82.41 Family history of sudden cardiac death; Z82.49 Family history of ischemic heart disease and other diseases of the circulatory system; Z86.73 Personal history of transient ischemic attack (TIA), and cerebral infarction without residual deficits; Z59.0 Homelessness; Z56.0 Unemployment, unspecified; Z90.49 Acquired absence of other specified parts of digestive tract
CPT/HCPCS: 36415; 36558; 36573; 36600; 71045; 76937; 80053; 80069; 81001; 82150; 82330; 82803; 82810; 82948; 83036; 83605; 83690; 83735; 83880; 84100; 84134; 84145; 84439; 84443; 85018; 85025; 85027; 85379; 85384; 85610; 85730; 86885; 86900; 86901; 86920; 87040; 87070; 87077; 87088; 87186; 87340; 90935; 93308; 94002; 94003; 94640; 94760; 97110; 97163; 97530; A9270; C1750; C1894; C9113; G0257; G0378; J0171; J0360; J0885; J1170; J1250; J1644; J1815; J1940; J2001; J2020; J2250; J2543; J2920; J2930; J3010; J3475; J3490; J7030; J7060; P9016